=== PATIENT | male | born 1985 | race Caucasian/White ===

== ENCOUNTER 2017-06-09 21:35 | Inpatient (IN) | payer MEDICAID ==
[~2017-06-09] VITALS: Ht 193 cm; Wt 158.8 kg
[2017-06-09 21:35] VITALS: BP 136/87
[~2017-06-09 21:35] MED LIST: BACTRIM DS TAB1 EACH PO; CEPHALEXIN 500500 M3 PO; CIPRO500 MG PO; CLEOCIN HCL150 MG PO; FLAGYL500 MG PO; GLUCOTROL5 MG PO; HYDROCODONE-AP1 EAC6 PO; HYDROCODONE-APA1 TA1 PO; LASIX 20 MG TAB20 MG PO; METFORMIN HCL500 MG PO; PENICILLIN VK250 MG PO; PERCOCET 10-321 EACH PO; TRAMADOL 50 MG50 MG PO; ULTRAM 50MG TAB50 MG PO; ZYVOX600 MG PO
[2017-06-09] MEDS ORDERED: CLEOCIN HCL150 MG PO ×2 (21:42)
[2017-06-09 22:10] LABS: ABSOLUTE BASOPHILS 0.1 thou/uL (0.0-0.2); ABSOLUTE EOSINOPHILS 0.2 thou/uL (0.0-0.7); ABSOLUTE LYMPHOCYTES 1.4 thou/uL (0.8-5.3); ABSOLUTE MONOCYTES 0.7 thou/uL (0.0-1.2); ABSOLUTE NEUTROPHILS 7.6 thou/uL (1.6-8.1); EOSINOPHILS 2.3 %; HEMATOCRIT 46.3 % (42.0-52.0); HEMOGLOBIN 15.3 gm/dL (14.0-18.0); LYMPHOCYTES 14.3 %; MCH 26.8 pg (26.0-34.0); MCV 81.2 fL (80.0-100.0); MONOCYTES 7.1 %; MPV 8.3 fl. (7.2-11.1); NUCLEATED RBCS 0 /100WBC; PLATELET COUNT* 264 thou/uL (150-400); POLYS 75.3 %; WBC 10.1 thou/uL (4.0-11.0)
[2017-06-09 22:20] LABS: CALCIUM 9.2 mg/dL (8.5-10.1); CREATININE 1.2 mg/dL (0.6-1.3); POTASSIUM 4.3 mmol/L (3.5-5.1)
[2017-06-09 22:24] LABS: ALBUMIN 3.4 g/dL (3.4-5.0); TOTAL BILIRUBIN 0.5 mg/dL (<0.1-1.0); TOTAL PROTEIN 7.7 g/dL (6.4-8.2)
[2017-06-09 23:25] LABS: ESR (SEDRATE) 21 mm/hr (0-15)
[2017-06-09 23:40] VITALS: BP 144/78
--- NOTE | 2017-06-10 03:24 | NUR ---
PT MOVED TO HOSPITAL BED. NO C/O'S AT PRESENT.
[2017-06-10 06:21] VITALS: BP 134/67
[2017-06-10 07:23] VITALS: BP 123/70
--- NOTE | 2017-06-10 15:13 | NUR ---
WOUND CARE NOTE: ASSESSMENT OF FOOT WOUNDS WITH TITLE EXAMINER. PATIENT KNOWN TO ME FROM PREVIOUS HOSPITAL STAY. NOW ADMITS WITH AN ULCERATION TO THE LEFT FOOT IN ADDITION TO THE HEALING ULCERATIONS ON THE RIGHT. LEFT FOOT: DIABETIC FOOT ULCER MEASURING 2X1.6X1.1. WOUND BED WITH YELLOW, MOIST, ADHERENT SLOUGH TO APPROXIMATELY 90% OF WOUND BED 10% OF WOUND BED WITH RED, NON-GRANULAR TISSUE. INES-WOUND IS CALLOUSED. AFTER TITLE EXAMINER ASSESSMENT, HELD PRESSURE. THEN DRESSED WITH MAXORB FOR MRI. COVERED WITH ABD. SECURED WITH ROLL GAUZE. RIGHT FOOT, PLANTAR SURFACE: DIABETIC FOOT ULCER MEASURING 0.6X0.6X0.2. PINK, MOIST WOUND BED. INES-WOUND INTACT. CLEANSED WITH WOUND CLEANSER, PATTED DRY. APPLIED AQUACEL AG AND COVERED WITH ABD. SECURED WITH ROLL GAUZE. RIGHT FOOT, LATERAL: HEALING DIABETIC FOOT WOUND MEASURING 1.5X2X0.2. AREA IS WHERE THE INCISION LINE WAS FROM THE AMPUTATION. INES-WOUND IS CALLOUSED. WOUND BED IS RED, MOIST. CLEANSED WITH WOUND CLEANSER, PATTED DRY. APPLIED AQUACEL AG AND COVERED WITH ABD. SECURED WITH ROLL GAUZE. PATIENT WAS EDUCATED ON IMPORTANCE OF SMOKING CESSATION, WILL NEED CONTINUING EDUCATION. ALSO EDUCATED ON THE IMPORTANCE OF KEEPING OFF WOUNDS. RECOMMEND ENCOURAGE GOOD NUTRITION/HYDRATION TIGHT BLOOD GLUCOSE CONTROL SMOKING CESSATION KEEP OFF WOUNDS PATIENT NEEDS BED ADMINISTRATIVE OFFICE CLERK
[2017-06-10 16:00] VITALS: BP 102/74
--- NOTE | 2017-06-10 17:57 | NUR ---
PATIENT IS ALERT AND ORIENTED SINCE ARRIVING TO THE FLOOR FROM THE ER. SOME COMPLAINTS OF PAIN AFTER DR CLEANED FOOT WOUND WAS CONTROLLED WELL WITH ORAL PAIN MEDICATIONS. PATIENT IS LYING IN BED RESTING WITH HIS GIRLFRIEND. IV FLUIDS RUNNING IN LEFT FOREARM. WOUNDS DRESSED AND PICTURES TAKEN. CALL LIGHT IN REACH, WILL CONTINUE TO MONITOR.
[2017-06-10 20:00] VITALS: BP 113/66
[2017-06-11 03:50] LABS: HEMOGLOBIN 15.5 gm/dL (14.0-18.0); MCH 27.2 pg (26.0-34.0); MCHC 33.8 g/dL (28.0-37.0); MCV 80.6 fL (80.0-100.0); MPV 8.9 fl. (7.2-11.1); RBC 5.71 mil/uL (4.50-6.00); WBC 10.8 thou/uL (4.0-11.0)
[2017-06-11 04:11] LABS: CALCIUM 9.1 mg/dL (8.5-10.1); CREATININE 0.8 mg/dL (0.6-1.3); MAGNESIUM 1.7 mg/dL (1.8-2.4); POTASSIUM 4.2 mmol/L (3.5-5.1)
--- NOTE | 2017-06-11 04:42 | NUR ---
ASSUMED CARE OF PT AT 1900, PT SLEEPING BUT AROUSABLE AND ORIENTED X4.VS AND ASSESSMENT STABLE PT DENIED ANY COMPLAINTS AND SLEPT UNTIL 330 AM. PT NPO AFTER MN. WILL MONITOR
[2017-06-11 07:30] VITALS: BP 135/84
--- NOTE | 2017-06-11 07:50 | CON ---
[address] [address] CONSULTATION Name: ANGEL LEE JR Room: [address] IN [facility]#: [id number] Admission: 06/09/17 Attend Phys: Ngozi Browne Discharge: Date of : 87 Report #: [id number] THIS REPORT FOR: //name// CC: FRANCISCO physician/PCP Dave Fuller DATE OF SERVICE: 06/10/2017 ATTENDING PHYSICIAN: Dr. Fuller. REASON FOR EVALUATION: Deep infection, left foot setting of diabetes mellitus. HISTORY OF PRESENT ILLNESS: Chart reviewed, patient examined. This is a 31-year-old man that I have known was hospitalized 02/2017, was diagnosed with deep infection involving his right foot, underwent resection, right distal fifth metatarsal and amputation of the fifth toe and cultures confirmed to have MRSA. He generally healed that, however, developed plantar callus over the left foot midportion over the line of the third MTP joint. He has been followed as an outpatient by Dr. Ly, did undergo debridement and has a concern about osteomyelitis based on plain film. Sed rate was 21, empirically started on piperacillin-tazobactam as well as vancomycin. ALLERGIES: None known. MEDICATIONS: Include Zosyn, vancomycin, metformin, tramadol. PAST MEDICAL HISTORY: As described above, diabetes mellitus type 2, history of osteomyelitis post right fifth toe amputation with metatarsal osteoectomy. SOCIAL HISTORY: Smokes pack a day last 17 years. No ethanol. FAMILY HISTORY: Noncontributory. REVIEW OF SYSTEMS: Denies significant pulmonary or gastrointestinal related complaints. PHYSICAL EXAMINATION: GENERAL: He is pleasant, alert, cooperative, in mild distress. VITAL SIGNS: Temperature 97.7, pulse 99, respirations 16, blood pressure 123/70. SKIN: Warm, dry, no rashes. HEENT: Otherwise, unremarkable. NECK: Supple. LUNGS: Clear to auscultation. HEART: Regular, do not appreciate any murmur. ABDOMEN: [place] [address] CONSULTATION Name: JESUSANGEL KURTZUS ALCARAZ Room: [address] IN [facility]#: [id number] Admission: 06/09/17 Attend Phys: Ngozi Browne Discharge: Date of : 87 Report #: [id number] EXTREMITIES: Left foot plantar aspect has a somewhat ovoid shaped wound. There is moderate degree of inflammation noted. It is palpably tender around the margins. There is an evident odor. GENITOURINARY: Deferred. RECTAL: Deferred. LABORATORY DATA: Cultures pending. Gram stain showed gram-positive cocci. X-ray of the foot showed soft tissue wound with circumferential soft tissue swelling, periosteal reaction involving the proximal aspect of the third proximal phalanx. CBC: White count of 10.1, H and H 15.3 and 46.3, platelets of 264. Sed rate of 21. CRP of 54.1. Electrolytes: Sodium 147, potassium 4.3, chloride 99, bicarbonate is 32, anion gap of 6, BUN and creatinine 11 and 1.2. LFTs unremarkable. Albumin 3.4, total protein of 7.7, estimated GFR of 71. ASSESSMENT AND PLAN: Probable osteomyelitis involving the left foot third proximal digit, may involve the metatarsal as well. Continue empiric antimicrobial therapy. Await cultures. Adjust regimen as required. Wound care and possible operative intervention per Dr. Ly. Have to arrange outpatient therapy. It is notable he has no insurance at this point. <ELECTRONICALLY SIGNED> By: Casimiro Cuadra MD 06/11/17 0750 1148 1840Jomodesto Cuadra MD /nt
[2017-06-11 12:10] VITALS: BP 135/84
--- NOTE | 2017-06-11 17:51 | NUR ---
PATIENT IS ALERT AND ORIENTED TODAY, WENT TO SURGERY TODAY AND HAS BEEN DOING FINE SINCE THEN. NO COMPLAINTS OF ANY PAIN SINCE RETURNING FROM THE OR. IV RESTARTED IN RIGHT HAND AND IT IS WORKING WELL WITH ANTIBIOTICS RUNNING. PATIENT IS NON WEIGHT BEARING ON LEFT FOOT, USING URINAL. PATIENT HAS REFUSED INSULIN AND METFORMIN TODAY SINCE HAS EATEN. VITAL SIGNS STABLE RETURNED FROM THE OR ON 2 LITERS OF OXYGEN. WILL CONTINUE TO MONITOR.
[2017-06-11 20:00] VITALS: BP 117/71
[2017-06-12 03:56] VITALS: BP 131/76
[2017-06-12 04:39] LABS: HEMATOCRIT 43.6 % (42.0-52.0); HEMOGLOBIN 14.5 gm/dL (14.0-18.0); MCHC 33.4 g/dL (28.0-37.0); MPV 8.5 fl. (7.2-11.1); RBC 5.38 mil/uL (4.50-6.00); RDW-CV 13.9 % (10.5-14.5); WBC 11.2 thou/uL (4.0-11.0)
[2017-06-12 05:01] LABS: CALCIUM 8.8 mg/dL (8.5-10.1); CREATININE 0.7 mg/dL (0.6-1.3); MAGNESIUM 1.8 mg/dL (1.8-2.4); POTASSIUM 4.1 mmol/L (3.5-5.1)
--- NOTE | 2017-06-12 05:30 | NUR ---
ASSUMED CARE OF PT AT 1900 PT ALERT AND ORIENTED X4 VS AND ASSESSMENT STABLE BILATERAL FOOT DRSGS INTACT. PT DENIED ANY COMPLAINTS AND SLEPT THROUGH THE NIGHT. WILL MONITOR
[2017-06-12 10:57] VITALS: BP 136/74
[2017-06-12 16:25] VITALS: BP 135/72
--- NOTE | 2017-06-12 16:35 | NUR ---
RE: PHARMACY VANCOMYCIN DOSING (INFECTED FOOT WOUND, R/O OSTEOMYELITIS). PT RECEIVING VANCOMYCIN 1.5 GM IV Q8H. PT HAD VANCOMYCIN TROUGH RESULT OF 10 DRAWN AT APPROPRIATE TIME. (NOTE PRIOR TROUGH OF 11 ON 1.25 GM IV Q8H). WILL RE-CHECK TROUGH PRIOR TO 06/13/17 14:00 DOSE. WILL FOLLOW. THANK YOU.
--- NOTE | 2017-06-12 17:15 | NUR ---
JOSEY/H[facility]ANARC HERE MOST OF THE AFTERNOON HELPING PT.FILL OUT MEDICAID APPLICATION.
--- NOTE | 2017-06-12 17:22 | NUR ---
PATIENT IS ALERT AND ORIENTED TODAY. HAS BEEN RESTING WELL AND NOT COMPLAINING OF MUCH PAIN AT ALL. VITAL SIGNS STABLE TODAY ON ROOM AIR. DRESSING NOT CHANGED TODAY DUE TO PATIENT SLEEPING AND DR SAID IT COULD BE DONE TOMORROW. PATIENT HAS BEEN REFUSING INSULIN TODAY, SAYS BLOOD SUGARS ARE CONTROLLED AT 190, EDUCATION HAS BEEN DONE WITHOUT MUCH SUCCESS. CALL LIGHT IN REACH, WILL CONTINUE TO MONITOR.
[2017-06-12 20:00] VITALS: BP 133/75
[2017-06-12 23:43] VITALS: BP 107/54
--- NOTE | 2017-06-13 05:09 | NUR ---
ASSUMED CARE OF PATIENT AT APPROXIMATELY 1999. UPON FIRST ASSESSMENT, PATIENT WAS ASLEEP IN BED WITH HIS SIGNIFICANT OTHER. PATIENT HAS DENIED ANY PAIN AND HAS NOT ASKED FOR ANY ORDERED PAIN MEDICATIONS PRN. PATIENT'S DRESSING ON HIS RIGHT FOOT IS C/D/I. PATIENT A/O X 4 AND VSS. PATIENT'S DRESSING TO BE CHANGED TODAY. PATIENT WAS SLEEPING DURING DRESSING CHANGE YESTERDAY (06-12-17) AND DR. ALANIS AGREED THAT THE CHANGE COULD BE POSTPONED UNTIL TODAY (06/13/17) WHEN PATIENT WAS AWAKE AND MORE ALERT. NURSING TO FOLLOW UP NECESSARY. ALL FALL PRECAUTIONS IN PLACE, INCLUDING CALL LIGHT WITHIN REACH. WILL CONTINUE TO MONITOR CLOSELY.
[2017-06-13 07:30] VITALS: BP 128/75
[2017-06-13 13:43] VITALS: BP 128/75
[2017-06-13 14:28] VITALS: BP 128/75
--- NOTE | 2017-06-13 15:20 | NUR ---
CONSULTED TO PLACE PICC FOR MOTOR VEHICLES INSPECTOR ATB THERAPY FOR OSTEOMYELITIS. CONSENT AND ORDER NOTED. PROCEDURE WELL RISK AND BENIFITS DISCUSSED WITH PT. HE VOICED UNDERSTANDING. RIGHT UPPER ARM ASSESSED WTIH ULTRASOUND AND BASILIC VEIN IDENTIFIED AND WIDLEY PATENT. A 3FR. SINGLE LUMAN POWER PICC PLACED PER HOSPITAL POLICY. LINE TRIMMED TO 50CM AND ADVANCED LEAVING 3CM EXTERNAL. STAT CHEST X-RAY SHOWS LINE IN GOOD POSITION AT CAJ. LINE RELEASED FOR USE TO PRIMARY NURSING. PROCEDURE TOLERATED WELL.
--- NOTE | 2017-06-13 16:15 | NUR ---
MET WITH PT. TO DISCUSS DISCHARGE. HE HAD TOLD EARLIER HE WAS AGREEABLE TO COMING INTO HOSPITAL DAILY FOR IV INFUSION. HE CONFIRMED THIS TO ME. DISCUSSED TIME TO BE HERE TOMORROW AT 1:30 AND COME TO ADMITTING. ON WEEKENDS HE WILL NEED TO COME TO ER EARLY POSSIBLE FOR INFUSIONS. EXPLAINED F/U WITH IN INFUSION CLINIC AND WITH ON SATURDAY. HE WILL CALL OFFICE TO SEE WHAT TIME TO COME INON SAT. OFFICE IS CLOSED AT THIS TIME. HE SAID HE AND 'DON'T ALWAYS AGREE ON SCHEDULING. I USUALLY GIVE HIM WHAT HE WANTS, BUT NOT ALWAYS.' ENCOURAGED HIM TO BE COMPLIANT. HE SAID HE CAN DO HIS DAILY DRESSING CHANGES. HE DID THE DRESSINGS ON HIS OTHER FOOT. HE HAD NO FURTHER QUESTIONS. NRUSING TO GIVE HIM A WEEKS WORTH OF DRESSINGS. HE IS TO ASK FOR MORE ON SATURDAY. CM HAD FAXED ORDERS AND FACE SHEET EARLIER TO SCHEDULING [id number].
[2017-06-13] MEDS ORDERED: BACTRIM DS TAB1 EACH PO (16:22)
[2017-06-13] MEDS ORDERED: CUBICIN500 MG IVPB (16:23)
--- NOTE | 2017-06-13 17:06 | NUR ---
PATIENT LEFT UNIT AT 1700. ALERT AND ORIENTED X4. UP WITH STAND BY ASSIST WITH SURGICAL SHOE AND CANE. PICC LINE IN PLACE FOR OUTPATIENT INFUSION. DENIES NEED FOR PAIN MEDICATION. DENIES NAUSEA. IV INFILTRATED THIS AM AND DC'D. ALL PERSONAL ITEMS LEFT WITH PATIENT. DISCHARGE INSTRUCTIONS SENT WITH PATIENT. VSS ON ROOM AIR. HOURLY ROUNDS HAVE BEEN MAINTAINED THROUGHOUT SHIFT. LEFT WITH GIRLFRIEND VIA CAR.
[2017-06-13 17:08] VITALS: BP 128/75
--- NOTE | 2017-06-19 13:02 | CON ---
[address] [address] CONSULTATION Name: ANGEL LEE JR Room: [address] IN ..#: [id number] Admission: 06/09/17 Attend Phys: Ngozi Browne Discharge: 06/13/17 Date of : 87 Report #: [id number] THIS REPORT FOR: //name// CC: FRANCISCO physician/PCP Dave Fuller DATE OF SERVICE: 06/12/2017 CHIEF COMPLAINT: Postoperative day #1 for resection, left distal third metatarsal and third toe for osteomyelitis. The patient's preoperative wound culture grew MRSA and Acinetobacter. He is on parenteral vancomycin with good tolerance. He had been afebrile with no constitutional symptoms. Surgical tissue and bone cultures showing gram-positive cocci and gram-negative cocci. LABORATORY DATA: WBC 11.2, RBC 5.38, hemoglobin 14.5, hematocrit 43.6, platelets 256. BUN 8, creatinine 0.7 and glucose 222. PHYSICAL EXAMINATION: GENERAL: The patient is sleeping comfortably in bed, his dressing is dry, clean and intact without any bleed through. PLAN: Since the patient's sleeping I will change his bandage in the morning. Discussed outpatient treatment options to include wound vacuum versus open packing and offloading. <ELECTRONICALLY SIGNED> By: Ford Ly DPM 06/19/17 1302 1713 [id number] Ly DPM /ninoska
--- NOTE | 2017-06-19 13:02 | OP ---
[facility] [address] [place] [address] OPERATIVE REPORT Name: ANGEL LEE JR Room: [address]#: [id number] Admission: 06/09/17 Attend Phys: Ngozi Browne Discharge: 06/13/17 Date of : 87 Report #: [id number] THIS REPORT FOR: //name// CC: FRANCISCO physician/PCP Dave Fuller DATE OF SERVICE: 06/11/2017 PREOPERATIVE DIAGNOSIS: Osteomyelitis, left third metatarsophalangeal joint with a nonhealing ulceration. POSTOPERATIVE DIAGNOSIS: Osteomyelitis, left third metatarsophalangeal joint with a nonhealing ulceration. PROCEDURE: Resection, left distal third metatarsal and third toe. ANESTHESIA: General LMA. ESTIMATED BLOOD LOSS: Minimal. HEMOSTASIS: Left ankle pneumatic tourniquet at 275 mmHg. INJECTABLES: 30 mL of a 1:1 mixture of 0.5% Marcaine plain and 1% lidocaine plain. SPECIMENS: Left third metatarsal and left third toe. CULTURES: 1. Bone, left third metatarsal, aerobic and anaerobic. 2. Soft tissue, left foot, aerobic and anaerobic. SUTURES: 3-0 nylon. COMPLICATIONS: None. DESCRIPTION OF PROCEDURE: The patient was brought to the OR and placed on the table supine with induction of general LMA anesthesia. A well-padded left ankle pneumatic tourniquet was placed. A local anesthetic block was given to left foot, which was then prepped and draped aseptically. After exsanguination and inflation of the tourniquet, a dorsal linear incision was created over the left third metatarsal and circumferentially around the third toe at the MTP level. Layered anatomic dissection carried down to the MTP and the toe was disarticulated at this level. There was boggy infiltration of the subcutaneous tissue about the joint, indicative of a deep soft tissue infection and septic arthritis. There is discoloration of the phalangeal base and distal third metatarsal head. There is no visible lysis, but the bone was [place] [address] OPERATIVE REPORT Name: ANGEL LEE JR Room: [address] IN [facility].#: [id number] Admission: 06/09/17 Attend Phys: Ngozi Browne Discharge: 06/13/17 Date of : 87 Report #: [id number] and soft to the touch when debrided with bone cutters. A access services representative portion of bone from the plantar third metatarsal head was sent for aerobic and anaerobic bone cultures and the remaining distal third metatarsal and third toe were sent for surgical pathology. Paralegal Supervisor soft tissue from the plantar foot ulcer was excised and sent for aerobic and anaerobic tissue culture. Debridement of tendons and soft tissue was achieved and electrocautery was used for intraoperative hemostasis. The wound was flushed with sterile saline with bacitracin irrigant and dried. The dorsal incision was sutured with 3-0 nylon in simple interrupted fashion. The plantar wound was debrided of necrotic infected tissue and cauterized and flushed. It was packed with Aquacel Ag. The foot was then dressed with ABDs, Kerlix and Shahab wrap. The tourniquet was deflated with neurovascular return to the distal toes. The patient left the OR alert and oriented with no pain or complications noted. <ELECTRONICALLY SIGNED> By: Ford Ly DPM 06/19/17 1302 1512 [id number] Ly DPM /ninoska
--- NOTE | 2017-06-19 13:02 | CON ---
[address] [address] CONSULTATION Name: ANGEL LEE JR Room: [address] IN ..#: [id number] Admission: 06/09/17 Attend Phys: Ngozi Browne Discharge: 06/13/17 Date of : 87 Report #: [id number] THIS REPORT FOR: //name// CC: FRANCISCO physician/PCP Dave Fuller Postoperative day 2 for resection, left distal third metatarsal and toe for osteomyelitis. Surgical pathology is pending. Preoperative wound cultures grew MRSA, operative cultures still pending. The patient is on parenteral vancomycin with good tolerance. He has been afebrile, denies malaise, stable appetite. Relates mild left foot pain controlled with medication. There are no new labs for review today. PHYSICAL EXAMINATION: Temperature 98.0, pulse 103, respirations 18, blood pressure 128/75. The plantar foot wound has no active bleeding with a mixture of granulation and slough, no visible bone, as the distal third metatarsal has been resected, the minimal inflammation substantially decreased since prior surgery. The dorsal surgical incision is well coapted with no pallor, cyanosis, dehiscence or drainage. The foot is warm with palpable left dorsalis pedis and posterior tibial pulses. No popliteal adenopathy, no Homans' or Puente sign in either extremity. The right foot was not examined today. IMPRESSION: Status post resection, left distal third metatarsal and toe for osteomyelitis. PLAN: The wound was cleansed and repacked with Aquacel Ag covered with ABDs, Kerlix, and Shahab. I will have the nurse change his right foot bandage later today, as I did not want cross contamination from the left foot. Antibiotics per Infectious Disease. <ELECTRONICALLY SIGNED> By: Ford Ly DPM 06/19/17 1302 1113 1920Ford Ly DPM /nt
--- NOTE | 2017-06-20 10:46 | S ---
[address] [address] SURGICAL PATH RPT PROCEDURE Name: ANGEL LEE Room: [address] IN [facility]#: [id number] Admission: 06/09/17 Date of : 87 Discharge: 06/13/17 Report #: [id number] Path Case #: [id number] PATHOLOGY REPORT COLLECTION DATE: 06/11/2017 RECEIVED DATE: 06/12/2017 SUBMITTING PHYS: Dr. Lionel Dorado OTHER PHYS: Dr. Dave Cuadra SPECIMEN(S) RECEIVED: A.Left metatarsal and 3rd toe * * * * * * * * * * * * FINAL DIAGNOSIS: Left metatarsal and third toe: - Benign toe with acute inflammation of soft tissues and osteomyelitis of phalangeal base. - Separate osteocartilaginous segment compatible with distal metatarsal with focal osteomyelitis at articular end, with inked transection margin widely free of involvement. (MORA:mgr; 06/19/2017) PATHOLOGIST: Lefty Valerio M.D. REPORT ELECTRONICALLY SIGNED BY: Lefty Valerio M.D. DATE/TIME: 06/20/2017 10:46 * * * * * * * * * * * * GROSS PATHOLOGY: Received in formalin labeled "Angel Lee, left metatarsal and third toe" and consists of a toe measuring 7.8 cm in length by 2.2 cm in diameter and a segment of bone consistent with a metatarsal measuring 4.2 cm in length, with diameter ranging from 1.3 cm to 2.1 cm. The toe shows skin at the distal half which appears grossly unremarkable. A nail plate measures 0.8 cm in diameter. The soft tissue and cutaneous margin appears grossly unremarkable. The bone margin is concave and demonstrates smooth articular cartilage. The toe margin is inked blue. The metatarsal bone demonstrates a smooth flat margin while the opposite end is convex and surfaced by glistening wright cartilage. The metatarsal bone margin is inked black. Each is longitudinally sectioned. There are no soft tissue lesions and the cancellous bone is glistening, wright, and yellow. Real Property Evaluator sections are submitted A1-A5. A1-A3 longitudinal section of toe, trisected A4-A5 longitudinal section of bone segment, bisected (RYAN; 06/14/2017) [place] [address] SURGICAL PATH RPT PROCEDURE Name: JESUSANGEL KURTZUS ALCARAZ Room: [address] IN [facility].#: [id number] Admission: 06/09/17 Date of : 87 Discharge: 06/13/17 Report #: [id number] Path Case #: [id number] CLINICAL HISTORY: Cellulitis INITIAL CPT CODE(S): A; 88844, 60226 Professional services performed by [facility] at [address] [address] Technical services performed by [facility] at [address] [place] [address]., [address], [place] [address]. [facility] [address] [address] PHONE: [phone] DIRECTOR: Misael Coombs M.D. * * * END OF REPORT * * *
[2017-10-04] MEDS ORDERED: XANAX 0.5 MG0.5 MG PO (09:12)
[2017-10-11] MEDS ORDERED: FLAGYL500 MG PO (13:15)
[2017-10-11] MEDS ORDERED: HUMULIN R100 UNIT/M SUBQ (13:28)
[2017-10-11] MEDS ORDERED: LANTUS100 UNIT/M SUBQ (13:40)
[2017-10-11] MEDS ORDERED: VANCOMYCIN1.5 GM/253 IV (13:55)
[2017-10-11] MEDS ORDERED: ASPIRIN325 PO (16:12)
[2018-03-31] MEDS ORDERED: CLEOCIN HCL150 MG PO (10:41)
== END 2017-06-13 17:00 | disposition home or self-care (01) | DRG 629 ==
LOC: M.ERS 21:35 → M.ORTHSURG 23:31 → M.TBA-ER 23:31 → M.ORTHSURG 06-10 11:22
PROVIDERS: Emergency Medicine; Internal Medicine; ADMIT Internal Medicine
PROC: 0QBR0ZZ Excision of Left Toe Phalanx, Open Approach (ICD-10-PCS; principal; 2017-06-11)
PROC: 0QBP0ZZ Excision of Left Metatarsal, Open Approach (ICD-10-PCS; principal; 2017-06-11)
PROC: 02HV33Z Insertion of Infusion Device into Superior Vena Cava, Percutaneous Approach (ICD-10-PCS; 2017-06-13)
PROC: B548ZZA Ultrasonography of Superior Vena Cava, Guidance (ICD-10-PCS; 2017-06-13)
DX: E11.69 Type 2 diabetes mellitus with other specified complication (principal); M86.8X7 Other osteomyelitis, ankle and foot; M00.9 Pyogenic arthritis, unspecified; B95.62 Methicillin resistant Staphylococcus aureus infection as the cause of diseases classified elsewhere; E11.621 Type 2 diabetes mellitus with foot ulcer; E66.01 Morbid (severe) obesity due to excess calories; F17.210 Nicotine dependence, cigarettes, uncomplicated; E11.42 Type 2 diabetes mellitus with diabetic polyneuropathy; E11.65 Type 2 diabetes mellitus with hyperglycemia; Z68.41 Body mass index [BMI] 40.0-44.9, adult; Z89.421 Acquired absence of other right toe(s); Z79.899 Other long term (current) drug therapy

== ENCOUNTER → 2017-06-14 | Outpatient (CLI) | payer MEDICAID ==
[~2017-06-14] MED LIST changes: +ASPIRIN325 PO; +CUBICIN500 MG IVPB; +DAPTOMYCIN500 MG IV; +HUMULIN R100 UNIT/M SUBQ; +LANTUS SUBQ; +LANTUS100 UNIT/M SUBQ; +NORCO 10-325 T1 EACH PO; +PROZAC20 MG PO; +VANCOMYCIN1.5 GM/253 IV; +XANAX 0.5 MG0.5 MG PO
[2017-06-14 14:45] VITALS: BP 142/61
--- NOTE | 2017-06-14 14:45 | NUR ---
ASSUMED CARE OF PATIENT FROM HOME. HE IS DOING WELL, HE HAS NO CO OF PAIN OR NAUSEA AT THIS TIME. HE WAS EDUCATED ON PLAN OF CARE AND MEDICATIONS.
== END ==
LOC: M.INFUS 04:55
DX: E11.621 Type 2 diabetes mellitus with foot ulcer (principal); L97.529 Non-pressure chronic ulcer of other part of left foot with unspecified severity; L97.519 Non-pressure chronic ulcer of other part of right foot with unspecified severity

== ENCOUNTER → 2017-06-15 | Outpatient (CLI) | payer MEDICAID | LOC: M.INFUS 08:00 | DX: E11.621 Type 2 diabetes mellitus with foot ulcer (principal); L97.529 Non-pressure chronic ulcer of other part of left foot with unspecified severity; L97.519 Non-pressure chronic ulcer of other part of right foot with unspecified severity ==

== ENCOUNTER → 2017-06-16 | Outpatient (CLI) | payer MEDICAID | LOC: M.INFUS 08:00 | DX: E11.621 Type 2 diabetes mellitus with foot ulcer (principal); L97.529 Non-pressure chronic ulcer of other part of left foot with unspecified severity; L97.519 Non-pressure chronic ulcer of other part of right foot with unspecified severity ==

== ENCOUNTER → 2017-06-17 | Outpatient (CLI) | payer MEDICAID ==
[2017-06-17 09:50] VITALS: BP 122/76
--- NOTE | 2017-06-17 11:55 | NUR ---
ARRIVED AMBULATORY. MADE SELF COMFORTABLE IN RECLINER. PICC DRESSING TO RIGHT UPPER ARM WITH ALL EDGES LIFTING OFF. EXTRA TAPE APPLIED BY PT. PT STATED THAT THE DRESSING HAD BEEN CHANGED OVER THE WEEKEND WELL, SITING MOISTURE A PROBLEM. NEW DRESSING APPLIED- STATLOCK, BIOPATCH, AND STRATASORB COMPOSITE ISLAND WOUND DRESSING. TUBE NETTING ALSO APPLIED EXTRA SUPPORT. DENEIS ADVERSE REACTION TO PRIOR INFUSIONS OF SAME. INFUSION COMPLETED AND TOLERATED WELL. DENEIS QUESTIONS OR NEEDS AT DISCHARGE.
== END ==
LOC: M.INFUS 06:04
DX: E11.621 Type 2 diabetes mellitus with foot ulcer (principal); L97.529 Non-pressure chronic ulcer of other part of left foot with unspecified severity; L97.519 Non-pressure chronic ulcer of other part of right foot with unspecified severity

== ENCOUNTER → 2017-06-18 | Outpatient (CLI) | payer MEDICAID ==
[2017-06-18 09:00] VITALS: BP 132/78
--- NOTE | 2017-06-18 10:15 | NUR ---
ARRIVED AMBULATORY. MADE SELF COMFORTABLE IN RECLINER. PICC DRESSING SATURATED WITH LIGHT YELLOW TINGED DISCHARGE. DRESSING REMOVED. NO SIGN OF INFECTION NOTED TO PICC INSERTION SITE. PT STATES HE SWEATS ALOT AT NIGHT. INSERTIONS ITE CLEANED AND NEW DRESSING APPLIED. DENIES ADVERSE REACTION TO INFUSION. INFUSION COMPLETED AND TOLERATED WELL.
== END ==
LOC: M.INFUS 01:51
DX: E11.621 Type 2 diabetes mellitus with foot ulcer (principal); L97.519 Non-pressure chronic ulcer of other part of right foot with unspecified severity; L97.529 Non-pressure chronic ulcer of other part of left foot with unspecified severity

== ENCOUNTER → 2017-06-19 | Outpatient (CLI) | payer MEDICAID ==
[2017-06-19 10:20] VITALS: BP 125/79
--- NOTE | 2017-06-19 11:36 | NUR ---
ARRIVED AMBUALTORY WITH GIRLFRIEND. MADE SELF COMFORTABLE. PICC DRESSING SATURATED WITH YELLOW RING AROUND THE OUTSIDE OF GAUZE. NO SIGN OF INFECTION NOTED. PICC PATENT WITH EASY FLUSH AND GOOD BLOOD RETURN. DENIES ADVERSE REACTION TO MULTIPLE PRIOR INFUSIONS OF SAME. INFUSION COMPLETED AND TOLERATED WELL PICC FLUSHED PER PROTOCOL. DDENIES QUESTIONS OR NEDS AT DISCHARGE.
== END ==
LOC: M.INFUS 04:19
DX: E11.621 Type 2 diabetes mellitus with foot ulcer (principal); L97.529 Non-pressure chronic ulcer of other part of left foot with unspecified severity; L97.519 Non-pressure chronic ulcer of other part of right foot with unspecified severity

== ENCOUNTER → 2017-06-20 | Outpatient (CLI) | payer MEDICAID ==
[2017-06-20 10:00] VITALS: BP 132/76
[2017-06-20 10:00] LABS: ABSOLUTE BASOPHILS 0.1 thou/uL (0.0-0.2); ABSOLUTE EOSINOPHILS 0.3 thou/uL (0.0-0.7); ABSOLUTE LYMPHOCYTES 1.6 thou/uL (0.8-5.3); ABSOLUTE MONOCYTES 0.6 thou/uL (0.0-1.2); ABSOLUTE NEUTROPHILS 7.1 thou/uL (1.6-8.1); BASOPHILS 1.4 %; HEMATOCRIT 41.7 % (42.0-52.0); HEMOGLOBIN 13.8 gm/dL (14.0-18.0); LYMPHOCYTES 16.2 %; MCH 26.8 pg (26.0-34.0); MCHC 33.1 g/dL (28.0-37.0); MONOCYTES 6.4 %; MPV 8.2 fl. (7.2-11.1); NUCLEATED RBCS 0 /100WBC; PLATELET COUNT* 275 thou/uL (150-400); RBC 5.15 mil/uL (4.50-6.00); RDW-CV 13.9 % (10.5-14.5); WBC 9.8 thou/uL (4.0-11.0)
[2017-06-20 10:16] LABS: ALBUMIN 3.1 g/dL (3.4-5.0); CALCIUM 8.5 mg/dL (8.5-10.1); CREATININE 0.9 mg/dL (0.6-1.3); POTASSIUM 3.9 mmol/L (3.5-5.1); TOTAL BILIRUBIN 0.2 mg/dL (<0.1-1.0); TOTAL PROTEIN 6.5 g/dL (6.4-8.2)
--- NOTE | 2017-06-20 10:47 | NUR ---
ARRIVED MABULATORY. MADE SELF COMFORTABLE. DENIES ADVERSE REACTION TO MULTIPLE PRIOR INFUSIONS OF SAME. PICC PATENT WITH GOOD BRISK BLOOD RETURN AND EASY FLUSH. WEEKLY LABS DRAW. PIC DRESSING COMPLETELY SATUREATED AND BOTOM PEELED BACK WITH INSERTION SITE EXPOSED. BIOPATCH STILL IN PLACE. PICC DRESSING CHANGED. INFUSION COMPLETED AND TOLERATED WELL. DENEIS NEEDS AT DISCHARGE.
[2017-06-20 11:12] LABS: ESR (SEDRATE) 20 mm/hr (0-15)
== END ==
LOC: M.INFUS 05:54
PROVIDERS: Specialist
DX: E11.621 Type 2 diabetes mellitus with foot ulcer (principal); L97.519 Non-pressure chronic ulcer of other part of right foot with unspecified severity; L97.529 Non-pressure chronic ulcer of other part of left foot with unspecified severity

== ENCOUNTER → 2017-06-21 | Outpatient (CLI) | payer MEDICAID ==
[2017-06-21 09:25] VITALS: BP 134/96
--- NOTE | 2017-06-21 11:11 | NUR ---
ARRIVED AMBULATORY. MADE SELF COMFORTABLE IN RECLINER. PICC DRESSING COMPLETELY SATURATED. DR. AMIN HERE TO SEE PT AND LOOKED AT DRESSING. NO SIGN OF INFECTION NOTED. DRESSING, STATLOCK AND BIOPATCH CHANGED. PICC PATENT WTIH GOOD BRISK BLOOD RETURN AND EASY FLUSH. INFSUION COMPLETED AND TOLERATED WELL. DENIES NEEDS AT DISCHARGE.
--- NOTE | 2017-06-24 07:50 | CON ---
[address] [address] CONSULTATION Name: ANGEL LEE JR Room: [facility]#: [id number] Admission: 06/21/17 Attend Phys: Casimiro Cuadra MD Discharge: Date of : 87 Report #: [id number] THIS REPORT FOR: //name// CC: FAM physician/PCP Casimiro Cuadra DATE OF SERVICE: 06/21/2017 INFECTIOUS DISEASE CONSULTATION ATTENDING PHYSICIAN: Dr. Ford Ly He is seen in the outpatient infusion area for evaluation of chronic osteomyelitis involving his right foot. He generally has been doing fairly well. He has completed roughly 2 weeks of parenteral therapy for Staphylococcus aureus, which is MRSA. He has been utilizing daptomycin on once daily approach. Review of the labs otherwise fairly unremarkable. Sed rate is decreasing. He denies any localizing signs or symptoms. He has not been febrile. Appetite has been good. His blood sugars have been somewhat erratic. He is estimating his insulin. His insulin supply is pending insurance approval with Medicaid. He is also having difficulty with his PICC line. Apparently it has been saturated daily and needed to be changed daily due to his hyperhidrosis. On examination, the site appears to be fairly bland. There is no significant superficial inflammation noted. Still a little discomfort. Chronic osteomyelitis. We will continue the current approach and may just have to do dressing change to the PICC site on daily basis. Continue to follow up with Dr. Ly. We will see him in 2 weeks. Continue weekly labs. <ELECTRONICALLY SIGNED> By: Casimiro Cuadra MD 06/24/17 0750 1033 1905Josefred Cuadra MD /nt
== END ==
LOC: M.INFUS 04:46
DX: E11.621 Type 2 diabetes mellitus with foot ulcer (principal); L97.519 Non-pressure chronic ulcer of other part of right foot with unspecified severity; L97.529 Non-pressure chronic ulcer of other part of left foot with unspecified severity

== ENCOUNTER → 2017-06-22 | Outpatient (CLI) | payer MEDICAID | LOC: M.INFUS 08:00 | DX: E11.621 Type 2 diabetes mellitus with foot ulcer (principal); L97.519 Non-pressure chronic ulcer of other part of right foot with unspecified severity; L97.529 Non-pressure chronic ulcer of other part of left foot with unspecified severity ==

== ENCOUNTER → 2017-06-23 | Outpatient (CLI) | payer MEDICAID | LOC: M.INFUS 08:00 | DX: E11.621 Type 2 diabetes mellitus with foot ulcer (principal); L97.519 Non-pressure chronic ulcer of other part of right foot with unspecified severity; L97.529 Non-pressure chronic ulcer of other part of left foot with unspecified severity ==

== ENCOUNTER → 2017-06-24 | Outpatient (CLI) | payer MEDICAID ==
[2017-06-24 14:10] VITALS: BP 120/64
== END ==
LOC: M.INFUS 06:46
DX: E11.621 Type 2 diabetes mellitus with foot ulcer (principal); L97.519 Non-pressure chronic ulcer of other part of right foot with unspecified severity; L97.529 Non-pressure chronic ulcer of other part of left foot with unspecified severity

== ENCOUNTER → 2017-06-25 | Outpatient (CLI) | payer MEDICAID ==
[2017-06-25 09:10] VITALS: BP 122/74
--- NOTE | 2017-06-25 10:47 | NUR ---
ARRIVED AMBULATORY. MADE SELF COMFORTABLE IN RECLINER. PICC GAUZE AND DRESSING SATURATED WITH CLEAR FLUID. NO SIGN OF INFECTION NOTED.DRESSING CHANGED. PICC PATENT WITH EASY FLUSH AND GOOD BRISK BLOOD RETURN. INFUSION COMPLETED AND TOLERATED WELL. DENIES NEEDS AT DISCHARGE.
== END ==
LOC: M.INFUS 02:07
DX: E11.621 Type 2 diabetes mellitus with foot ulcer (principal); L97.519 Non-pressure chronic ulcer of other part of right foot with unspecified severity; L97.529 Non-pressure chronic ulcer of other part of left foot with unspecified severity

== ENCOUNTER → 2017-06-26 | Outpatient (CLI) | payer MEDICAID ==
[2017-06-26 09:35] VITALS: BP 151/90
--- NOTE | 2017-06-26 11:24 | NUR ---
Pt ambulated to infusion and seated self in recliner. Reviewed medical and medication history and no updates needed. Pt has PICC line and flushes easily and aroldo briskly back blood. Started infusion dapto at 0955, completed at 1028. Flushed with 20ML of NS and dressing change was done. Pt ambulated out for discharge.
== END ==
LOC: M.INFUS 04:21
DX: E11.621 Type 2 diabetes mellitus with foot ulcer (principal); L97.519 Non-pressure chronic ulcer of other part of right foot with unspecified severity; L97.529 Non-pressure chronic ulcer of other part of left foot with unspecified severity

== ENCOUNTER → 2017-06-27 | Outpatient (CLI) | payer MEDICAID ==
[2017-06-27 09:20] VITALS: BP 122/74
--- NOTE | 2017-06-27 10:41 | NUR ---
ARRIVED AMBULATORY. MADE SELF COMFORTABLE IN RECLINER. PICC LINE INTACT. DRESSING AND BIOPATCH FULLY STURATED WITH CLEAR FLUID. NO SIGN OF INFECTION NOTED. DRESSING CHANGED. DENEIS ADVERS REACTION TO MULTIPLE INFUSIONS OF SAME. INFSUION COMPLETED AND TOLERATED WELL. PICC FLLUSHED. DENIES NEEDS AT DISCHARGE.
== END ==
LOC: M.INFUS 02:50
DX: E11.621 Type 2 diabetes mellitus with foot ulcer (principal); L97.529 Non-pressure chronic ulcer of other part of left foot with unspecified severity; L97.519 Non-pressure chronic ulcer of other part of right foot with unspecified severity

== ENCOUNTER → 2017-06-28 | Outpatient (CLI) | payer MEDICAID ==
[2017-06-28 09:00] VITALS: BP 99/40
[2017-06-28 10:15] VITALS: BP 123/81
[2017-06-28 10:15] LABS: ABSOLUTE BASOPHILS 0.1 thou/uL (0.0-0.2); ABSOLUTE EOSINOPHILS 0.4 thou/uL (0.0-0.7); ABSOLUTE LYMPHOCYTES 1.8 thou/uL (0.8-5.3); ABSOLUTE MONOCYTES 0.8 thou/uL (0.0-1.2); ABSOLUTE NEUTROPHILS 6.9 thou/uL (1.6-8.1); BASOPHILS 0.6 %; EOSINOPHILS 4.5 %; HEMATOCRIT 45.5 % (42.0-52.0); MCH 27.1 pg (26.0-34.0); MCHC 33.1 g/dL (28.0-37.0); MONOCYTES 7.9 %; NUCLEATED RBCS 0 /100WBC; PLATELET COUNT* 236 thou/uL (150-400); RBC 5.55 mil/uL (4.50-6.00); RDW-CV 14.5 % (10.5-14.5)
--- NOTE | 2017-06-28 10:15 | NUR ---
ASSUMED CARE OF PATIENT FROM HOME. HE IS DOING WELL. HE IS ALERT WITH NO CO OF PAIN OR NAUSEA. HE WAS EDUCATED ON PLAN OF CARE AND DISEASE PROCESS AND DISCAHRGE PROCESS. WILL CONTINUE TO MONITOR.
[2017-06-28 10:36] LABS: ALBUMIN 3.3 g/dL (3.4-5.0); CALCIUM 8.8 mg/dL (8.5-10.1); CREATININE 0.9 mg/dL (0.6-1.3); TOTAL BILIRUBIN 0.4 mg/dL (<0.1-1.0); TOTAL PROTEIN 7.4 g/dL (6.4-8.2)
[2017-06-28 12:11] LABS: ESR (SEDRATE) 37 mm/hr (0-15)
== END ==
LOC: M.INFUS 01:53
PROVIDERS: Specialist
DX: E11.621 Type 2 diabetes mellitus with foot ulcer (principal); L97.519 Non-pressure chronic ulcer of other part of right foot with unspecified severity; L97.529 Non-pressure chronic ulcer of other part of left foot with unspecified severity

== ENCOUNTER → 2017-06-29 | Outpatient (CLI) | payer MEDICAID | LOC: M.INFUS 08:00 | DX: E11.621 Type 2 diabetes mellitus with foot ulcer (principal); L97.529 Non-pressure chronic ulcer of other part of left foot with unspecified severity; L97.519 Non-pressure chronic ulcer of other part of right foot with unspecified severity ==

== ENCOUNTER → 2017-06-30 | Outpatient (CLI) | payer MEDICAID | LOC: M.INFUS 09:00 | DX: E11.621 Type 2 diabetes mellitus with foot ulcer (principal); L97.529 Non-pressure chronic ulcer of other part of left foot with unspecified severity; L97.519 Non-pressure chronic ulcer of other part of right foot with unspecified severity ==

== ENCOUNTER → 2017-07-01 | Outpatient (CLI) | payer MEDICAID ==
[2017-07-01 09:22] VITALS: BP 121/75
--- NOTE | 2017-07-01 10:32 | NUR ---
ARRIVED AMBULATORY. MADE SELF COMFORTABLE IN RECLINER. DENIES ADVERSE REACTION TO PRIOR INFUSIONS OF SAME. PICC DRESSING INTACT. PICC DRESSING CHANGED RELATED TO LARGE AMOUNT OF CLEAR DRAINAGE AND GAUZE UNDER DRESSING. NO SIGN OF INFECTION NOTED. PICC PATENT WITH GOOD BRISK BLOOD RETURN AND EASY FLUSH. INFUSION COMPLETED AND TOLERATED WELL. DENIES NEEDS AT DISCHAGE.
== END ==
LOC: M.INFUS 00:59
DX: E11.621 Type 2 diabetes mellitus with foot ulcer (principal); L97.529 Non-pressure chronic ulcer of other part of left foot with unspecified severity; L97.519 Non-pressure chronic ulcer of other part of right foot with unspecified severity

== ENCOUNTER → 2017-07-02 | Outpatient (CLI) | payer MEDICAID ==
[2017-07-02 09:20] VITALS: BP 118/74
--- NOTE | 2017-07-02 10:29 | NUR ---
ARRIVED AAMBULATORY. MADE SELF COMFORTABLE IN RECLINER. PICC DRESSING INTACT BUT COMPLETELY SATURATED WITH CLEAR FLUID. DRESSING CHANGED. INFUSION COMPLETED AND TOLERATED WELL. DENIES NEEDS AT DISCHARGE.
== END ==
LOC: M.INFUS 04:46
DX: E11.621 Type 2 diabetes mellitus with foot ulcer (principal); L97.529 Non-pressure chronic ulcer of other part of left foot with unspecified severity; L97.519 Non-pressure chronic ulcer of other part of right foot with unspecified severity

== ENCOUNTER → 2017-07-03 | Outpatient (CLI) | payer MEDICAID ==
[2017-07-03 09:40] VITALS: BP 122/74
--- NOTE | 2017-07-03 10:50 | NUR ---
ARRIVED AMUBLATORY. MADE SELF COMFORTABLE IN RECLINER. RIGHT UPPER ARM PICC INTACT WITH DRESSING INTACT. DRESSING CHANGED RELATED TO GAUZE USED AND LARGE AMOUNT OF DRAINAGE. TOLERATED WELL. DENIES NEEDS AT DISCHARGE.
== END ==
LOC: M.INFUS 04:01
DX: E11.621 Type 2 diabetes mellitus with foot ulcer (principal); L97.529 Non-pressure chronic ulcer of other part of left foot with unspecified severity; L97.519 Non-pressure chronic ulcer of other part of right foot with unspecified severity

== ENCOUNTER → 2017-07-06 | Outpatient (CLI) | payer MEDICAID | LOC: M.INFUS 08:00 | DX: E11.621 Type 2 diabetes mellitus with foot ulcer (principal); L97.529 Non-pressure chronic ulcer of other part of left foot with unspecified severity; L97.519 Non-pressure chronic ulcer of other part of right foot with unspecified severity ==

== ENCOUNTER → 2017-07-07 | Outpatient (CLI) | payer MEDICAID | LOC: M.INFUS 08:00 | DX: E11.621 Type 2 diabetes mellitus with foot ulcer (principal); L97.529 Non-pressure chronic ulcer of other part of left foot with unspecified severity; L97.519 Non-pressure chronic ulcer of other part of right foot with unspecified severity ==

== ENCOUNTER → 2017-07-08 | Outpatient (CLI) | payer MEDICAID ==
[2017-07-08 10:20] VITALS: BP 124/78
--- NOTE | 2017-07-08 16:02 | NUR ---
ARRIVED AMBULATORY. MADE SELF COMFORTABLE IN RELCINER. PICC INTACT AND DRESSING DRY. DRESSING CHANGED RELATED TO GAUZE. NO GAUZE PLACED UNDER DRESSING THIS TIME RELATED TO DRESSING BEING DRY LAST 4 DRESSING CHANGES. PICC PATENT WITH GOOD BLOOD RETURN AND EASY FLUSH. INFUSION COMPLETED AND TOLERATED WELL. DENIES NEEDS AT DISCHARGE.
== END ==
LOC: M.INFUS 06:26
DX: E11.621 Type 2 diabetes mellitus with foot ulcer (principal); L97.529 Non-pressure chronic ulcer of other part of left foot with unspecified severity; L97.519 Non-pressure chronic ulcer of other part of right foot with unspecified severity

== ENCOUNTER → 2017-07-09 | Outpatient (CLI) | payer MEDICAID ==
[2017-07-09 09:08] VITALS: BP 124/76
--- NOTE | 2017-07-09 10:55 | NUR ---
ARRIVED AMBULATORY. MADE SELF COMFORTABLE IN RECLINER. PICC INTACT WITH DRESSING C/D/I AND PATENT WITH GOOD BRISK BLOOD RETURN AND EASY FLUSH. INFUSION COMPLETED AND TOLERATED WELL. DENIES NEEDS AT DISCHARGE.
== END ==
LOC: M.INFUS 01:17
DX: E11.621 Type 2 diabetes mellitus with foot ulcer (principal); L97.529 Non-pressure chronic ulcer of other part of left foot with unspecified severity; L97.519 Non-pressure chronic ulcer of other part of right foot with unspecified severity

== ENCOUNTER → 2017-07-11 | Outpatient (CLI) | payer MEDICAID ==
[2017-07-11 09:30] VITALS: BP 116/75
--- NOTE | 2017-07-11 10:00 | NUR ---
ASSUMED CARE OF SARAHI FROM HOME. HE IS DOING WELL WITH NO COOF PAIN OR NASUEA. HE WAS EDUCATED ON PLAN OF CARE AND DISEASE PROCESS. WILL CONTINUE TO MONITOR.
== END ==
LOC: M.INFUS 04:14
DX: E11.621 Type 2 diabetes mellitus with foot ulcer (principal); L97.529 Non-pressure chronic ulcer of other part of left foot with unspecified severity; L97.519 Non-pressure chronic ulcer of other part of right foot with unspecified severity

== ENCOUNTER → 2017-07-12 | Outpatient (CLI) | payer MEDICAID ==
[2017-07-12 10:49] LABS: HEMATOCRIT 44.1 % (42.0-52.0); HEMOGLOBIN 14.5 gm/dL (14.0-18.0); MCH 27.2 pg (26.0-34.0); MCV 82.4 fL (80.0-100.0); NUCLEATED RBCS 0 /100WBC; PLATELET COUNT* 190 thou/uL (150-400); RBC 5.35 mil/uL (4.50-6.00); RDW-CV 14.2 % (10.5-14.5)
--- NOTE | 2017-07-12 11:00 | NUR ---
ARRIVED AMBULATORY. MADE SELF COMFORTABLE IN RECLINER. REFUSED VITALS. LABS DRAWN FROM PICC WITHOUT DIFFICULTY. INFUSION COMPLETED AND TOELRATED WELL. DENIES NEEDS AT DISCHARGE.
[2017-07-12 11:10] LABS: ABSOLUTE BASOPHILS 0.1 thou/uL (0.0-0.2); ABSOLUTE EOSINOPHILS 1.2 thou/uL (0.0-0.7); ABSOLUTE LYMPHOCYTES 0.8 thou/uL (0.8-5.3); ABSOLUTE MONOCYTES 0.5 thou/uL (0.0-1.2); ABSOLUTE NEUTROPHILS 5.4 thou/uL (1.6-8.1); ATYPICAL LYMPHS 5 %
[2017-07-12 11:11] LABS: PLATELET ESTIMATE ADEQUATE
[2017-07-12 11:18] LABS: ALBUMIN 3.3 g/dL (3.4-5.0); CALCIUM 8.7 mg/dL (8.5-10.1); POTASSIUM 4.2 mmol/L (3.5-5.1); TOTAL BILIRUBIN 0.3 mg/dL (<0.1-1.0); TOTAL PROTEIN 6.8 g/dL (6.4-8.2)
[2017-07-12 12:05] LABS: ESR (SEDRATE) 25 mm/hr (0-15)
== END ==
LOC: M.INFUS 01:24
PROVIDERS: Specialist
DX: E11.621 Type 2 diabetes mellitus with foot ulcer (principal); L97.519 Non-pressure chronic ulcer of other part of right foot with unspecified severity; L97.529 Non-pressure chronic ulcer of other part of left foot with unspecified severity

== ENCOUNTER → 2017-07-15 | Outpatient (CLI) | payer MEDICAID ==
--- NOTE | 2017-07-15 14:59 | NUR ---
ARRIVED AMBULATORY. STATED DID NOT COME IN OVER THE WEEKEND RELATED TO FAMILY PROBLEM. STATED HAD TO BE IN [place] WITH HIS MOTHER. IMPORTANCE OF INFUSIONS RELATED. VOICED UNDERSTANDING. PICC INTACT WITH DRESSING C/D/I. PICC PATENT WITH GOOD FLUSH AND EASY RETURN. INFUSION COMPLETED AND TOLERATED WELL. DENIES NEEDS AT DISCHARGE.
== END ==
LOC: M.INFUS 00:16
DX: E11.621 Type 2 diabetes mellitus with foot ulcer (principal); L97.519 Non-pressure chronic ulcer of other part of right foot with unspecified severity; L97.529 Non-pressure chronic ulcer of other part of left foot with unspecified severity

== ENCOUNTER → 2017-07-16 | Outpatient (CLI) | payer MEDICAID ==
--- NOTE | 2017-07-16 10:49 | NUR ---
PATIENT REPORTS FOR DAPTOMYCIN INFUSION. REPORTED TO THIS NURSE THAT VS WERE TAKEN BY ANOTHER NURSE IN DEPARTMENT, BUT DISCOVERED THAT THEY WERE NOT.
== END ==
LOC: M.INFUS 01:33
DX: E11.621 Type 2 diabetes mellitus with foot ulcer (principal); L97.519 Non-pressure chronic ulcer of other part of right foot with unspecified severity; L97.529 Non-pressure chronic ulcer of other part of left foot with unspecified severity

== ENCOUNTER → 2017-07-18 | Outpatient (CLI) | payer MEDICAID ==
[2017-07-18 10:05] LABS: HEMOGLOBIN 14.6 gm/dL (14.0-18.0); MCH 27.2 pg (26.0-34.0); MCHC 33.2 g/dL (28.0-37.0); MPV 9.1 fl. (7.2-11.1); NUCLEATED RBCS 0 /100WBC; PLATELET COUNT* 201 thou/uL (150-400); RBC 5.36 mil/uL (4.50-6.00); RDW-CV 14.6 % (10.5-14.5); WBC 11.8 thou/uL (4.0-11.0)
[2017-07-18 10:15] LABS: ALBUMIN 3.3 g/dL (3.4-5.0); CALCIUM 8.5 mg/dL (8.5-10.1); CREATININE 0.9 mg/dL (0.6-1.3); TOTAL BILIRUBIN 0.5 mg/dL (<0.1-1.0); TOTAL PROTEIN 7.2 g/dL (6.4-8.2)
[2017-07-18 10:36] LABS: ABSOLUTE BASOPHILS 0.1 thou/uL (0.0-0.2); ABSOLUTE EOSINOPHILS 1.2 thou/uL (0.0-0.7); ABSOLUTE LYMPHOCYTES 0.9 thou/uL (0.8-5.3); ABSOLUTE MONOCYTES 0.8 thou/uL (0.0-1.2); ABSOLUTE NEUTROPHILS 8.7 thou/uL (1.6-8.1); PLATELET ESTIMATE ADEQUATE
--- NOTE | 2017-07-18 10:43 | NUR ---
ARRIVED AMBULATORY. MADE SELF COMFORTABLE IN RECLIENR. PICC DRESSING C/D/I AND PICC PATENT WTIH GOOD BLOOD RETURN AND EASY FLUSH. INFUSION COMPLETED AND TOLERATED WELL. PT REFUSED VS. DENEIS NEEDS AT DISCHARGE.
[2017-07-18 11:14] LABS: ESR (SEDRATE) 16 mm/hr (0-15)
== END ==
LOC: M.INFUS 01:23
PROVIDERS: Specialist
DX: E11.621 Type 2 diabetes mellitus with foot ulcer (principal); L97.519 Non-pressure chronic ulcer of other part of right foot with unspecified severity; L97.529 Non-pressure chronic ulcer of other part of left foot with unspecified severity

== ENCOUNTER → 2017-07-19 | Outpatient (CLI) | payer MEDICAID ==
[2017-07-19 09:40] VITALS: BP 119/75
--- NOTE | 2017-07-19 12:06 | NUR ---
ARRIVED AMBULATORY. MADE SELF COMFORTABLE IN RECLINER. DR. AMIN HERE ADN EVALUATED PT. NEW ORDER RECEIVED TO D/C INFUSION AFTER TODAY'S DOSE. TODAY'S INFUSION DONE AND TOLERATED WELL. PICC LINE REMOVED AND NOTED TO BE 50CM TOTAL. TOLERATED WELL. DISCHARGE INSTRUCTION REVIEWED. DENIES QUESTIONS OR NEEDS AT DISCHARGE.
--- NOTE | 2017-07-22 07:41 | CON ---
[address] [address] CONSULTATION Name: ANGEL LEE JR Room: [facility]#: [id number] Admission: 07/19/17 Attend Phys: Casimiro Cuadra MD Discharge: Date of : 87 Report #: [id number] THIS REPORT FOR: //name// CC: FAM physician/PCP Casimiro Cuadra DATE OF SERVICE: 07/19/2017 ATTENDING PHYSICIAN: Dr. Ford Ramirez The patient returns today in followup of chronic osteomyelitis involving his left foot. He has generally been doing well. He does have some degree of discomfort. He states he has been walking on it more and notes some swelling. He has not been systemically ill in terms of fever. Generally, his blood sugars have been somewhat erratic. Again, he is waiting on insurance to obtain necessary testing materials. He has completed roughly 6 weeks of parenteral therapy. Review of labs showed a sed rate to be in the normal range of 16. Chronic osteomyelitis. At this point, I think it is reasonable to discontinue the parenteral therapy ____ receiving. He will continue on the trimethoprim and sulfamethoxazole for additional 2 weeks. We will check labs. He is to continue following with Dr. Ly. He is hesitant to drive out to see me in the office. We will coordinate through Dr. yL's office. Continue wound care as prescribed by Dr. Ly. <ELECTRONICALLY SIGNED> By: Casimiro Cuadra MD 07/22/17 0741 1313 [id number] Cuadra MD /ninoska
== END ==
LOC: M.INFUS 05:42
DX: E11.621 Type 2 diabetes mellitus with foot ulcer (principal); L97.519 Non-pressure chronic ulcer of other part of right foot with unspecified severity; L97.529 Non-pressure chronic ulcer of other part of left foot with unspecified severity

== ENCOUNTER → 2017-10-23 | Outpatient (CLI) | payer MEDICAID ==
--- NOTE | 2017-10-23 14:41 | NUR ---
ARRIVED PER WHEELCHAIR FROM X-RAY. HERE FOR EVAL OF NON WORKING PICC. X-RAY REPORT REVIEWED AND TIP OF PICC REMAINES IN GOOD POSITION AND OK FOR USE. UNABLE TO FLUSH PICC AND NO BLOOD RETURN WITH ASPERATION. PICC DRESSING REMOVED. PICC LINE NOTED TO BE FOLDED IN HALF CAUSING OCCLUSION JUST ABOVE INSERTION SITE. LINE STRAIGHTENED AND NOTED TO BE APROX 8CM EXTERNAL. AREA CLEANED AND NEW DRESSING APPLIED INCLUSING STATLOCK AND BIOPATCH. PER HOSPITAL PROTOCOL PICC NOW FLUSHING WITH EASE AND HAS GOOD BRISK BLOOD RETURN WITH ASPERATION. DENIES FURTHER NEEDS. ESCORTED TO WOUND CARE BY VOLUNTEER.
== END ==
LOC: M.INFUS 05:40 → M.RAD 12:30
DX: L03.115 Cellulitis of right lower limb (principal)

== ENCOUNTER → 2017-10-23 | Outpatient (CLI) | payer MEDICAID ==
--- NOTE | 2017-10-24 11:46 | CON ---
[address] [address] CONSULTATION Name: ANGEL LEE JR Room: [facility].#: [id number] Admission: 10/23/17 Attend Phys: Ford Ly DPM Discharge: Date of : 87 Report #: [id number] THIS REPORT FOR: //name// CC: Ford SINGH physician/PCP DATE OF SERVICE: 10/23/2017 He is seen in [facility]. ATTENDING PHYSICIAN: Ford Ly DPM. HISTORY OF PRESENT ILLNESS: He is here for deep seated infection, post-surgical debridements including some hard tissue involving the medial aspect of his right foot. Chart reviewed. The patient returns today in followup, having completed roughly 2 weeks of parenteral therapy utilizing vancomycin. He has been doing satisfactorily. He did have an issue with his PICC line, and he missed a couple of doses. This has been resolved. Denies significant systemic illness. He has not had fevers. Appetite has been good. Blood sugars have been somewhat variable, although he attributes that to difficulty in getting his medicines. On examination, it seemed post-debridement, mostly granulated tissue at the base of the wound. Apparently, Dr. Ly removed the sesamoid bone and sent it for pathology. There is adequate bleeding. ASSESSMENT AND PLAN: Right foot deep infection in the setting of diabetes mellitus. At this point, I think we will extend the vancomycin. We do not have any evidence of a deep infection previously, but we will await the results. The pathology from the sesamoid continues to optimize his nutritional status, control his blood sugars. He is utilizing a wound care per Dr. Ly. <ELECTRONICALLY SIGNED> By: Casimiro Cuadra MD 10/24/17 1146 0746 [id number] Cuadra MD /nt
== END ==
LOC: M.WC 04:09
DX: E11.621 Type 2 diabetes mellitus with foot ulcer (principal); L97.511 Non-pressure chronic ulcer of other part of right foot limited to breakdown of skin; L89.893 Pressure ulcer of other site, stage 3; E11.40 Type 2 diabetes mellitus with diabetic neuropathy, unspecified; F17.200 Nicotine dependence, unspecified, uncomplicated; E66.01 Morbid (severe) obesity due to excess calories; Z68.42 Body mass index [BMI] 45.0-49.9, adult; Z89.421 Acquired absence of other right toe(s)

== ENCOUNTER → 2017-10-30 | Outpatient (CLI) | payer MEDICAID ==
--- NOTE | 2017-10-31 11:51 | CON ---
[address] [address] CONSULTATION Name: ANGEL LEE JR Room: [facility].#: [id number] Admission: 10/30/17 Attend Phys: Ford Ly DPM Discharge: Date of : 87 Report #: [id number] THIS REPORT FOR: //name// CC: Ford Ly [facility] physician/PCP ATTENDING PHYSICIAN: Ford Ly DPM HISTORY OF PRESENT ILLNESS: He is seen in the wound care center at [place] for followup right foot deep infection post-debridement with amputation of great toe. The patient returns today in followup having completed a little over 3 weeks of parenteral therapy due to oxacillin-resistant Staph aureus necrotizing infection. Generally, he has been doing fairly well. His blood sugars have been moderately under control and certainly better. Denies significant amount of pain or discomfort. On examination, the wound appears to be granulating. There is overall less undermining. There is small amount of exposed cartilage associated with the metatarsal head. We reviewed the labs. Sed rate is down to the 30s, last week was in the 60s. Otherwise, the lab looks unremarkable. Vancomycin level was 18. ASSESSMENT AND PLAN: Deep infection involving the right foot. We will continue current approach as prescribed with the vancomycin. I will see him next week, would have completed 4 weeks of treatment, to reevaluate. Discussed with lorelei Pineda. Continue to follow weekly labs. Discussion about ongoing efforts of blood sugar control. <ELECTRONICALLY SIGNED> By: Casimiro Cuadra MD 10/31/17 1151 0701 1056Josefred Cuadra MD /nt
== END ==
LOC: M.MRI 11:30 → M.WC 13:00
DX: E11.621 Type 2 diabetes mellitus with foot ulcer (principal); L89.893 Pressure ulcer of other site, stage 3; L97.411 Non-pressure chronic ulcer of right heel and midfoot limited to breakdown of skin; E11.41 Type 2 diabetes mellitus with diabetic mononeuropathy; E66.01 Morbid (severe) obesity due to excess calories; F17.200 Nicotine dependence, unspecified, uncomplicated; Z68.42 Body mass index [BMI] 45.0-49.9, adult; Z89.421 Acquired absence of other right toe(s)

== ENCOUNTER 2017-11-03 04:31 | Emergency (ER) | payer MEDICAID ==
[~2017-11-03] VITALS: Ht 193 cm; Wt 181.4 kg
[~2017-11-03 04:31] MED LIST changes: -DAPTOMYCIN500 MG IV; -LANTUS SUBQ; -NORCO 10-325 T1 EACH PO; -PROZAC20 MG PO
[2017-11-03] MEDS ORDERED: NORCO 10-325 T1 EACH PO (04:41)
[2017-11-03 05:00] VITALS: BP 153/89
[2018-03-31] MEDS ORDERED: CLEOCIN HCL150 MG PO (10:41)
== END 2017-11-03 05:00 | disposition home or self-care (01) ==
LOC: M.ERS 04:31
DX: H43.392 Other vitreous opacities, left eye (principal); E10.9 Type 1 diabetes mellitus without complications; E66.01 Morbid (severe) obesity due to excess calories; F17.210 Nicotine dependence, cigarettes, uncomplicated; Z86.14 Personal history of Methicillin resistant Staphylococcus aureus infection; Z68.42 Body mass index [BMI] 45.0-49.9, adult

== ENCOUNTER → 2017-11-06 | Outpatient (CLI) | payer MEDICAID ==
[~2017-11-06] MED LIST changes: +DAPTOMYCIN500 MG IV; +LANTUS SUBQ; +NORCO 10-325 T1 EACH PO; +PROZAC20 MG PO
--- NOTE | 2017-11-07 11:52 | CON ---
[address] [address] CONSULTATION Name: ANGEL LEE JR Room: [facility].#: [id number] Admission: 11/06/17 Attend Phys: Ford Ly DPM Discharge: Date of : 87 Report #: [id number] THIS REPORT FOR: //name// CC: Ford Ly [facility] physician/PCP NO PCP DATE OF SERVICE: 11/06/2017 INFECTIOUS DISEASE CONSULTATION ATTENDING PHYSICIAN: Ford Ly DPM HISTORY OF PRESENT ILLNESS: He is here for followup at the wound care center for right foot deep infection with great toe amputation. He has generally been doing fairly well. He noted increasing pain over the last few days. On evaluation, the wound appears to be improving, although there was some exposed hard tissue felt to be bone that Dr. Ly excised. He has completed roughly 5 weeks of parenteral therapy. I reviewed his labs, noted vancomycin level was less than 5. He stated there was a problem with the dosing about the time, the level he assures me he is taking it as prescribed. Otherwise, the labs looked fairly unremarkable. The sed rate is down to the low 30s. ASSESSMENT AND PLAN: Deep foot infection. We will continue the parenteral therapy as prescribed. Try to repeat the vancomycin level in the next 48 hours. Adjust dosing as required. Continue wound care as prescribed by Dr. Ly. We will see him back in 1 week. We will follow with weekly labs. <ELECTRONICALLY SIGNED> By: Casimiro Cuadra MD 11/07/17 1152 1654 [id number] Cuadra MD /nt
--- NOTE | 2017-11-14 11:33 | CON ---
[address] [address] CONSULTATION Name: ANGEL LEE JR Room: [facility].#: [id number] Admission: 11/06/17 Attend Phys: Ford Ly DPM Discharge: Date of : 87 Report #: [id number] THIS REPORT FOR: //name// CC: Ford Ly [facility] physician/PCP NO PCP DATE OF SERVICE: 11/13/2017 INFECTIOUS DISEASE CONSULTATION: ATTENDING PHYSICIAN: Ford Ly DPM. REASON FOR EVALUATION: Right foot deep infection and confirmed osteomyelitis involving the sesamoid status post fifth metatarsal resection toe amputation. Generally, he has been doing fairly well. He has completed roughly 6 weeks of parenteral therapy, does have still exposed cartilage related to the metatarsal head, I believe, on the 4th. Overall degree of inflammation is less. He denies significant pain, no recent fevers. Appetite has been generally good. Blood sugars have been variable. Review of labs showed sed rate to be down to 25 from 34 last week. He is on vancomycin currently b.i.d. dosing. Chronic osteomyelitis. We will continue parenteral antibiotics at least 2 additional weeks. We will follow the labs and be favorable to have the soft tissue covering any hard tissue prior to discontinuation. He is overall improving, although he remains tenuous in the sense his diabetes is not well controlled. Certainly, he is at risk for complications. <ELECTRONICALLY SIGNED> By: Casimiro Cuadra MD 11/14/17 1133 1431 [id number] Cuadra MD /ninoska
--- NOTE | 2018-01-29 15:08 | PATH ---
[address] [address] PATHOLOGY RPT PROCEDURE Name: ANGEL LEE JR Room: [facility].#: [id number] Admission: 11/06/17 Date of : 87 Discharge: Report #: [id number] Path Case #: [id number] [facility] Accession Number: [id number] . 01 Material submitted: . RIGHT FOOT BONE BIOPSY . 01 Clinical history: . Right foot wound . 02 Diagnosis: Bone, right foot, biopsy: - Marked acute and chronic inflammation associated with destruction of bone, findings consistent with acute osteomyelitis. (IUV:pit; 11/08/2017) QTP/11/08/2017 . 02 Electronically signed: . Katy Arreola MD, Pathologist NPI- [id number] . 01 Gross description: . Received in formalin labeled "Angel Lee Jr., bone biopsy, right foot," is a segment of partially granular, yellow-wright bone with scant attached wright-brown soft tissue measuring 1.5 x 1.2 x 0.9 cm in greatest dimensions. The specimen is inked, bisected and submitted entirely in cassette A1, following decalcification. (DAC; 11/07/2017) XDC/XDC . 02 Pathologist provided ICD-10: M86.171 . 02 CPT . 011354, [id number] Performed at: [address], [place] [id number] MD René Arcos MD Phone: [phone] Performed at: [address] [id number] MD Katy Arreola MD Phone: [phone]
== END ==
LOC: M.WC 03:37
DX: E11.621 Type 2 diabetes mellitus with foot ulcer (principal); L97.411 Non-pressure chronic ulcer of right heel and midfoot limited to breakdown of skin; L89.893 Pressure ulcer of other site, stage 3; E11.40 Type 2 diabetes mellitus with diabetic neuropathy, unspecified; E66.01 Morbid (severe) obesity due to excess calories; F17.200 Nicotine dependence, unspecified, uncomplicated; Z68.42 Body mass index [BMI] 45.0-49.9, adult; Z89.421 Acquired absence of other right toe(s)

== ENCOUNTER → 2017-11-13 | Outpatient (CLI) | payer MEDICAID | LOC: M.WC 00:43 | DX: E11.621 Type 2 diabetes mellitus with foot ulcer (principal); L97.411 Non-pressure chronic ulcer of right heel and midfoot limited to breakdown of skin; E11.40 Type 2 diabetes mellitus with diabetic neuropathy, unspecified; E66.01 Morbid (severe) obesity due to excess calories; F17.200 Nicotine dependence, unspecified, uncomplicated; Z89.421 Acquired absence of other right toe(s); Z68.42 Body mass index [BMI] 45.0-49.9, adult ==

== ENCOUNTER → 2017-11-19 | Outpatient (CLI) | payer MEDICAID | LOC: M.MRI 13:10 | DX: M86.9 Osteomyelitis, unspecified (principal); M00.871 Arthritis due to other bacteria, right ankle and foot; E11.621 Type 2 diabetes mellitus with foot ulcer ==

== ENCOUNTER → 2017-11-20 | Outpatient (CLI) | payer MEDICAID ==
--- NOTE | 2017-11-22 06:43 | CON ---
[address] [address] CONSULTATION Name: ANGEL LEE JR Room: [facility].#: [id number] Admission: 11/20/17 Attend Phys: Ford Ly DPM Discharge: Date of : 87 Report #: [id number] THIS REPORT FOR: //name// CC: Ford Ly [facility] physician/PCP NO PCP DATE OF SERVICE: 11/20/2017 ATTENDING PHYSICIAN: Ford Ly DPM. HISTORY OF PRESENT ILLNESS: The patient returns in followup for ongoing treatment for deep seated infection involving the right foot. The medial aspect of his foot had an abscess with a wide operative debridement and isolation of oxacillin-resistant Staph aureus. He has been on an extended period of antibiotics due to concerns about the wound. He had shown evidence of improvement and indeed there is some degree of increased granulation tissue. There is, however, exposed bone that is notable on last visit. They did remove the medial sesamoid, which had evidence of chronic osteomyelitis. Followup MRI suggested the proximal digit as well as a distal metatarsal with changes that could be consistent with chronic osteomyelitis as well. Review of the labs, he had a dramatic increase in his sed rate from the 20s to 95 over the course of the week. As noted above, he has been on roughly 7 weeks of parenteral therapy. It is notable that in spite of being on 4 grams a day, his levels have been somewhat low. ASSESSMENT AND PLAN: Chronic osteomyelitis. Discussed with the patient as well as Dr. Ly, we will add rifampin. Did have a culture including a biopsy of the bone to see if indeed this is the same organism and be able to make adjustments as necessary. In addition to rifampin, did write a prescription for trimethoprim sulfamethoxazole, which he is to hold until we get results. He has 2 more doses of vancomycin. We will likely make a switch, consider linezolid as well. We will see him in 1 week. <ELECTRONICALLY SIGNED> By: Casimiro Cuadra MD 11/22/17 0643 0850 1948Jomodesto Cuadra MD /nt
== END ==
LOC: M.WC 04:10
DX: E11.621 Type 2 diabetes mellitus with foot ulcer (principal); L97.511 Non-pressure chronic ulcer of other part of right foot limited to breakdown of skin; L89.893 Pressure ulcer of other site, stage 3; E11.40 Type 2 diabetes mellitus with diabetic neuropathy, unspecified; E66.01 Morbid (severe) obesity due to excess calories; F17.210 Nicotine dependence, cigarettes, uncomplicated; Z89.421 Acquired absence of other right toe(s)

== ENCOUNTER → 2017-11-27 | Outpatient (CLI) | payer MEDICAID ==
--- NOTE | 2017-11-28 11:07 | CON ---
[address] [address] CONSULTATION Name: ANGEL LEE JR Room: [facility].#: [id number] Admission: 11/27/17 Attend Phys: Ford Ly DPM Discharge: Date of : 87 Report #: [id number] THIS REPORT FOR: //name// CC: Ford Ly [facility] physician/PCP FAM unknown DATE OF SERVICE: 11/27/2017 ATTENDING PHYSICIAN: Ford Ly DPM. REASON FOR EVALUATION: Ongoing issues with right foot deep infection. does have a sesamoid osteoectomy. Generally, he is overall better. In the previous week, he had marked inflammatory changes noted. Last week, a deep culture was collected, growth of Escherichia coli, which is different from his previous culture, MRSA. Antibiotics were switched. He is now on parenteral ceftriaxone. Wound appears to be quite a bit less inflamed at this point. Denies any systemic illness. Deep infection confirmed to have some osteomyelitis. We will continue ceftriaxone for now. We will see him back on a weekly basis and the short term wound care as per Dr. Ly. <ELECTRONICALLY SIGNED> By: Casimiro Cuadra MD 11/28/17 1107 0758 0934Jomodesto Cuadra MD /nt
== END ==
LOC: M.WC 05:09
DX: E11.621 Type 2 diabetes mellitus with foot ulcer (principal); L97.411 Non-pressure chronic ulcer of right heel and midfoot limited to breakdown of skin; E66.01 Morbid (severe) obesity due to excess calories; F17.200 Nicotine dependence, unspecified, uncomplicated; Z89.421 Acquired absence of other right toe(s); Z68.42 Body mass index [BMI] 45.0-49.9, adult

== ENCOUNTER → 2017-12-11 | Outpatient (CLI) | payer MEDICAID ==
--- NOTE | 2017-12-12 12:30 | CON ---
[address] [address] CONSULTATION Name: ANGEL LEE JR Room: [facility].#: [id number] Admission: 12/11/17 Attend Phys: Ford Ly DPM Discharge: Date of : 87 Report #: [id number] THIS REPORT FOR: //name// CC: Ford Ly FAM physician/PCP FAM unknown DATE OF SERVICE: 12/11/2017 ATTENDING PHYSICIAN: Dr. Ford Ly. HISTORY OF PRESENT ILLNESS: Here for followup of deep infection involving his right foot, probable osteomyelitis involving the sesamoid and ongoing treatment with parenteral therapy for a number of weeks. His most recent course has been I believe 5 weeks. Generally, he has been doing fairly well. His blood sugars have been somewhat elevated, which he attributes in part to a tooth infection. Denies significant amount of discomfort associated with the foot, has not had fevers. Appetite has been quite good. Evaluation in the sed rate, it had been 95 spiked, is now down to the 30s. This is post-debridement from Dr. Ly, has good granulation tissue. There is no exposed bone that I can appreciate. Overall degree of inflammation is considerably improved. IMPRESSION: Deep foot infection, osteomyelitis. PLAN: We will continue current therapy as prescribed with the ceftriaxone. It is notable that previous culture had MRSA, had I believe Enterobacter. We will see him in one week. <ELECTRONICALLY SIGNED> By: Casimiro Cuadra MD 12/12/17 1230 0812 0914Jomodesto Cuadra MD /ninoska
== END ==
LOC: M.WC 04:40
DX: E11.621 Type 2 diabetes mellitus with foot ulcer (principal); L97.511 Non-pressure chronic ulcer of other part of right foot limited to breakdown of skin; L89.893 Pressure ulcer of other site, stage 3; L97.411 Non-pressure chronic ulcer of right heel and midfoot limited to breakdown of skin; E11.40 Type 2 diabetes mellitus with diabetic neuropathy, unspecified; E66.01 Morbid (severe) obesity due to excess calories; F17.210 Nicotine dependence, cigarettes, uncomplicated; Z89.421 Acquired absence of other right toe(s)

== ENCOUNTER → 2017-12-18 | Outpatient (CLI) | payer MEDICAID ==
--- NOTE | 2017-12-19 12:27 | CON ---
[address] [address] CONSULTATION Name: ANGEL LEE JR Room: [facility].#: [id number] Admission: 12/18/17 Attend Phys: Ford Ly DPM Discharge: Date of : 87 Report #: [id number] THIS REPORT FOR: //name// CC: Ford Ly [facility] physician/PCP NO PCP DATE OF SERVICE: 12/18/2017 INFECTIOUS DISEASE CONSULTATION FOLLOWUP ATTENDING PHYSICIAN: Ford Ly DPM HISTORY OF PRESENT ILLNESS: Here for followup of deep infection involving the right foot. He is post-ray amputation of the great toe. He has had documented osteomyelitis involving the medial sesamoid. He has completed roughly 9 weeks of therapy. This has been in combination, had a midcourse worsening and was found to have a different organism on culture. He has been on ceftriaxone for the last 3-4 weeks. Generally, he has been doing well. He denies any systemic illness. He does have ongoing issues with dental disease, probable infection. He does have blood sugars that have been still elevated in the 200-300 range. REVIEW OF LABORATORY: His sed rate is 33. We will continue the Rocephin, had an additional week delivered, instructed him not to extend that until he is seen in followup in one week. We will check weekly labs as well. He was encouraged to follow up with the dental evaluation and possible intervention. <ELECTRONICALLY SIGNED> By: Casimiro Cuadra MD 12/19/17 1227 0848 0912Joseph Carrie Cuadra MD /nt
== END ==
LOC: M.WC 05:12
DX: E11.621 Type 2 diabetes mellitus with foot ulcer (principal); L97.411 Non-pressure chronic ulcer of right heel and midfoot limited to breakdown of skin; L89.893 Pressure ulcer of other site, stage 3; E11.41 Type 2 diabetes mellitus with diabetic mononeuropathy; E66.01 Morbid (severe) obesity due to excess calories; F17.200 Nicotine dependence, unspecified, uncomplicated; Z89.421 Acquired absence of other right toe(s); Z68.42 Body mass index [BMI] 45.0-49.9, adult

== ENCOUNTER → 2017-12-25 | Outpatient (CLI) | payer MEDICAID ==
--- NOTE | 2017-12-26 13:07 | CON ---
[address] [address] CONSULTATION Name: ANGEL LEE JR Room: [facility].#: [id number] Admission: 12/25/17 Attend Phys: Ford Ly DPM Discharge: Date of : 87 Report #: [id number] THIS REPORT FOR: //name// CC: Ford Ly [facility] physician/PCP DATE OF SERVICE: 12/25/2017 ATTENDING PHYSICIAN: Ford Ly DPM HISTORY OF PRESENT ILLNESS: Here for followup deep right foot infection. He is post-ray amputation. He did have removal of medial sesamoid as well, which confirmed to have osteo, otherwise no confirmed bony involvement. He has had couple of different episodes. Initial culture grew out oxacillin-resistant Staph aureus. Follow up about 5 weeks ago had isolation in Escherichia coli, has been on therapy with ceftriaxone most recently. Generally, he has been doing fairly well. On examination, there is increased granulation tissue. There is still some exposed bone per Dr. Ly at the level of the first MTP joint. There is really a minimal degree of surface inflammation at this point. On questioning, he denies systemic illness. He is still having difficulty with his teeth. It is felt there is likely infection associated with that. Reviewed laboratories. Sed rate is still in the 30s, may be attributed to multifactorial etiology. Blood sugars have been elevated. We will continue the current prescription for the ceftriaxone, transition to oral antibiotics utilizing ciprofloxacin. We will maintain a line until he is seen next week by Dr. Ly. If he continues to do well, we can remove that. I will see him in 2 weeks. <ELECTRONICALLY SIGNED> By: Casimiro Cuadra MD 12/26/17 1307 0734 0933Jomodesto Cuadra MD /nt
== END ==
LOC: M.WC 04:48
DX: E11.621 Type 2 diabetes mellitus with foot ulcer (principal); L97.511 Non-pressure chronic ulcer of other part of right foot limited to breakdown of skin; L97.411 Non-pressure chronic ulcer of right heel and midfoot limited to breakdown of skin; L89.893 Pressure ulcer of other site, stage 3; E11.41 Type 2 diabetes mellitus with diabetic mononeuropathy; E66.01 Morbid (severe) obesity due to excess calories; L84 Corns and callosities; F17.200 Nicotine dependence, unspecified, uncomplicated; Z89.421 Acquired absence of other right toe(s); Z68.42 Body mass index [BMI] 45.0-49.9, adult

== ENCOUNTER → 2018-01-01 | Outpatient (CLI) | payer MEDICAID ==
--- NOTE | 2018-01-09 16:33 | CON ---
[address] [address] CONSULTATION Name: ANGEL LEE JR Room: [facility].#: [id number] Admission: 01/01/18 Attend Phys: Ford Ly DPM Discharge: Date of : 87 Report #: [id number] THIS REPORT FOR: //name// CC: Ford SINGH unknown DATE OF SERVICE: 01/08/2018 ATTENDING PHYSICIAN: Ford Ly DPM The patient returns today in followup for ongoing issues with chronic ulcer. He had confirmed confirm osteomyelitis. He is status post ray amputation of the right great toe. He has got an ongoing wound care. He has been on extended period of IV and then transition to oral antibiotics including ciprofloxacin over the course of the last 2 weeks. He is quite frustrated and states he is ready to about give up. Blood sugars have been only moderately controlled. He generally does not have significant amount of pain. It is not clear that he has had systemic illness. On evaluation, he has healthy appearing granulation tissue. There is some mild degree of surface inflammation noted. On probing, it does appear to extend down to what I perceived to be the joint. Chronic ulcer at the site of previous great toe ray amputation. We will obtain deep cultures at this point, continue ciprofloxacin for now and adjust as needed. He did have discussed with Dr. Ly, there is thought that he may benefit from transmetatarsal amputation, which he is quite discouraged about. Continue offloading and wound care as prescribed by Dr. Ly. <ELECTRONICALLY SIGNED> By: Casimiro Cuadra MD 01/09/18 1633 0832 1618Jomodesto Cuadra MD /nt
== END ==
LOC: M.WC 03:01
DX: T81.4XXD Infection following a procedure, subsequent encounter (principal); E11.621 Type 2 diabetes mellitus with foot ulcer; L89.893 Pressure ulcer of other site, stage 3; L97.511 Non-pressure chronic ulcer of other part of right foot limited to breakdown of skin; L97.411 Non-pressure chronic ulcer of right heel and midfoot limited to breakdown of skin; E11.41 Type 2 diabetes mellitus with diabetic mononeuropathy; E66.01 Morbid (severe) obesity due to excess calories; F17.200 Nicotine dependence, unspecified, uncomplicated; F41.9 Anxiety disorder, unspecified; Z68.42 Body mass index [BMI] 45.0-49.9, adult; Z89.421 Acquired absence of other right toe(s); Y83.8 Other surgical procedures as the cause of abnormal reaction of the patient, or of later complication, without mention of misadventure at the time of the procedure

== ENCOUNTER → 2018-01-08 | Outpatient (CLI) | payer MEDICAID | LOC: M.WC 04:10 | DX: E11.621 Type 2 diabetes mellitus with foot ulcer (principal); L97.511 Non-pressure chronic ulcer of other part of right foot limited to breakdown of skin; L97.411 Non-pressure chronic ulcer of right heel and midfoot limited to breakdown of skin; L89.893 Pressure ulcer of other site, stage 3; E11.41 Type 2 diabetes mellitus with diabetic mononeuropathy; E11.69 Type 2 diabetes mellitus with other specified complication; M86.8X7 Other osteomyelitis, ankle and foot; L84 Corns and callosities; M19.90 Unspecified osteoarthritis, unspecified site; E66.01 Morbid (severe) obesity due to excess calories; F41.9 Anxiety disorder, unspecified; F32.9 Major depressive disorder, single episode, unspecified; F17.200 Nicotine dependence, unspecified, uncomplicated; Z89.421 Acquired absence of other right toe(s); Z68.42 Body mass index [BMI] 45.0-49.9, adult ==

== ENCOUNTER → 2018-01-22 | Outpatient (CLI) | payer MEDICAID ==
--- NOTE | 2018-01-23 13:21 | CON ---
[address] [address] CONSULTATION Name: ANGEL LEE JR Room: [facility].#: [id number] Admission: 01/22/18 Attend Phys: Ford Ly DPM Discharge: Date of : 87 Report #: [id number] THIS REPORT FOR: //name// CC: Ford SINGH unknown DATE OF SERVICE: 01/22/2018 ATTENDING PHYSICIAN: Dr. Ford Ramirez. HISTORY OF PRESENT ILLNESS: Here for chronic ulceration involving the right foot in the setting of a deep infection including osteomyelitis involving the sesamoid. He had a fairly protracted course. He generally feels somewhat better than when seen 2 weeks ago. The overall appearance of the foot has improved with decreased inflammation noted along the entirety of the dorsal foot. On inspection, the wound does have some depth, it apparently extends down to the remains of the metatarsal joint. His blood sugars have been somewhat variable, although they have been elevated more of late. I reviewed the culture results, has recurrent MRSA. It is notable he has been on gram-negative coverage for previous culture. ASSESSMENT: Deep infection, right foot. We will restart therapy with Bactrim, add rifampin as combination. At this point, it is uncertain whether there is hard tissue involvement with the infection. We will see him back on a weekly basis. Did inform him about likelihood of urine, etc. would turn orange. We will follow weekly labs including sed rate. <ELECTRONICALLY SIGNED> By: Casimiro Cuadra MD 01/23/18 1321 0917 1319Josefred Cuadra MD /nt
== END ==
LOC: M.WC 01-15 03:24
DX: E11.621 Type 2 diabetes mellitus with foot ulcer (principal); L97.416 Non-pressure chronic ulcer of right heel and midfoot with bone involvement without evidence of necrosis; L89.893 Pressure ulcer of other site, stage 3; E11.69 Type 2 diabetes mellitus with other specified complication; M86.8X7 Other osteomyelitis, ankle and foot; E11.41 Type 2 diabetes mellitus with diabetic mononeuropathy; E66.01 Morbid (severe) obesity due to excess calories; F17.200 Nicotine dependence, unspecified, uncomplicated; F31.9 Bipolar disorder, unspecified; F41.9 Anxiety disorder, unspecified; Z89.421 Acquired absence of other right toe(s); Z68.42 Body mass index [BMI] 45.0-49.9, adult

== ENCOUNTER → 2018-01-29 | Outpatient (CLI) | payer MEDICAID ==
--- NOTE | 2018-01-30 15:01 | CON ---
[address] [address] CONSULTATION Name: ANGEL LEE JR Room: [facility].#: [id number] Admission: 01/29/18 Attend Phys: Ford Ly DPM Discharge: Date of : 87 Report #: [id number] THIS REPORT FOR: //name// CC: Ford Ly FAM physician/PCP DATE OF SERVICE: 01/29/2018 ATTENDING PHYSICIAN: Dr. Ford Ramirez. HISTORY OF PRESENT ILLNESS: He is seen in [facility] for follow up right foot deep infection with associated sesamoid chronic osteomyelitis. He has got a longstanding wound involving the medial aspect. He actually has done a little bit better over the course of the last 2 weeks. He does describe some nausea on several occasions, which he is attributing to the rifampin. Overall, the wound does appear better, it has decreased reasonable granulation tissue. There is a clear extension down to the metatarsophalangeal joint, although the overall exposed surface of the cartilage has decreased per Dr. Ly. The degree of inflammation is at this point mild. Denies any systemic illness. He has had some blood sugar elevations, although he attributes that to a period of time where he was unable to get insulin and he was off it for 5 days. ASSESSMENT AND PLAN: Deep foot infection. At this point, we would extend the current approach, did have a discussion about discontinuing rifampin, supposed to get at least 2 weeks, which he will try to extend. If not, we will continue his monotherapy with trimethoprim and sulfamethoxazole. He is going to have weekly labs while on treatment. We will see him back in 1 week. <ELECTRONICALLY SIGNED> By: Casimiro Cuadra MD 01/30/18 1501 0903 [id number] Cuadra MD /nt
== END ==
LOC: M.WC 04:36
DX: E11.621 Type 2 diabetes mellitus with foot ulcer (principal); L97.511 Non-pressure chronic ulcer of other part of right foot limited to breakdown of skin; L97.411 Non-pressure chronic ulcer of right heel and midfoot limited to breakdown of skin; L89.893 Pressure ulcer of other site, stage 3; E11.41 Type 2 diabetes mellitus with diabetic mononeuropathy; L84 Corns and callosities; E66.9 Obesity, unspecified; F17.200 Nicotine dependence, unspecified, uncomplicated; F41.9 Anxiety disorder, unspecified; Z68.42 Body mass index [BMI] 45.0-49.9, adult

== ENCOUNTER → 2018-02-05 | Outpatient (CLI) | payer MEDICAID ==
--- NOTE | 2018-02-07 07:56 | CON ---
[address] [address] CONSULTATION Name: ANGEL LEE JR Room: [facility].#: [id number] Admission: 02/05/18 Attend Phys: Ford Ly DPM Discharge: Date of : 86 Report #: [id number] THIS REPORT FOR: //name// CC: Ford Ly FAM physician/PCP FAM unknown DATE OF SERVICE: 02/05/2018 ATTENDING PHYSICIAN: Ford Ly MD HISTORY OF PRESENT ILLNESS: The patient returns today in followup for chronic ulceration involving the lateral aspect of his right foot, confirmed osteomyelitis involving the sesamoid deep infection requiring wide operative debridement several weeks ago. This has been complicated by persistent tract down to the joint in spite of overall improvement in the wound. On examination, the appearance is one of decreased inflammation overall. The dimensions, length and width are somewhat smaller. He does still probe through a rent in the wound, although Dr. Ly at this point does not visually see the joint where he had previously. He continues to take trimethoprim sulfamethoxazole, previously had added rifampin, which he did not tolerate due to GI related adverse drug effects. ASSESSMENT AND PLAN: Chronic ulcer involving the right foot. We will continue Bactrim at least additional couple of weeks. He is encouraged to get a refill. We will see him back on a weekly basis. Wound care including immobilization of the site to try to promote the healing, try to optimize nutritional status. He was encouraged again to have blood sugar controlled. <ELECTRONICALLY SIGNED> By: Casimiro Cuadra MD 02/07/18 0756 1017 2015Jomodesto Cuadra MD /nt
== END ==
LOC: M.WC 04:52
DX: E11.621 Type 2 diabetes mellitus with foot ulcer (principal); L97.416 Non-pressure chronic ulcer of right heel and midfoot with bone involvement without evidence of necrosis; E11.42 Type 2 diabetes mellitus with diabetic polyneuropathy; E11.69 Type 2 diabetes mellitus with other specified complication; M86.8X7 Other osteomyelitis, ankle and foot; L84 Corns and callosities; E66.01 Morbid (severe) obesity due to excess calories; F17.200 Nicotine dependence, unspecified, uncomplicated; F32.9 Major depressive disorder, single episode, unspecified; F41.9 Anxiety disorder, unspecified; Z68.42 Body mass index [BMI] 45.0-49.9, adult; Z89.421 Acquired absence of other right toe(s)

== ENCOUNTER → 2018-02-12 | Outpatient (CLI) | payer MEDICAID ==
--- NOTE | 2018-02-13 11:07 | CON ---
[address] [address] CONSULTATION Name: ANGEL LEE JR Room: [facility].#: [id number] Admission: 02/12/18 Attend Phys: Ford Ly DPM Discharge: Date of : 86 Report #: [id number] THIS REPORT FOR: //name// CC: Ford Ly [facility] physician/PCP DATE OF SERVICE: 02/12/2018 Infectious Disease Consultation ATTENDING PHYSICIAN: Ford Ly DPM REASON FOR CONSULTATION: Right medial chronic foot ulcer in the setting of deep seated infection and osteomyelitis involving the sesamoid. HISTORY OF PRESENT ILLNESS: He is currently undergoing wound care with debridement on a weekly basis. He has been on extended period of antibiotics based on previous cultures. This has been altered and most recently he is on trimethoprim and sulfamethoxazole. Review of labs appeared to be fairly unremarkable. He is not anemic. Surprisingly, does have an elevated sed rate in the 40s; however, he has got other issues including likely tooth infection, also has had more recent diarrhea, perhaps attributable to the antibiotic. Denies any blood or mucus. PHYSICAL EXAMINATION: Inspection of the site shows increasing granulation tissue. Overall, the appearance is improved. He does have rent in the base of the wound. It reportedly extends down to the joint, although it is no longer visualized. There is no odor, no purulent material and this appeared to be overly friable. ASSESSMENT AND PLAN: Deep infection. At this point, we would extend the antibiotics. We will see him on a weekly basis to decide ultimately when to discontinue, again check some weekly labs. He was encouraged to try to seek treatment for his tooth infection. In addition to the diarrhea, if it would worsen, we would consider studies of the stool including Clostridium difficile toxin assay. At this point, he was instructed to take little antidiarrheal such as Imodium. We will see him in 1 week. <ELECTRONICALLY SIGNED> By: Casimiro Cuadra MD 02/13/18 1107 0640 [id number] Cuadra MD /nt
== END ==
LOC: M.WC 03:06
DX: E11.621 Type 2 diabetes mellitus with foot ulcer (principal); L97.516 Non-pressure chronic ulcer of other part of right foot with bone involvement without evidence of necrosis; L97.411 Non-pressure chronic ulcer of right heel and midfoot limited to breakdown of skin; L89.893 Pressure ulcer of other site, stage 3; L03.115 Cellulitis of right lower limb; L84 Corns and callosities; E11.42 Type 2 diabetes mellitus with diabetic polyneuropathy; E66.01 Morbid (severe) obesity due to excess calories; F31.9 Bipolar disorder, unspecified; F17.200 Nicotine dependence, unspecified, uncomplicated; F41.9 Anxiety disorder, unspecified; Z68.42 Body mass index [BMI] 45.0-49.9, adult; Z89.421 Acquired absence of other right toe(s)

== ENCOUNTER → 2018-02-26 | Outpatient (CLI) | payer MEDICAID ==
--- NOTE | 2018-02-27 12:51 | CON ---
[address] [address] CONSULTATION Name: ANGEL LEE JR Room: [facility].#: [id number] Admission: 02/26/18 Attend Phys: Ford Ly DPM Discharge: Date of : 86 Report #: [id number] THIS REPORT FOR: //name// CC: Ford Ly FAM physician/PCP FAM unknown DATE OF SERVICE: 02/26/2018 ATTENDING PHYSICIAN: Ford Ly DPM HISTORY OF PRESENT ILLNESS: Here for right foot chronic wound at the site of previous first ray amputation metatarsectomy; has had chronic issues with wound that tracks down to the MTP joint. Generally he has been feeling okay. He has no particular issues with his foot other than what has been ongoing. He has not been systemically ill, although he does admit to some loose stools, which he attributes to the antibiotics. He is currently on trimethoprim/sulfamethoxazole DS b.i.d. dosing schedule. A review of labs was unremarkable for elevated sed rate of 33. The other issue is in terms of chronic dental infection, which he has been unable to correct thus far. He continues to work on that. IMPRESSION: Chronic wound associated with his right foot. PLAN: We will continue the trimethoprim/sulfamethoxazole, get weekly labs. Again, at this point there have been discussions about possible transmetatarsal amputation, which he has been resisting. Dr. Ly is willing to continue current approach and see how he does clinically. He does need to correct the issue with his foot where I think that is part not allowing the wound to heal. We will see him generally on a weekly basis again to follow antibiotic treatment protocol. I did discuss with him if not improved of course in the next week, we will probably try to reculture. <ELECTRONICALLY SIGNED> By: Casimiro Cuadra MD 02/27/18 1251 0901 [id number] Cuadra MD /nt
== END ==
LOC: M.WC 13:30
DX: E11.621 Type 2 diabetes mellitus with foot ulcer (principal); L97.516 Non-pressure chronic ulcer of other part of right foot with bone involvement without evidence of necrosis; L97.412 Non-pressure chronic ulcer of right heel and midfoot with fat layer exposed; L84 Corns and callosities; E11.69 Type 2 diabetes mellitus with other specified complication; M86.68 Other chronic osteomyelitis, other site; E11.41 Type 2 diabetes mellitus with diabetic mononeuropathy; E66.01 Morbid (severe) obesity due to excess calories; M00.80 Arthritis due to other bacteria, unspecified joint; F41.9 Anxiety disorder, unspecified; F32.9 Major depressive disorder, single episode, unspecified; F17.200 Nicotine dependence, unspecified, uncomplicated; Z68.42 Body mass index [BMI] 45.0-49.9, adult

== ENCOUNTER → 2018-03-12 | Outpatient (CLI) | payer MEDICAID ==
--- NOTE | 2018-03-13 15:27 | CON ---
[address] [address] CONSULTATION Name: ANGEL LEE JR Room: [facility].#: [id number] Admission: 03/12/18 Attend Phys: Ford Ly DPM Discharge: Date of : 86 Report #: [id number] THIS REPORT FOR: //name// CC: Ford Ly FAM physician/PCP FAM unknown DATE OF SERVICE: 03/12/2018 INFECTIOUS DISEASE CONSULTATION ATTENDING PHYSICIAN: Ford Ly DPM. REASON FOR EVALUATION: Right foot chronic wound, complicated by probable osteomyelitis of the fourth metatarsal, site of previous ray amputation. HISTORY OF PRESENT ILLNESS: Chart reviewed, the patient examined. The patient returns for followup having ongoing wound care for several months. Persistent degree of inflammation noted from the site. He has had several surgeries. At this point, he is exhibiting at least moderate degree of inflammation. On questioning, he describes moderate amount of pain. His blood sugars have been variable. It is not clear if he has had any fevers. I suspect a degree of noncompliance with walking. PHYSICAL EXAMINATION: On examination, there is a persistent sinus tract that extends from the base of the wound down to the joint. ASSESSMENT AND PLAN: Chronic osteomyelitis. At this point, he is relatively stable. From clinical standpoint, he has reached decision that he is willing to proceed with transmetatarsal amputation, which I think is a reasonable approach. We will continue in the interim to treat him with systemic antibiotics. He has been on Bactrim. Recent lab was otherwise unrevealing. Interestingly, he is not anemic and sed rate is maintained in the low 30s. We will follow up with him next week. <ELECTRONICALLY SIGNED> By: Casimiro Cuadra MD 03/13/18 1527 0808 [id number] Cuadra MD /nt
== END ==
LOC: M.WC 03-05 03:59
DX: E11.621 Type 2 diabetes mellitus with foot ulcer (principal); L97.516 Non-pressure chronic ulcer of other part of right foot with bone involvement without evidence of necrosis; L97.411 Non-pressure chronic ulcer of right heel and midfoot limited to breakdown of skin; E11.41 Type 2 diabetes mellitus with diabetic mononeuropathy; E11.69 Type 2 diabetes mellitus with other specified complication; M86.671 Other chronic osteomyelitis, right ankle and foot; E66.01 Morbid (severe) obesity due to excess calories; L84 Corns and callosities; F17.200 Nicotine dependence, unspecified, uncomplicated; F41.9 Anxiety disorder, unspecified; F32.9 Major depressive disorder, single episode, unspecified; Z68.42 Body mass index [BMI] 45.0-49.9, adult; Z89.421 Acquired absence of other right toe(s)

== ENCOUNTER → 2018-03-19 | Outpatient (CLI) | payer MEDICAID ==
--- NOTE | 2018-03-21 08:23 | CON ---
[address] [address] CONSULTATION Name: ANGEL LEE JR Room: [facility].#: [id number] Admission: 03/19/18 Attend Phys: Ford Ly DPM Discharge: Date of : 86 Report #: [id number] THIS REPORT FOR: //name// CC: Ford Ly [facility] physician/PCP DATE OF SERVICE: 03/20/2018 INFECTIOUS DISEASES CONSULTATION REASON FOR EVALUATION: Ongoing treatment for suspected osteomyelitis involving his right foot of the medial aspect with chronic wound that tracks down to the metatarsophalangeal joint. HISTORY OF PRESENT ILLNESS: Chart reviewed, patient examined. Overall, he appears clinically about the same. He is quite distressed. He has had issues with his eyes. He is undergoing several procedures to I believe diabetic retinopathy. In addition to that, his foot overall feels about the same. He does have pain. He notes on exam there is some mild to moderate inflammation and has not been systemically ill in terms of fevers. ASSESSMENT AND PLAN: Chronic ulceration with suspected osteomyelitis. At this point, he has made the decision we will go ahead and proceed with transmetatarsal amputation, although it would be several days. We will continue the therapy with trimethoprim and sulfamethoxazole. Did have Dr. Ly do a culture should give us more recent data to adjust perioperative antibiotics. In addition to that, we will continue wound care, offloading, optimize his nutritional status, blood sugar control. <ELECTRONICALLY SIGNED> By: Casimiro Cuadra MD 03/21/18 0823 0908 [id number] Cuadra MD /nt
== END ==
LOC: M.WC 05:43
DX: E11.621 Type 2 diabetes mellitus with foot ulcer (principal); L97.516 Non-pressure chronic ulcer of other part of right foot with bone involvement without evidence of necrosis; L97.411 Non-pressure chronic ulcer of right heel and midfoot limited to breakdown of skin; L84 Corns and callosities; E11.41 Type 2 diabetes mellitus with diabetic mononeuropathy; E11.69 Type 2 diabetes mellitus with other specified complication; M86.671 Other chronic osteomyelitis, right ankle and foot; E66.01 Morbid (severe) obesity due to excess calories; F41.9 Anxiety disorder, unspecified; F17.200 Nicotine dependence, unspecified, uncomplicated; F32.9 Major depressive disorder, single episode, unspecified; Z68.42 Body mass index [BMI] 45.0-49.9, adult

== ENCOUNTER → 2018-03-26 | Outpatient (CLI) | payer MEDICAID ==
--- NOTE | 2018-03-28 07:22 | CON ---
[address] [address] CONSULTATION Name: ANGEL LEE JR Room: [facility].#: [id number] Admission: 03/26/18 Attend Phys: Ford Ly DPM Discharge: Date of : 86 Report #: [id number] THIS REPORT FOR: //name// CC: Ford Ly [facility] physician/PCP DATE OF SERVICE: 03/26/2018 ATTENDING PHYSICIAN: Dr. Ford Ly. SUBJECTIVE AND OBJECTIVE: The patient returns in followup of chronic ulceration involving the medial aspect of his right foot. He is post-ray amputation. He does have ongoing issues with probable deep seated infection. He has been on chronic suppressive therapy for a number of weeks to months now. Previous culture did have oxacillin-resistant Staph aureus, which was now resistant to trimethoprim sulfamethoxazole having called on clindamycin based on susceptibilities, however, he had not filled that yet. Discussion today included likelihood of a transmetatarsal amputation. I think the patient as well as Dr. Ly are all in agreement, that should be scheduled in the next few days. ASSESSMENT AND PLAN: Chronic osteomyelitis. At this point, we will plan on continuing the clindamycin, which he assured me he would fill in the interim prior to his surgery, which again may be within next week. We will decide postop about need for parenteral therapy, the extent that he will need wound care, try to optimize his nutritional status, blood sugar control, etc. <ELECTRONICALLY SIGNED> By: Casimiro Cuadra MD 03/28/18 0722 0906 [id number] Cuadra MD /nt
== END ==
LOC: M.WC 04:27
DX: E11.621 Type 2 diabetes mellitus with foot ulcer (principal); L97.516 Non-pressure chronic ulcer of other part of right foot with bone involvement without evidence of necrosis; L97.411 Non-pressure chronic ulcer of right heel and midfoot limited to breakdown of skin; L84 Corns and callosities; E11.41 Type 2 diabetes mellitus with diabetic mononeuropathy; E11.69 Type 2 diabetes mellitus with other specified complication; M86.8X8 Other osteomyelitis, other site; E66.01 Morbid (severe) obesity due to excess calories; F41.9 Anxiety disorder, unspecified; F17.200 Nicotine dependence, unspecified, uncomplicated; Z68.42 Body mass index [BMI] 45.0-49.9, adult

== ENCOUNTER 2018-03-31 09:23 | Inpatient (IN) | payer MEDICAID ==
[~2018-03-31] VITALS: Ht 182.9 cm; Wt 187.8 kg
[~2018-03-31 09:23] MED LIST changes: -DAPTOMYCIN500 MG IV; -LANTUS SUBQ; -PROZAC20 MG PO
[2018-03-31 09:58] VITALS: BP 163/84
[2018-03-31] MEDS ORDERED: LANTUS SUBQ (10:40)
[2018-03-31] MEDS ORDERED: PROZAC20 MG PO (10:40)
[2018-03-31] MEDS ORDERED: CLEOCIN HCL150 MG PO ×2 (10:41)
[2018-03-31 11:15] VITALS: BP 163/84
--- NOTE | 2018-03-31 11:21 | NUR ---
PATIENT ADMITTED TO ROOM 314 A DIRECT ADMIT AT 0940. PATIENT'S ASSESSMENT, HISTORY, AND VITALS CHARTED. PATIENT STATES TAKING A PAIN PILL THIS MORNING PRIOR TO COMING TO HOSPITAL. MEDS REVIEWED WITH PATIENT. CONSULT PLACED TO DR AMIN AND DR BARLOW NOTIFIED OF PATIENT ARRIVING TO FLOOR. PATIENT NOTED TO HAVE PRESSURE ULCER TO RIGHT HEEL, DRESSING REMOVED, PICTURE AND MEASUREMENTS OBTAINED. NEW DRESSING APPLIED PER PATIENT REQUEST. PATIENT'S RIGHT FOOT NOTED TO BE DIABETIC ULCER, STATES HAS BEEN BEEN AN ONGOING PROBLEM. DRESSING REMOVED, ASSESSED WITH DR AMIN AND DR BARLOW IN ROOM. MEASUREMENTS AND PICTURE OBTAINED. PATIENT TO HAVE PICC LINE PLACED FOR ANTIBIOTICS. FALL AGREEMENT SIGNED. PATIENT NPO AND UNDERSTANDS. TO OR THIS AFTERNOON. ORIENTED TO ROOM AND ENVIRONMENT. CALL LIGHT WITHIN REACH. PLACED IN CONTACT ISOLATION FOR HX OF MRSA. WILL CONTINUE WITH PLAN OF CARE.
--- NOTE | 2018-03-31 11:57 | NUR ---
RIGHT CEPHALIC VESSEL ACCESSED FOR PICC. LINE PRE-TRIMMED TO 47 CM AND ADVANCED TO THE ZERO JAQUELIN WITH NO REISISTANCE MET. UPPER ARM CIRCUMFERENCE ABOVE INSERTION SITE= 17". SHERLOCKL MAGNET AND 3CG CONFIRMATION OF TIP TERMINATION AT THE CAVOATRIAL JUNCTION. STYLET REMOVED AND INSERTINO SITE DRESSED. REPORT GIVE TO YOMAIRA CHAMBERLAIN.
[2018-03-31 12:35] LABS: ABSOLUTE BASOPHILS 0.2 thou/uL (0.0-0.2); ABSOLUTE EOSINOPHILS 0.3 thou/uL (0.0-0.7); ABSOLUTE LYMPHOCYTES 1.9 thou/uL (0.8-5.3); ABSOLUTE MONOCYTES 0.8 thou/uL (0.0-1.2); ABSOLUTE NEUTROPHILS 8.5 thou/uL (1.6-8.1); BASOPHILS 1.4 %; EOSINOPHILS 2.6 %; HEMATOCRIT 42.4 % (42.0-52.0); HEMOGLOBIN 13.9 gm/dL (14.0-18.0); LYMPHOCYTES 16.6 %; MCH 25.6 pg (26.0-34.0); MCHC 32.7 g/dL (28.0-37.0); MCV 78.1 fL (80.0-100.0); MPV 8.4 fl. (7.2-11.1); NUCLEATED RBCS 0 /100WBC; PLATELET COUNT* 284 thou/uL (150-400); POLYS 72.4 %; RBC 5.43 mil/uL (4.50-6.00); RDW-CV 15.8 % (10.5-14.5); WBC 11.8 thou/uL (4.0-11.0)
[2018-03-31 12:46] LABS: ALBUMIN 3.2 g/dL (3.4-5.0); CALCIUM 8.9 mg/dL (8.5-10.1); CREATININE 0.9 mg/dL (0.6-1.3); POTASSIUM 3.8 mmol/L (3.5-5.1); TOTAL BILIRUBIN 0.3 mg/dL (<0.1-1.0); TOTAL PROTEIN 7.6 g/dL (6.4-8.2)
--- NOTE | 2018-03-31 15:40 | NUR ---
PATIENT TAKEN TO PACU VIA BED FOR SURGERY. PATIENT'S CHART SENT WITH PATIENT. CONSENT SIGNED AND SENT WITH PACU PERSONNEL.
[2018-03-31 15:49] LABS: URINE BILIRUBIN NEGATIVE (Negative); URINE BLOOD NEGATIVE (Negative); URINE CLARITY CLEAR; URINE COLOR YELLOW; URINE GLUCOSE-RANDOM 3+ (Negative); URINE KETONES NEGATIVE (Negative); URINE LEUKOCYTES NEGATIVE (Negative); URINE NITRITE NEGATIVE (Negative); URINE PROTEIN NEGATIVE (Negative); URINE SPECIFIC GRAVITY >= 1.030 (1.005-1.030); URINE UROBILINOGEN 0.2 E.U./dl (0.2-1.0)
--- NOTE | 2018-03-31 17:55 | EKG ---
[place] [address] ELECTROCARDIOGRAM REPORT Name: ANGEL LEE Room: [address] ADM IN M.R.#: [id number] Admission: 03/31/18 Attend Phys: Amaris Crocker Discharge: Date of : 86 Report #: [id number] THIS REPORT FOR: //name// [facility] Test Date: 2018-03-31 Test Time: 12:51:11 Pat Name: ANGEL LEE Department: Room: [address] Gender: M Local Delivery Driver: : 1985 Requested By: Yves Ruiz Order Number: [id number] Angelica MD: Chinedu Cochran Measurements Intervals [place] Rate: 93 P: 52 MT: 149 QRS: 53 QRSD: 90 T: 25 QT: 349 QTc: 435 Interpretive Statements Sinus rhythm Low voltage, precordial leads No previous ECG available for comparison Electronically Signed On 03-31-2018 17:55:04 CDT by Chinedu Cochran [email or web address] <ELECTRONICALLY SIGNED> By: Chinedu Cochran MD, [facility] 03/31/18 1755 1251 50 Chinedu Cochran MD, FACC /EPI
--- NOTE | 2018-03-31 18:29 | NUR ---
PATIENT REMAINS A/O X 4 THIS SHIFT. CURRENTLY STILL IN SURGERY. RIGHT SINGLE LUMEN PICC LINE PATENT, POSITIONAL FOR BLOOD DRAWS. PICTURES OBTAINED PRIOR TO SURGERY OF RIGHT FOOT. XRAY COMPLETED. IV ANTIBIOTICS INFUSED. HOME MEDS RESUMED. REMAINS IN CONTACT ISOLATION FOR HX OF MRSA. HOURLY ROUNDING COMPLETED. CALL LIGHT WITHIN REACH. WILL CONTINUE WITH PLAN OF CARE.
[2018-03-31 19:35] VITALS: BP 147/93
[2018-04-01] VITALS: BP 98/46
[2018-04-01 04:08] VITALS: BP 121/72
--- NOTE | 2018-04-01 05:12 | NUR ---
PT ARRIVED FROM PACU. PT ORIENTED TO ROOM, VITAL SIGNS OBTAINED. PT EXPRESSED NO CONCERNS AT THIS TIME. ASSESSMENT DOCUMENTED. MEDS GIVEN PER E-MAR. PICC PATENT. 2L NC WHILE SLEEPING. PAIN MEDS GIVEN PER E-MAR. PT REFUSED INSULIN THIS SHIFT SINCE HE DID NOT WANT TO EAT DINNER. PT ATE BOXED LUNCH THIS AM WITH NO NAUSEA. DRESSING ON RIGHT FOOT C/D/I, LESLIE DRAIN IN PLACE. WILL CONTINUE WITH PLAN OF CARE.
--- NOTE | 2018-04-01 07:57 | CON ---
[address] [address] CONSULTATION Name: ANGEL LEE JR Room: [address] IN .R.#: [id number] Admission: 03/31/18 Attend Phys: Amaris Crocker Discharge: Date of : 86 Report #: [id number] THIS REPORT FOR: //name// CC: Ford ALONSO PCP DATE OF SERVICE: 03/31/2018 ATTENDING PHYSICIAN: Dr. Ruiz. REASON FOR EVALUATION: Osteomyelitis involving the medial aspect of the right foot. HISTORY OF PRESENT ILLNESS: Chart reviewed, the patient examined. This is a 32-year-old gentleman, well known to myself, has diabetes mellitus type 2, insulin requiring. He has generally not been well controlled. He has had multiple complications resulted including retinopathy, has had previous toe amputations due to chronic osteomyelitis, who presents with longstanding ulcer at the ray amputation site involving the medial aspect of his right foot in spite of aggressive wound care and extended periods of antimicrobials this has failed to heal. He is here for a transmetatarsal amputation. He has not been significantly systemically ill. ALLERGIES: None known. MEDICATIONS: Include insulin, nicotine patch, ondansetron, fluoxetine, alprazolam, hydrocodone. PAST MEDICAL HISTORY: Diabetes mellitus with multiple sequelae, peripheral neuropathy. SOCIAL HISTORY: No ethanol. Smokes tobacco. FAMILY HISTORY: Noncontributory. REVIEW OF SYSTEMS: As above. Denies any significant pulmonary or gastrointestinal related complaints. PHYSICAL EXAMINATION: GENERAL: He is alert, cooperative, appropriate, appears to be generally well nourished. VITAL SIGNS: Temperature 98.9, pulse of 108, respirations 18, temperature 163/84. SKIN: Warm, dry, no rashes. [address] [address] CONSULTATION Name: ANGEL LEE Room: [address]#: [id number] Admission: 03/31/18 Attend Phys: Amaris Crocker Discharge: Date of : 86 Report #: [id number] HEENT: Otherwise, unremarkable. NECK: Supple. LUNGS: Clear to auscultation. HEART: Regular. I do not appreciate any murmur. ABDOMEN: Obese, soft, nontender. EXTREMITIES: Right foot, the wound is fairly stable. There is moderate degree of inflammation noted. It does extend the sinus tract down to the metatarsophalangeal joint. ASSESSMENT AND PLAN: Chronic osteomyelitis. We will continue antimicrobial therapy. Initiate order for a PICC line and parenteral therapy. He is scheduled to have the transmetatarsal later today. We will follow postoperative. <ELECTRONICALLY SIGNED> By: Casimiro Cuadra MD 04/01/18 0757 1146 Xochitl Cuadra MD /nt
[2018-04-01 08:18] VITALS: BP 136/52
--- NOTE | 2018-04-01 15:04 | NUR ---
WOUND CARE NOTE: CONSULT RECEIVED FOR TMA OF RIGHT FOOT. PATIENT IS POD #1 FROM A TMA. EMBOSSOGRAPH OPERATOR AND INTERNAL MEDICINE PHYSICIANS IN TO ASSESS WOUND TOO. INCISION LINE IS WELL APPROXIMATED WITH SUTURES IN PLACE. NO DRAINAGE NOTED. CLEANSED WOUND WITH WOUND CLEANSER, PATTED DRY. INES-WOUND WITH SLIGHT INFLAMMATION AND EDEMA. APPLIED AQUACEL AG TO INCISION LINE AND COVERED WITH ABD. SECURED WITH KERLIX AND DEWEY. RIGHT LATERAL HEEL: FULL THICKNESS ULCERATION, BELIEVE TO BE A DIABETIC FOOT ULCER. WOUND MEASURES 1X0.8X0.6. WOUND BED IS PINK, MOIST WITH SLIGHT SEROUS DRAINAGE. INES-WOUND IS CALLUSED. WOUND WAS CLEANSED WITH WOUND CLEANSER, PATTED DRY. APPLIED AQUACEL AG INTO WOUND BED AND COVERED WITH 4X4, SECURED WITH KERLIX AND DEWEY. PATIENT TOLERATED DRESSING CHANGE WELL. EDUCATED PATIENT ON IMPORTANCE OF KEEEPING OFF WOUND TO RIGHT HEEL, COMMUNICATED UNDERSTANDING. RECOMMEND TIGHT BLOOD GLUCOSE CONTROL ENCOURAGE GOOD NUTRTION/HYDRATION FOR WOUND HEALING KEEP OFF RIGHT FOOT FOLLOW UP IN WOUND CENTER UPON DISCHARGE
--- NOTE | 2018-04-01 15:42 | NUR ---
SPOKE WITH PT. HE WAS ALERT AND ORIENTED. HE SAID HE STILL LIVES WITH Tre.O.,SANTOS. SHE HELPS HIM NEEDED. HE SAID HE HAD NO PROBLEMS WITH IV ANTIBIOTIC INFUSION LAST OCTOBER. HE WOULD LIKE TO USE THE SAME [facility] FOR THE MEDICATION AND [facility] FOR ASSIST WITH IVAB AND DRESSING CHANGES. HE HAS A CANE HE USES FOR INDOORS AND KNEE SCOOTER FOR LONG DISTANCES. HE SAID THE KNEE SCOOTER IS TOO BIG FOR HIS HOUSE. HE UNDERSTANDS HIS POC. CM MADE INITIAL REFERRAL TO [facility] AND [facility].
--- NOTE | 2018-04-01 19:06 | NUR ---
PATIENT HAS BEEN A/O X 4 THIS SHIFT. MEDICATED FOR RIGHT FOOT PAIN ALTERNATING BETWEEN IV AND ORAL PAIN MEDS. DRESSING TO RIGHT FOOT CHANGED BY TOOL MARKER AND DR MONTALVO. LESLIE DRAIN IN PLACE DRAINING SANG DRAINAGE. ELEVATED ON PILLOWS. PATIENT NON WEIGHT BEARING TO RIGHT FOOT. VOIDING PER URINAL. BLOOD SUGARS MONITORED AND HOME DOSE OF METFORMIN RESUMED. PATIENT LABILE AT TIMES WITH MOOD. IV ANTIBIOTICS INFUSED, ADJUSTED BY PHARMACY DUE TO LOW VANC TROUGH. REMAINS IN CONTACT ISOLATION FOR HX OF MRSA. HOURLY ROUNDING COMPLETED. CALL LIGHT WITHIN REACH. WILL CONTINUE WITH PLAN OF CARE.
[2018-04-02] VITALS: BP 122/83
--- NOTE | 2018-04-02 05:49 | NUR ---
PATIENT SLEPT WELL DURING THIS SHIFT. PT VOIDS PER URINAL AT BEDSIDE. DSG ON RT FOOT C/D/I. PT WITH PICC LINE IN UPPER RT ARM; ABLE TO FLUSH BUT NOT ABLE TO DRAW AT THIS TIME. PT IS ON ROOM AIR. PT IS IN ISOLATION FOR MRSA. PT DENIES NEEDS AT THIS TIME. FREQUENTLY USED ITEMS AND CALL LIGHT WITHIN REACH. SIDERAILS UPX2. WILL CONTNUE TO MONITOR.
[2018-04-02 08:15] VITALS: BP 110/71
--- NOTE | 2018-04-02 16:10 | NUR ---
FAXED FACE SHEET AND MED LIST TO [facility] TO CHECK BENEFITS FOR IV ANTIBIOTICS. [phone].
--- NOTE | 2018-04-02 18:51 | NUR ---
PATIENT HAS BEEN A/O X 4 THIS SHIFT. MEDICATED FOR RIGHT FOOT PAIN X 2 TODAY WITH PARTIAL RELIEF. CONTINUES ON IV ANTIBIOTICS. PICC LINE PATENT TO RIGHT UPPER ARM, FLUSHES WITH EASE. PATIENT NWB TO RIGHT FOOT. RIGHT FOOT DRESSING CHANGED AFTER SHOWER THIS SHIFT. PATIENT'S BLOOD SUGAR IMPROVED THIS SHIFT. INSULIN GIVEN ORDRED. CULTURES PENDING. HOURLY ROUNDING COMPLETED. CALL LIGHT WITHIN REACH. WILL CONTINUE WITH PLAN OF CARE.
[2018-04-03] VITALS: BP 110/66
[2018-04-03 08:00] VITALS: BP 122/68
--- NOTE | 2018-04-03 09:40 | NUR ---
VOICE MAIL FROM [facility] COVERED AT 100% FOR HOME IV ANTIBIOTICS. CALL WHEN FINAL ANTIBIOTIC KNOWN [phone].
[2018-04-03 14:47] LABS: AMP/METHAMP Negative (Negative); BARBITURATES Negative (Negative); BENZODIAZEPINES POSITIVE (Negative); COCAINE Negative (Negative); METHADONE Negative (Negative); OPIATES POSITIVE (Negative); PCP Negative (Negative); THC Negative (Negative)
[2018-04-03 16:39] VITALS: BP 144/88
[2018-04-03 19:50] VITALS: BP 154/90
[2018-04-04 04:44] LABS: ABSOLUTE BASOPHILS 0.1 thou/uL (0.0-0.2); ABSOLUTE EOSINOPHILS 0.4 thou/uL (0.0-0.7); ABSOLUTE LYMPHOCYTES 1.5 thou/uL (0.8-5.3); ABSOLUTE MONOCYTES 0.6 thou/uL (0.0-1.2); ABSOLUTE NEUTROPHILS 5.9 thou/uL (1.6-8.1); BASOPHILS 1.1 %; HEMATOCRIT 36.6 % (42.0-52.0); HEMOGLOBIN 11.9 gm/dL (14.0-18.0); LYMPHOCYTES 17.5 %; MCH 25.7 pg (26.0-34.0); MCHC 32.4 g/dL (28.0-37.0); MCV 79.3 fL (80.0-100.0); MONOCYTES 7.5 %; MPV 8.2 fl. (7.2-11.1); NUCLEATED RBCS 0 /100WBC; PLATELET COUNT* 231 thou/uL (150-400); POLYS 68.9 %; RBC 4.61 mil/uL (4.50-6.00); RDW-CV 15.7 % (10.5-14.5); WBC 8.6 thou/uL (4.0-11.0)
[2018-04-04 05:06] LABS: ALBUMIN 2.4 g/dL (3.4-5.0); CALCIUM 8.3 mg/dL (8.5-10.1); CREATININE 0.7 mg/dL (0.6-1.3); POTASSIUM 3.7 mmol/L (3.5-5.1); TOTAL BILIRUBIN 0.2 mg/dL (<0.1-1.0); TOTAL PROTEIN 6.2 g/dL (6.4-8.2)
--- NOTE | 2018-04-04 05:16 | NUR ---
PT SLEPT MOST OF SHIFT. ASSESSMENT DOCUMENTED. MEDS GIVEN PER E-MAR PICC PATNET. IV ABX INFUSED. DRESSING ON RIGHT FOOT CHANGED THIS SHIFT. LESLIE DRAIN IN PLACE. PAIN MEDS GIVEN PER E-MAR, PT STATING HE WILL NOT TAKE ORAL PAIN MEDICATION UNTIL THE DOCTORS TAKE HIS MORPHINE AWAY. PT STATES HE HAD 15 LOOSE WATER STOOLS THROUGH THE DAY, PT REFUSED TO GIVE STOOL SAMPLE TO SEND FOR C-DIFF STATING HE THINKS THE STOOLS ARE "BECAUSE I ATE TACO MANUEL". PT EDUCATED. WILL CONTINUE WITH PLAN OF CARE.
[2018-04-04 07:50] VITALS: BP 138/83
--- NOTE | 2018-04-04 11:59 | NUR ---
THADDEUS discussed pt IV abx situation with Dr Cuadra who stated that he plans to change the therapy and await results, no final order for IV abx as of yet. THADDEUS called [facility] and provided update to Jayy and he said that if order is ready over the weekend, collection clerk number is [phone]. [facility] already has initial referral for HH services, orders to be sent upon dc.
[2018-04-04 16:00] VITALS: BP 141/89
--- NOTE | 2018-04-04 18:43 | NUR ---
PATIENT A&OX4, RA, RIGHT UPPER SINGLE LUMEN PICC SALINE LOCK. UP AD JESUS, NON WEIGHT BEARING TO RIGHT FOOT. DRESSING CHANGED TODAY BY PHYSICIAN. C/O JIMMIE, PARTIAL RELIEF WITH MEDICATION. NO OTHER CONCERNS AT THIS TIME. APPROPRIATE AND COOPORATIVE WITH CARE.
[2018-04-04 21:00] VITALS: BP 135/76
--- NOTE | 2018-04-05 05:30 | NUR ---
PT SLEPT MOST OF SHIFT. ASSESSMENT DOCUMENTED. MEDS GIVEN PER E-MAR. PICC PATENT. PAIN MEDS GIVEN PER E-MAR PER PATIENT REQUEST. WILL CONTINUE WITH PLAN OF CARE.
[2018-04-05 07:40] VITALS: BP 126/79; BP 135/85
--- NOTE | 2018-04-05 11:20 | NUR ---
ID in to see Pt today, anticipate dc on Saturday.
--- NOTE | 2018-04-05 16:45 | NUR ---
PATIENT A&OX4, RA, IV RIGHT UPPER ARM PICC SINGLE LUMEN, SALINE LOCK. UP AD JESUS, STEADY GAIT. NON WEIGHT BEARING TO RIGHT FOOT. C/O PIAN, PARTIAL RELEIF WITH MEDICATION. DRESSING CHANGED BY PHYSICIAN, C/D/I. LESLIE DRAIN IN PLACE, MONITORED. NO OTHER CONCERNS AT THIS TIME. APPROPRIATE AND COOPORATIVE WITH CARE.
[2018-04-05 16:54] VITALS: BP 143/89
[2018-04-06 00:31] VITALS: BP 99/52
[2018-04-06 04:00] VITALS: BP 125/65
[2018-04-06 05:48] LABS: ABSOLUTE BASOPHILS 0.1 thou/uL (0.0-0.2); ABSOLUTE EOSINOPHILS 0.4 thou/uL (0.0-0.7); ABSOLUTE LYMPHOCYTES 1.4 thou/uL (0.8-5.3); ABSOLUTE MONOCYTES 0.5 thou/uL (0.0-1.2); ABSOLUTE NEUTROPHILS 6.2 thou/uL (1.6-8.1); BASOPHILS 0.9 %; EOSINOPHILS 4.4 %; HEMATOCRIT 38.4 % (42.0-52.0); HEMOGLOBIN 12.5 gm/dL (14.0-18.0); LYMPHOCYTES 16.5 %; MCH 25.5 pg (26.0-34.0); MCHC 32.5 g/dL (28.0-37.0); MCV 78.6 fL (80.0-100.0); MONOCYTES 6.4 %; NUCLEATED RBCS 0 /100WBC; PLATELET COUNT* 250 thou/uL (150-400); POLYS 71.8 %; RBC 4.88 mil/uL (4.50-6.00); RDW-CV 15.5 % (10.5-14.5); WBC 8.6 thou/uL (4.0-11.0)
--- NOTE | 2018-04-06 05:56 | NUR ---
PATIENT SLEPT MOST OF THE NIGHT. BLOOD SUGAR WAS 154 PATIENT REFUSED LONG ACTING INSULIN. PATIENT WAS GIVEN PAIN MEDICINE TWICE WITH GOOD RELIEF. DRESSING TO LEFT FOOT REMAINS INTACT WITH LESLIE DRAIN IN PLACE. WILL CONTINUE TO MONITOR.
[2018-04-06 06:04] LABS: CALCIUM 8.5 mg/dL (8.5-10.1); CREATININE 0.6 mg/dL (0.6-1.3); POTASSIUM 3.8 mmol/L (3.5-5.1)
[2018-04-06 07:55] VITALS: BP 130/86
[2018-04-06 16:20] VITALS: BP 140/88
--- NOTE | 2018-04-06 17:06 | NUR ---
PATIENT A&OX4, RA, IV RIGHT UPPER ARM PICC, SALINE LOCK. UP AD JESUS, STEADY, NON WEIGHT BEARING TO RIGHT FOOT, WALKER AT BEDSIDE. C/O PAIN TO RIGHT FOOT, TRYING TO STICK WITH JUST PO PAIN MEDICATION, PARTIAL RELIEF WITH MEDICATION. DRESSING TO RIGHT FOOT AND ANKLE CHANGED TODAY BY DR. ALANIS. ORDERS TO KEEP DRESSING INTACT UNTIL FOLLOW UP FISIT AT WOUND CLINIC. NO OTHER CONCERNS AT THIS TIME. APPROPRIATE AND COOPORATIVE WITH CARE.
[2018-04-07] VITALS: BP 141/79
--- NOTE | 2018-04-07 05:57 | NUR ---
PATIENT SLEPT MOST OF THE NIGHT. PATIENT WAS GIVEN PAIN MEDICINE TWICE THIS SHIFT. DRESSING TO RIGHT FOOT REMAINS INTACT WITH LESLIE DRAIN IN PLACE. PATIENT IS POSSIBLY GOING HOME TODAY. WILL CONTINUE TO MONITOR.
[2018-04-07 08:30] VITALS: BP 155/103
[2018-04-07 11:19] VITALS: BP 155/103
--- NOTE | 2018-04-07 11:21 | NUR ---
Pt to dc home today. THADDEUS discussed with pt; SW faxed final orders to [facility] Rx for IV abx and to [facility] for nurse follow up. Pt plans to return to OP wound clinic on Wednesdays. Pt has transportation home. No other needs expressed.
[2018-04-07] MEDS ORDERED: DAPTOMYCIN500 MG IV (11:39)
--- NOTE | 2018-04-07 12:18 | NUR ---
PATIENT GIVEN DISCHARGE INSTRUCTIONS AND PRESCRIPTIONS AT THIS TIME. PATIENT VERBALIZED UNDERSTANDING IN REGARDS TO FOLLOW UP APPOINTMENTS, WOUND CARE, AND LESLIE DRAIN MAINTENANCE. PATIENT'S DRESSING CHANGED TO RIGHT FOOT AND PICTURES OBTAINED. PATIENT GIVEN PAIN MEDS PRIOR TO DISCHARGE. ESCORTED OFF NURSING UNIT VIA WHEELCHAIR WITH PATIENT'S SIGNIFICANT OTHER. PATIENT DISCHARGED TO HOME WITH ALL BELONGINGS.
--- NOTE | 2018-04-08 12:05 | PATH ---
[address] [address] PATHOLOGY RPT PROCEDURE Name: ANGEL LEE Room: [address] IN .R.#: [id number] Admission: 03/31/18 Date of : 87 Discharge: 04/07/18 Report #: [id number] Path Case #: [id number] [facility] Accession Number: [id number] . 01 Material submitted: . RIGHT 1ST, 2ND, 3RD, 4TH METATARSALS . 01 Clinician provided ICD-10: M86.8X7 . 01 Clinical history: . Osteomyelitis right great toe joint . 02 Diagnosis: Tissue submitted as "right first, second, third, fourth metatarsals": - Right forefoot with nonspecific ulceration of plantar surface and osteomyelitis of great toe phalangeal/metatarsal bones, with resection margins of first, second, third, fourth metatarsals as well as separate segment of bone (A11-A12), free of osteomyelitis. (MORA:demetris; 04/07/2018) QMS/04/07/2018 . 02 Electronically signed: . Lefty Valerio MD, Pathologist NPI- [id number] . 01 Gross description: . The specimen is received in formalin, labeled "Angel Lee JR, right first, second, third, fourth metatarsal", are three portions of right foot consisting of four metatarsal bones measuring 6.0 cm in length and 8.0 x 3.0 cm with attached rowley-white to yellow soft tissue. The resection margin for the great toe is hemorrhagic with possible necrosis. The remainin margins for the second, third and fourth toe shows a wright-brown viable bone with the distal composed of a concave rowley-white articular cartilage. The second portion is a forefoot measuring 6.5 cm in length and 9.5 x 5.0 cm. The proximal ascept of the great toe shows irregular, rowley-white to brown surface with the remaining digits showing a rowley-white concave articular cartilage. The third portion is a wright-pink trabeculated bone measuring 1.5 cm in length and 3.7 x 2.5 cm in girth with one end showing wright-brown partially smooth bone with the opposite concave showing a rowley-white articular cartilage. The plantar surface of great toe shows a portion of ulcer measuring 3.0 x 1.0 cm. The great toe nail is wright-yellow with a 0.8 x 0.4 cm hemorrhagic focus on the medial aspect. The remaining nails are trivedi-yellow and crusted. Sectioning through the forefoot great toe joint shows a rowley-brown necrotic cut surface. The bone underlying the hemorrhagic focus of great toe is wright-brown and unremarkable. The great toe metatarsal joint is black-rowley and necrotic. The cut surface for the additional fragment is wright-[place] [address] PATHOLOGY RPT PROCEDURE Name: ANGEL LEE JR Room: [address] DIS IN M.R.#: [id number] Admission: 03/31/18 Date of : 87 Discharge: 04/07/18 Report #: [id number] Path Case #: [id number] All the sections are submitted after decalcification. . Molding Line Assistant tissues are submitted as follows: A1-A2. Great toe, metatarsal portion, proximal resection margin A3. Second digit, metatarsal portion, proximal resection margin A4. Third digit, metatarsal portion, proximal resection margin A5. Fourth digit, metatarsal portion, proximal resection margin A6-A7. Great toe, forefoot plantar ulcer to joint A8-A9. Great toe, metatarsal portion to joint A10. Great toe, forefoot hemorrhagic focus A11-A12. Separately received bone ([facility]; 04/02/2018) SHS/SHS . 02 Pathologist provided ICD-10: L97.519, M86.8X7 . 02 CPT . 111151, 365325 Specimen Comment: A courtesy copy of this report has been sent to Specimen Comment: [phone], , . Specimen Comment: Report sent to ,DR BARLOW / DR AMIN Specimen Comment: A duplicate report has been generated due to demographic updates. Performed at: 01 [facility] [address], [place], [place] [id number] MD René Arcos MD Phone: [phone] Performed at: 02 [facility] [address] , [place], [place] [id number] MD Lefty Valerio MD Phone: [phone]
--- NOTE | 2018-04-30 14:14 | CON ---
[address] [address] CONSULTATION Name: ANGEL LEE JR Room: [address] IN M.R.#: [id number] Admission: 03/31/18 Attend Phys: Amaris Crocker Discharge: 04/07/18 Date of : 87 Report #: [id number] THIS REPORT FOR: //name// CC: Ford ALONSO [facility] DATE OF SERVICE: 04/06/2018 CHIEF COMPLAINT: Status post right transmetatarsal amputation with primary closure over LESLIE drain. HISTORY OF PRESENT ILLNESS: He is doing well, has moderate pain to the foot controlled with morphine and hydrocodone. He is on parenteral daptomycin with good tolerance. Surgical cultures growing MRSA to soft tissue, bone had no growth. LABORATORY DATA: WBC 8.6, RBC 4.88, hemoglobin 12.5, hematocrit 38.4, platelets 250. BUN 13, creatinine 0.6, glucose is 184. PHYSICAL EXAMINATION: Right foot incision is well approximated with slight inflammation to the far medial aspect. No dehiscence, drainage or bleeding. Immediate oswaldo-incisional capillary refill with no pallor or cyanosis. No underlying fluctuance or crepitation. The LESLIE drain is functioning with no clotting. There is roughly 20 mL of sanguinous drainage present. He can flex and extend the ankle and foot can assume a 90 degree rectus alignment at the ankle joint. No popliteal adenopathy, negative Homans or Puente sign to either leg. Mild tenderness with palpation to the site. IMPRESSION: Status post right transmetatarsal amputation with primary closure over LESLIE drain, type 1 diabetes mellitus with neuropathy. PLAN: Incision was cleansed and dried and redressed with Aquacel Ag, 4 x 4s, ABD, Kerlix and Shahab. The patient to be strictly nonweightbearing and I reinforced this to him. He was instructed to use his knee walker and elevate the leg. I will see him next Saturday at [facility] and pull the LESLIE drain at that point. My understanding is that the patient will come to the Infusion Department daily for his daptomycin. <ELECTRONICALLY SIGNED> By: Ford Ly DPM 04/30/18 1414 0900 [id number] Ly DPM /nt
--- NOTE | 2018-04-30 14:14 | CON ---
[address] [address] CONSULTATION Name: ANGEL LEE JR Room: [address] IN .R.#: [id number] Admission: 03/31/18 Attend Phys: Amaris Crocker Discharge: 04/07/18 Date of : 87 Report #: [id number] THIS REPORT FOR: //name// CC: Ford Ruiz NO PCP CHIEF COMPLAINT: Status post right transmetatarsal amputation for osteomyelitis. Surgical cultures showing Staph aureus. Pathology is still pending. He relates mild pain to the area, decreased. He has been afebrile with no constitutional symptoms. He is on parenteral vancomycin with good tolerance . LABORATORY DATA: WBC 8.6, RBC 4.61, hemoglobin 11.9, hematocrit 36.6, platelets 231, BUN 13, creatinine 0.7, glucose 170. PHYSICAL EXAMINATION: The incision is well coapted, there is some maceration to the lateral aspect with no jigna dehiscence. Low grade inflammation improved. No pallor, cyanosis or signs of acute vascular embarrassment. LESLIE drain functioning with sanguinous drainage. Foot is warm, no popliteal adenopathy. Negative Homans' and Puente sign bilaterally. IMPRESSION: Osteomyelitis, type 2 diabetes mellitus with poor glycemic control, status post right transmetatarsal amputation. PLAN: The patient to remain nonweightbearing with LESLIE drain intact. Awaiting final culture results. PT for nonweightbearing training with knee walker. <ELECTRONICALLY SIGNED> By: Ford Ly DPM 04/30/18 1414 0722 [id number] Ly DPM /nt
--- NOTE | 2018-04-30 14:14 | OP ---
[address] [address] OPERATIVE REPORT Name: ANGEL LEE JR Room: [address] IN M.R.#: [id number] Admission: 03/31/18 Attend Phys: Amaris Crocker Discharge: 04/07/18 Date of : 87 Report #: [id number] THIS REPORT FOR: //name// CC: Ford Ruiz NO PCP DATE OF SERVICE: 03/31/2018 SURGEON: Ford Ly DPM. PREOPERATIVE DIAGNOSIS: Osteomyelitis, right first metatarsophalangeal joint with nonhealing foot wound. POSTOPERATIVE DIAGNOSIS: Osteomyelitis, right first metatarsophalangeal joint with nonhealing foot wound. PROCEDURE: Transmetatarsal amputation, right foot with skin flap and primary closure over LESLIE drain. ANESTHESIA: General LMA. INJECTABLES: 30 mL of a 1:1 mixture of 0.5% Marcaine and 1% lidocaine. ESTIMATED BLOOD LOSS: Roughly 50 mL. HEMOSTASIS: Right ankle pneumatic tourniquet at 250 mmHg. SPECIMENS: Right distal forefoot to include the first, second, third and fourth metatarsals and associated toes. CULTURES: 1. Bone, right distal first metatarsal, aerobic and anaerobic. 2. Soft tissue, right foot, aerobic and anaerobic. SUTURES: 2-0 nylon, 3-0 nylon. COMPLICATIONS: None. DESCRIPTION OF PROCEDURE: The patient was brought to the OR and placed on the table supine with induction of general LMA anesthesia. A well-padded right ankle pneumatic tourniquet was placed and a local anesthetic block was given. The extremity was prepped and draped aseptically. The foot was exsanguinated with inflation of the tourniquet. A #10 blade was used to create a fishmouth incision to the right distal foot with full thickness soft tissue flaps, [place] [address] OPERATIVE REPORT Name: ANGEL LEE Room: [address] IN [facility]#: [id number] Admission: 03/31/18 Attend Phys: Amaris Crocker Discharge: 04/07/18 Date of : 86 Report #: [id number] were retracted dorsal and plantarly. Electrocautery was used for hemostasis. Dissection was carried down to the level of the distal metatarsals and the second through fourth toes were disarticulated at the MTP joints and sent for pathology. The soft tissue flaps were then mobilized more proximally and I used a sagittal saw to transect the first through fourth metatarsals at the proximal aspects. When I saw through the first metatarsal, the bone was somewhat soft, so I disarticulated the remaining proximal portion, thereby removing the entire first metatarsal. Soft tissue was debrided from the surgical wound to include excessive tendons and subcutaneous tissue. The wound was then pulse lavaged with 3 liters of sterile saline with 150,000 units of bacitracin irrigant. The skin flaps were then remodeled to allow for appropriate closure. A 2-0 and 3-0 nylon were used in simple interrupted fashion to reapproximate the dorsal and plantar skin. A #10-Korean needle was used for the LESLIE drain. The entire surgical incision was primarily closed with no residual open wounds. The tourniquet was deflated with vascular return to the foot and full function of the LESLIE drain. The foot was cleansed and dried and the incision was dressed with Betadine-soaked Adaptic and covered with fluffs, ABDs and Kerlix gauze followed by 6-inch Shahab wraps for compression. The patient left the OR with no complications noted. <ELECTRONICALLY SIGNED> By: Ford Ly DPM 04/30/18 1414 32 Dakalyani Ly DPM /nt
--- NOTE | 2018-04-30 14:14 | CON ---
[address] [address] CONSULTATION Name: ANGEL LEE JR Room: [address] IN M.R.#: [id number] Admission: 03/31/18 Attend Phys: Amaris Crocker Discharge: 04/07/18 Date of : 87 Report #: [id number] THIS REPORT FOR: //name// CC: Ford ALONSO PCP DATE OF SERVICE: 04/05/2018 CHIEF COMPLAINT AND HISTORY OF PRESENT ILLNESS: Status post right transmetatarsal amputation with primary closure. Surgical soft tissue cultures growing MRSA resistant to clindamycin, tetracycline and Bactrim. He is on parenteral daptomycin. He has been afebrile, no malaise. Relates moderate pain to the surgical site. Surgical pathology is pending. No new labs for review. PHYSICAL EXAMINATION: The incision is well approximated with moderate edema and low-grade resolving erythema. There is no dehiscence, fluctuance, crepitation or signs of vascular embarrassment. Scant drainage on the bandage from the far lateral aspect of the incision closest to where the infection site was. Negative Homans' or Puente sign bilaterally. IMPRESSION: Status post right transmetatarsal amputation with normal postoperative course. PLAN: Incision was cleansed and dried. Aquacel Ag was placed over the incision followed by 4 x 4s, ABDs, Kerlix, and Shahab bandage. The patient to remain strictly nonweightbearing to the extremity. We will follow tomorrow. <ELECTRONICALLY SIGNED> By: Ford Ly DPM 04/30/18 1414 0755 1024Ford Ly DPM /nt
== END 2018-04-07 12:22 | disposition home health service (06) | DRG 617 ==
LOC: M.3W 09:23
PROVIDERS: Internal Medicine; ADMIT Internal Medicine
PROC: 0Y6M0Z7 Detachment at Right Foot, Complete 4th Ray, Open Approach (ICD-10-PCS; principal; 2018-03-31)
PROC: 0Y6M0Z5 Detachment at Right Foot, Complete 2nd Ray, Open Approach (ICD-10-PCS; principal; 2018-03-31)
PROC: 0Y6M0Z6 Detachment at Right Foot, Complete 3rd Ray, Open Approach (ICD-10-PCS; principal; 2018-03-31)
PROC: 0LDV0ZZ Extraction of Right Foot Tendon, Open Approach (ICD-10-PCS; 2018-03-31)
PROC: 0Y6M0Z9 Detachment at Right Foot, Partial 1st Ray, Open Approach (ICD-10-PCS; 2018-03-31)
PROC: 02HV33Z Insertion of Infusion Device into Superior Vena Cava, Percutaneous Approach (ICD-10-PCS; 2018-03-31)
DX: E11.69 Type 2 diabetes mellitus with other specified complication (principal); Z68.43 Body mass index [BMI] 50.0-59.9, adult; M86.671 Other chronic osteomyelitis, right ankle and foot; F32.9 Major depressive disorder, single episode, unspecified; G89.29 Other chronic pain; F17.210 Nicotine dependence, cigarettes, uncomplicated; E11.65 Type 2 diabetes mellitus with hyperglycemia; E66.01 Morbid (severe) obesity due to excess calories; E11.42 Type 2 diabetes mellitus with diabetic polyneuropathy; E11.319 Type 2 diabetes mellitus with unspecified diabetic retinopathy without macular edema; Z89.422 Acquired absence of other left toe(s); Z79.4 Long term (current) use of insulin; Z86.14 Personal history of Methicillin resistant Staphylococcus aureus infection; Z89.421 Acquired absence of other right toe(s)

== ENCOUNTER → 2018-04-09 | Outpatient (CLI) | payer MEDICAID ==
[~2018-04-09] MED LIST changes: +DAPTOMYCIN500 MG IV; +LANTUS SUBQ; +PROZAC20 MG PO
== END ==
LOC: M.WC 03:11
DX: T81.89XD Other complications of procedures, not elsewhere classified, subsequent encounter (principal); E11.621 Type 2 diabetes mellitus with foot ulcer; L97.411 Non-pressure chronic ulcer of right heel and midfoot limited to breakdown of skin; L97.511 Non-pressure chronic ulcer of other part of right foot limited to breakdown of skin; E11.41 Type 2 diabetes mellitus with diabetic mononeuropathy; E66.01 Morbid (severe) obesity due to excess calories; F17.200 Nicotine dependence, unspecified, uncomplicated; F41.9 Anxiety disorder, unspecified; F31.9 Bipolar disorder, unspecified; Z68.42 Body mass index [BMI] 45.0-49.9, adult; Z89.421 Acquired absence of other right toe(s); Y83.8 Other surgical procedures as the cause of abnormal reaction of the patient, or of later complication, without mention of misadventure at the time of the procedure

== ENCOUNTER → 2018-04-23 | Outpatient (CLI) | payer MEDICAID | LOC: M.WC 04-16 14:00 | DX: T81.89XA Other complications of procedures, not elsewhere classified, initial encounter (principal); E11.621 Type 2 diabetes mellitus with foot ulcer; L97.412 Non-pressure chronic ulcer of right heel and midfoot with fat layer exposed; L84 Corns and callosities; E11.42 Type 2 diabetes mellitus with diabetic polyneuropathy; E11.69 Type 2 diabetes mellitus with other specified complication; M86.8X8 Other osteomyelitis, other site; E66.01 Morbid (severe) obesity due to excess calories; F17.200 Nicotine dependence, unspecified, uncomplicated; F41.9 Anxiety disorder, unspecified; F32.9 Major depressive disorder, single episode, unspecified; Z68.42 Body mass index [BMI] 45.0-49.9, adult; Z89.431 Acquired absence of right foot; Y92.89 Other specified places as the place of occurrence of the external cause; Y83.8 Other surgical procedures as the cause of abnormal reaction of the patient, or of later complication, without mention of misadventure at the time of the procedure ==

== ENCOUNTER → 2018-05-07 | Outpatient (CLI) | payer MEDICAID ==
--- NOTE | 2018-05-08 12:15 | CON ---
[address] [address] CONSULTATION Name: ANGEL LEE JR Room: [facility].#: [id number] Admission: 05/07/18 Attend Phys: Ford Ly DPM Discharge: Date of : 87 Report #: [id number] THIS REPORT FOR: //name// CC: Ford Ly [facility] physician/PCP DATE OF SERVICE: 05/07/2018 INFECTIOUS DISEASE FOLLOWUP ATTENDING PHYSICIAN: Ford Ly DPM. HISTORY OF PRESENT ILLNESS: The patient returns in followup ongoing treatment for chronic osteomyelitis involving his foot. He is status post transmetatarsal amputation, completed the 5 weeks of therapy most recently in combination with daptomycin as well as sulfamethoxazole. He did have a culture collected in the clinic roughly 2 weeks ago, with growth of Escherichia coli in addition to a previously known MRSA. PHYSICAL EXAMINATION: On examination, there is still an extended tunnel that moves mediolateral at the metatarsal site. Per Dr. Ly, he cannot appreciate probing to any bone. ASSESSMENT AND PLAN: Chronic osteomyelitis. At this point, given the extensive antimicrobial treatment, there is question of increasing adverse drug effect. We will discontinue the antibiotics; however, maintain the PICC line. Continue to get weekly labs, at least additional next week. Wound care as per primary doctor, Dr. Ly. We will add a topical gentamicin to the wound. Dressing changes with the packing. He was instructed to call if any concerns or problems. We will see him in one week. <ELECTRONICALLY SIGNED> By: Casimiro Cuadra MD 05/08/18 1215 2119 [id number] Cuadra MD /nt
== END ==
LOC: M.WC 04-30 03:22
DX: T87.81 Dehiscence of amputation stump (principal); E11.621 Type 2 diabetes mellitus with foot ulcer; L97.412 Non-pressure chronic ulcer of right heel and midfoot with fat layer exposed; E11.42 Type 2 diabetes mellitus with diabetic polyneuropathy; E66.01 Morbid (severe) obesity due to excess calories; F32.9 Major depressive disorder, single episode, unspecified; F41.9 Anxiety disorder, unspecified; F17.200 Nicotine dependence, unspecified, uncomplicated; Z68.42 Body mass index [BMI] 45.0-49.9, adult; Y83.5 Amputation of limb(s) as the cause of abnormal reaction of the patient, or of later complication, without mention of misadventure at the time of the procedure

== ENCOUNTER → 2018-05-14 | Outpatient (CLI) | payer MEDICAID | LOC: M.WC 02:51 | DX: T87.89 Other complications of amputation stump (principal); E11.621 Type 2 diabetes mellitus with foot ulcer; L97.411 Non-pressure chronic ulcer of right heel and midfoot limited to breakdown of skin; L84 Corns and callosities; E11.42 Type 2 diabetes mellitus with diabetic polyneuropathy; E66.01 Morbid (severe) obesity due to excess calories; F41.9 Anxiety disorder, unspecified; F17.200 Nicotine dependence, unspecified, uncomplicated; F31.9 Bipolar disorder, unspecified; Z68.42 Body mass index [BMI] 45.0-49.9, adult; Y83.5 Amputation of limb(s) as the cause of abnormal reaction of the patient, or of later complication, without mention of misadventure at the time of the procedure ==

== ENCOUNTER 2018-05-26 06:44 | Inpatient (IN) | payer MEDICAID ==
[~2018-05-26] VITALS: Ht 190.5 cm; Wt 189.4 kg
--- NOTE | ~2018-05-26 | CON ---
[address] [address] CONSULTATION Name: ANGEL LEE JR Room: [address] IN .R.#: [id number] Admission: 05/26/18 Attend Phys: Venancio Shetty MD Discharge: Date of : 87 Report #: [id number] THIS REPORT FOR: //name// CC: FRANCISCO physician/PCP Vneancio Shetty DATE OF SERVICE: 05/27/2018 CONSULTATION: INFECTIOUS DISEASES HISTORY OF PRESENT ILLNESS: The patient is a 32-year-old diabetic male who was admitted to the hospital for a semi-elective transmetatarsal amputation, right foot. The patient had a transmetatarsal amputation previously on the left foot. He had difficulty in healing this with tunneling and requiring prolonged IV antibiotic therapy. Wound to me was impeded by continued tobacco use, poor glycemic control and suspect lessen optimal offloading. The patient developed gangrene on the right foot and with infection. He went for an urgent transmetatarsal amputation performed yesterday by Dr. Ly. Infectious Disease consultation was requested to assist with evaluation and management. The patient had been on daptomycin for the last 5-6 weeks for the left side transmetatarsal amputation as well as on oral Bactrim. Infectious Disease consultation was requested to assist with further antibiotic suggestions. PAST MEDICAL HISTORY: Dominated for diabetes under poor control. The patient has secondary complications including peripheral artery disease, neuropathy and retinopathy. The patient is otherwise in good health. FAMILY HISTORY: Noncontributory. SOCIAL HISTORY: The patient lives with his girlfriend. He does smoke cigarettes, but plans to quit on 06/03/2018. His girlfriend also smokes. No history of alcohol. The patient is disabled by his medical problems. REVIEW OF SYSTEMS: Essentially unremarkable. The patient has very little pain. Denies fevers, chills, sweats. No head, neck, chest, GI or problems. No muscle aching. PHYSICAL EXAMINATION: GENERAL: The patient appears his stated age, alert, oriented, comfortable, not in any distress. VITAL SIGNS: Normal. The patient is afebrile. SKIN: Shows no rash or lesions. The foot is under surgical dressing and was not removed. ENT: Negative. HEART: Sounds normal. [place]: [place] [address] CONSULTATION Name: ANGEL LEE Room: [address]#: [id number] Admission: 05/26/18 Attend Phys: Venancio Shetty MD Discharge: Date of : 86 Report #: [id number] ABDOMEN: Massively obese, soft, not tender. EXTREMITIES: Diminished pulses. LABORATORY DATA: White count is 8.5, hemoglobin 9.6, platelets 350,000. Electrolytes normal, BUN 11, creatinine 0.8, glucose 252. Liver function tests were normal. Prealbumin was low at 11.7. Previous cultures from the left foot showed MRSA, Enterococcus and E. coli, sensitive to all antibiotics. IMPRESSION: Diabetic foot wound, now status post transmetatarsal amputation. The patient has bilateral transmetatarsal amputations. We will need to very carefully protect his feet with proper foot wear and offloading. I discussed with the patient tobacco use and diabetic foot wounds. I stressed him this would be a good time to start his tobacco abstinence rather than waiting until the first year as he has just had surgery and the hypoxia from carbon monoxide poisoning of tobacco would inhibit early wound healing, which could be critical. I also discussed possible hyperbaric oxygen treatments, which would be contraindicated if the patient continues to smoke. For now, we will continue the patient on daptomycin as we have been doing. We will use Rocephin for gram-negative coverage. Continue wound care per Dr. Ly. I would like to check TSH, prealbumin and zinc. We will have the dietitian see if she can assist with protein supplements including increased protein and Luisito to try to facilitate wound healing. Dr. Cuadra will return tomorrow. By: 1511 1703Tarun Kim MD /ninoska
[2018-05-26] MEDS ORDERED: CELEXA40 MG PO (07:12)
[2018-05-26] MEDS ORDERED: SEROQUEL 50 MG50 MG PO (07:12)
[2018-05-26 07:20] LABS: HEMATOCRIT 34.5 % (42.0-52.0); MCH 24.1 pg (26.0-34.0); MCHC 31.8 g/dL (28.0-37.0); MCV 75.8 fL (80.0-100.0); MPV 7.6 fl. (7.2-11.1); RBC 4.55 mil/uL (4.50-6.00); RDW-CV 15.2 % (10.5-14.5); WBC 11.4 thou/uL (4.0-11.0)
[2018-05-26 07:32] LABS: CALCIUM 8.6 mg/dL (8.5-10.1); CREATININE 0.9 mg/dL (0.6-1.3); POTASSIUM 3.8 mmol/L (3.5-5.1)
[2018-05-26 07:36] LABS: ALBUMIN 2.2 g/dL (3.4-5.0); TOTAL BILIRUBIN 0.3 mg/dL (<0.1-1.0); TOTAL PROTEIN 7.4 g/dL (6.4-8.2)
[2018-05-26 14:05] VITALS: BP 129/78
--- NOTE | 2018-05-26 18:51 | NUR ---
PATIENT RESTING IN BED. PATIENT HAS COMPLAINTS OF PAIN TO RIGHT FOOT WITH ADEQUATE RELIEF WITH MORPHINE AND HYDROCODONE. PATIENT HAS RIGHT FOOT ELEVATED. DRESSING IS CLEAN/DRY/INTACT. PATIENT HAS WALKER IN ROOM TO MAINTAIN NON-WEIGHT BEARING STATUS. PATIENT HAS GOOD APPETITE. PATIENT DENIES ANY NEEDS AT THIS TIME. CALL LIGHT WITHIN REACH. WILL CONTINUE TO MONITOR.
[2018-05-26 21:30] VITALS: BP 141/78
[2018-05-27 00:20] VITALS: BP 129/64
--- NOTE | 2018-05-27 05:07 | NUR ---
PT SLEPT WELL OVERNIGHT. RECEIVING IV PAIN MED FOR CO RFOOT PAIN WITH GOOD RESULT. BULKY DEWEY WRAP SURGICAL DRSG CDI TO R FOOT. HS ACCUCHECK 239, INSULIN GIVEN. VSS. AM LABS. ABX GIVEN HAILEE PICC ORDERED. USING URINAL TO VOID. ABLE TO USE CALL LITE AND MAKE NEEDS KNOWN.
[2018-05-27 06:40] VITALS: BP 129/75
[2018-05-27 08:45] VITALS: BP 136/83
[2018-05-27 12:46] VITALS: BP 136/83
--- NOTE | 2018-05-27 16:25 | NUR ---
DRESSING CHANGED THIS AM BY DR. MONTALVO. DR. TUCKER FROM ID HERE THIS AFTERNOON AND PATIENT TO BE PLACED IN ISOLATION. CEFTRIAXONE ADDED TO REGIME BY ID ALSO. INSULIN GIVEN WITH MEALS, UNITS PER PATIENT REQUEST AND ORDER CLEARED BY DR. GROVES. PICC LINE DRESSING CHANGED THIS SHIFT. PRN VICODIN GIVEN X 2 FOR RIGHT FOOT PAIN WITH GOOD RELIEF NOTED. PRN MORPHINE GIVEN X 1 WITH AM DRESSING CHANGE.
[2018-05-27 16:32] VITALS: BP 142/90
[2018-05-28] VITALS: BP 130/79
--- NOTE | 2018-05-28 07:50 | NUR ---
PATIENT SLEPT MOST OF THE NIGHT. DRESSING TO RIGHT FOOT REMAINS DRY AND INTACT. PATIENT WAS GIVEN PAIN MEDICINE ONCE. WILL CONTINUE TO MONITOR.
[2018-05-28 08:15] VITALS: BP 131/69
--- NOTE | 2018-05-28 10:37 | NUR ---
Nutrition: Consult for Luisito needed. Pt sees wound care. Admitted with osteomyelitis. H/o DM on insulin. Wt: 417#. Good appetite. CHO controlled diet. Albumin 1.8, prealb 11.9, BG 200s. RD ordered Luisito b.i.d. Mild to moderate risk at this time. Will follow up 06/02/18.
--- NOTE | 2018-05-28 13:25 | CON ---
[address] [address] CONSULTATION Name: ANGEL LEE JR Room: [address] ADM IN .R.#: [id number] Admission: 05/26/18 Attend Phys: Venancio Shetty MD Discharge: Date of : 86 Report #: [id number] THIS REPORT FOR: //name// CC: [facility] physician/PCP Venancio Shetty DATE OF SERVICE: 05/27/2018 CHIEF COMPLAINT: Status post tarsal bone resection from right foot with primary closure over with a drain x 1 day. HISTORY OF PRESENT ILLNESS: He is on parenteral daptomycin and oral Bactrim with tolerance. He has been afebrile, appetite stable. Surgical bone and tissue culture is pending. Yesterday, I found abscess throughout the dorsal to dorsal lateral foot, and I resected the remaining bases of the second, third, fourth and fifth metatarsals in addition to the medial, intermediate and lateral cuneiforms and cuboid. 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 He relates mild to moderate pain controlled with medication. LABORATORY DATA: WBC 8.5, RBC 4.01, hemoglobin 9.6, hematocrit 30.6, platelets 350. BUN 11, creatinine 0.8, glucose 282, albumin 1.9. PHYSICAL EXAMINATION: Right foot surgical incision well approximated with no dehiscence, no pallor, cyanosis, fluctuance or crepitation. Some sanguinous drainage in his bandage with no active bleeding. Immediate oswaldo-incisional capillary refill noted. Remaining foot is in equinus contracture. No Homans' or Puente sign to either extremity. No jigna cellulitis noted. IMPRESSION: Status post tarsal bone resection with osteomyelitis and abscess complicated by diabetes mellitus. PLAN: The Nu Gauze with packing was removed and replaced with an Aquacel Ag packing strip. The incision was cleansed and dressed with ABDs, Kerlix, and Shahab bandage. The patient to remain nonweightbearing. I had a jigna discussion with the patient, explained that he would likely be better off with a below-knee amputation and prosthesis. In order for the Syme's amputation to work to be viable, he would require patellar tendon bracing and Achilles tendon lengthening for best offloading. The patient says he is not mentally ready for a below-knee amputation, and wants to proceed as an outpatient and see if the remaining foot incision heals. I think this is reasonable, as long as [place] [address] CONSULTATION Name: ANGEL ELE Room: [address] IN M.R.#: [id number] Admission: 05/26/18 Attend Phys: Venancio Shetty MD Discharge: Date of : 87 Report #: [id number] of skin and tissue breakdown when he does start weightbearing. I will follow up with the patient tomorrow. <ELECTRONICALLY SIGNED> By: Ford Ly DPM 05/28/18 1325 1054 [id number] Ly DPM /nt
--- NOTE | 2018-05-28 13:25 | CON ---
[address] [address] CONSULTATION Name: ANGEL LEE JR Room: [address] IN .R.#: [id number] Admission: 05/26/18 Attend Phys: Venancio Shetty MD Discharge: Date of : 87 Report #: [id number] THIS REPORT FOR: //name// CC: [facility] physician/PCP Venancio Shetty DATE OF SERVICE: 05/28/2018 CHIEF COMPLAINT: Postoperative day #2 for a tarsal bone resection with incision and drainage to right foot. HISTORY OF PRESENT ILLNESS: He is on parenteral daptomycin and oral Bactrim. Surgical bone and tissue cultures are pending. Prior outpatient cultures grew MRSA, E. coli and Enterococcus faecalis. He has been afebrile, good appetite, pain better controlled. I previously recommended a below-knee amputation to him, and he is considering this. I suggest he speak with Vascular Surgery to discuss the process, even if he does not pursue surgery at present. LABORATORY DATA: WBC 8.5, RBC 4.04, hemoglobin 9.8, hematocrit 31.1, platelets 376. BUN 12, creatinine 0.8, glucose 220. PHYSICAL EXAMINATION: Incisions are well coapted with some maceration along the medial aspect. Inflammation along the incision, no active bleeding. Sanguinous drainage in his bandage. No pallor, cyanosis or signs of acute vascular embarrassment. Negative Homans' and Puente sign to both legs. No right popliteal adenopathy. IMPRESSION: Osteomyelitis, status post right foot amputation and type 2 diabetes mellitus with peripheral neuropathy. PLAN: The incision was cleansed and the wound was repacked with Aquacel Ag, covered with Aquacel Ag, ABDs, Kerlix, and Shahab. I consulted Vascular Surgery to discuss possible BK amputation with the patient. We will follow up during his hospitalization. <ELECTRONICALLY SIGNED> By: Ford Ly DPM 05/28/18 1325 0914 [id number] Ly DPM /ninoska
--- NOTE | 2018-05-28 13:25 | OP ---
[address] [address] OPERATIVE REPORT Name: ANGEL LEE JR Room: [address] IN .R.#: [id number] Admission: 05/26/18 Attend Phys: Venancio Shetty MD Discharge: Date of : 87 Report #: [id number] THIS REPORT FOR: //name// CC: Ford SINGH physician/PCP DATE OF SERVICE: 05/26/2018 SURGEON: Ford Ly DPM PREOPERATIVE DIAGNOSES: Deep tissue infection with likely osteomyelitis, right foot. POSTOPERATIVE DIAGNOSES: Deep tissue infection with likely osteomyelitis, right foot. PROCEDURE: 1. Incision and drainage, right foot. 2. Resection of right tarsal bones to include medial cuneiform and bases of the second, third, fourth and fifth metatarsals with their associated cuneiforms and the cuboid. ANESTHESIA: General LMA. INJECTABLES: Roughly 12 mL of a 1:1 mixture of 0.5% Marcaine plain and 1% lidocaine plain preoperatively. HEMOSTASIS: Right ankle pneumatic tourniquet at 275 mmHg. SPECIMENS: Bone, right medial, middle and lateral cuneiforms, cuboid and bases of the second, third, fourth and fifth metatarsals. CULTURES: 1. Bone, aerobic and anaerobic. 2. Soft tissue, aerobic and anaerobic. SUTURES: 2-0 nylon. ESTIMATED BLOOD LOSS: Roughly 3 mL. COMPLICATIONS: None. DESCRIPTION OF PROCEDURE: The patient was brought to the OR and placed on the table supine with induction of general LMA anesthesia. A well-padded right ankle pneumatic tourniquet was placed. A local anesthetic block was given over the dorsal mid foot proximal to the surgical incision. The extremity was [facility] [address] [id number] OPERATIVE REPORT Name: ANGEL LEE JR Room: [address] IN ..#: [id number] Admission: 05/26/18 Attend Phys: Venancio Shetty MD Discharge: Date of : 87 Report #: [id number] prepped and draped aseptically and exsanguinated with inflation of the tourniquet. #10 blade was used to create a fish mouth type incision over the distal amputation stump, and the dorsal and plantar tissue flaps were mobilized. A sharp and blunt dissection carried down to the bases of the underlying tarsal bones and metatarsal bases. Electrocautery was utilized for hemostasis during the procedure. There was a pocket of purulence drained from the lateral fourth and fifth metatarsal cuboid joint region. Several mL of purulence were expressed and evacuated. There is also some milky purulence over the dorsal aspect of the medial and middle cuneiform. There was some bone destruction noted at the distal aspect of the medial cuneiform. Fluoroscopy was utilized and the remaining metatarsal bases as well as the three cuneiforms and cuboid bone were disarticulated. The tendons and soft tissue were debrided intraoperatively and the wound was pulse lavaged with 3 liters of sterile saline with 150,000 units of bacitracin. The skin margins were remodeled to facilitate closure. The skin flaps were closed with 2-0 nylon in simple interrupted fashion. The wound was packed with half inch plain Nu Gauze. The foot was cleansed and dried, and the tourniquet was deflated with neurovascular return. Sterile compressive bandage with Betadine-soaked Adaptic, fluffs, ABDs, Kerlix and Shahab bandage were applied. The patient left the OR with no complications and will be admitted to the hospital. <ELECTRONICALLY SIGNED> By: Ford Ly DPM 05/28/18 1325 1201 [id number] Ly DPM /nt
--- NOTE | 2018-05-28 14:31 | NUR ---
SPOKE TO THE PATIENT TO DISCUSS HIS HOME SITUATION, DISCHARGE PLANNING, AND TO INFORM OF THE ROLE OF CM. PATIENT ALERT AND ORIENTED. PATIENT RESIDES AT HOME WITH SIGNIFICANT OTHER. PATIENT USES A WALKER OR CANE FOR MOBILIY. PATIENT IS CURRENTLY ON-SERVICE WITH [facility] FOR HH, AND [facility] FOR IV ABT INFUSIONS. PATIENT IS ALSO CURRENTLY A PATIENT IN [facility]S WOUND [facility]. PATIENT INFORMS THAT HE HOPES TO RESUME HH WITH [facility] AT D/C, AND [facility] IF IV ABT'S ARE NEEDED. D/C PROPERTY CONTROLLER SPOKE TO CATHY WITH [facility] TO INFORM OF THE PATIENT'S ADMISSION AND SHE INFORMS THAT [facility] WILL AWAIT ORDERS TO RESUME HH AT D/C. CM WILL REMAIN AVIALBLE TO ASSIST AND FOLLOW NEEDED.
[2018-05-28 16:36] VITALS: BP 113/58
--- NOTE | 2018-05-28 16:40 | NUR ---
PT REMAINED ALERT AND ORIENTED THIS SHIFT. PT HAD RT FOOT DRESSING CHANGED TODAY BY DR. MONTALVO. BLOOD SUGARS HAVE BEEN IN 200'S, INSULIN GIVEN, PT REQUESTED CERTAIN DOSAGES BASED OFF OF HOME SCALE. PT PICC DRESSING CHANGED TODAY AFTER CAME LOOSE WITH SHOWERS. PT C/O PAIN, HYDROCODONE AND MORPHINE GIVEN ORDERED. FALL RISK PRECAUTIONS IN PLACE. HOURLY ROUNDING COMPLETED. WILL CONTINUE TO MONITOR.
[2018-05-28 20:50] VITALS: BP 143/92
[2018-05-29 06:40] LABS: HEMATOCRIT 29.9 % (42.0-52.0); HEMOGLOBIN 9.6 gm/dL (14.0-18.0); MCH 24.4 pg (26.0-34.0); MCHC 32.1 g/dL (28.0-37.0); MCV 76.2 fL (80.0-100.0); MPV 7.4 fl. (7.2-11.1); RBC 3.92 mil/uL (4.50-6.00); RDW-CV 15.3 % (10.5-14.5); WBC 7.6 thou/uL (4.0-11.0)
[2018-05-29 07:11] LABS: CALCIUM 8.3 mg/dL (8.5-10.1); CREATININE 0.8 mg/dL (0.6-1.3); MAGNESIUM 1.8 mg/dL (1.8-2.4); POTASSIUM 3.8 mmol/L (3.5-5.1); TOTAL BILIRUBIN 0.3 mg/dL (<0.1-1.0); TOTAL PROTEIN 6.6 g/dL (6.4-8.2)
[2018-05-29 07:55] VITALS: BP 145/72
[2018-05-29] MEDS ORDERED: PROZAC20 MG PO (14:53)
[2018-05-29] MEDS ORDERED: NICOTINE TRANSD21 M1 (14:54)
[2018-05-29 14:59] VITALS: BP 136/83
[2018-05-29 15:06] VITALS: BP 136/83
--- NOTE | 2018-05-29 15:24 | NUR ---
MANAGER SEARCH INFORMED THAT THE PATIENT WOULD D/C HOME TODAY WITH HH AND CONTINUE IV ABT'S AT HOME. D/C LEATHER STITCHER SPOKE TO CATHY WITH [facility] TO INFORM OF THE NEED TO RESUME HH, AND FAXED THE PATIENT'S FACESHEET, H&P, D/C SUMMARY, D/C ORDERS, ABT AND WOUND CARE ORDERS TO [facility]. [facility] TO CONTACT THE PATIENT TO ARRANGE A TIME TO VISIT. D/C LEATHER STITCHER ALSO SPOKE TO CHRISTIANE DOMINGUEZ TO INFORM OF THE NEED TO RESUME IV ABT'S AT HOME FOR THE PATIENT, AND FAXED THE PATIENT'S FACESHEET AND ABT ORDER TO ANGELICA. CM WILL REMAIN AVIALABLE TO ASSIST AND FOLLOW NEEDED.
--- NOTE | 2018-05-29 16:56 | NUR ---
PATIENT A&OX4, ROOM AIR, RIGHT UPPER PICC SINGLE LUMEN, SALINE LOCK WITH IV ABX. NON WEIGHT BEARING TO RIGHT FOOT, NON COMPLIANT. C/O PAIN, RELIEF WITH MEDICATION. DRESSING TO RIGHT FOOT CHANGED BY PHYSICIAN. AT DISCHARGE RENZO C/D/I. REVIEWED DISCHARGE PAPERWORK, SPOUSE AT BEDSIDE. VERBALIZES UNDERSTANDING, ALL QUESTIONS AND CONCERNS ANSWERED. NO FURTHER QUESTIONS AT THIS TIME. APPROPRIATE AND COOPORATIVE WITH CARE. PATIENT LEFT UNIT AT 1640 VIA W/C WITH SPOUSE, ALL BELONGINGS TAKEN WITH, NOTHING LEFT BEHIND.
--- NOTE | 2018-05-30 13:06 | PATH ---
[address] [address] PATHOLOGY RPT PROCEDURE Name: ANGEL LEE Room: [address] IN .R.#: [id number] Admission: 05/26/18 Date of : 87 Discharge: 05/29/18 Report #: [id number] Path Case #: [id number] [facility] Accession Number: [id number] . 01 Material submitted: . PART A: METATARSAL BASE 2,3 CUNEIFORMS RIGHT FOOT PART B: CUBOID 4TH AND 5TH METATARSAL BASE RIGHT FOOT . 01 Clinical history: . Right foot abscess . 02 Diagnosis: A. Bone, "metatarsal base 2,3 cuneiforms right foot", removal: - Portions of bone with focal acute osteomyelitis. . B. "Cuboid fourth and fifth metatarsal base right foot", removal: - Portions of bone with focal acute osteomyelitis. (JUMA/jarrett; 05/29/2018) LBQ/05/29/2018 . 02 Electronically signed: . Maury Workman MD, Pathologist NPI- [id number] . 01 Gross description: . A. The specimen is received in formalin, labeled "Angel Lee Jr., metatarsal base 2, 3 cuneiforms right foot". Received are four segments of bone ranging in size from 3.5 x 2.5 x 2.0 to 5.6 x 3.1 x 2.7 cm in greatest dimensions. Each segment displays a distinct smooth, slightly concave articular surface. Each of these surfaces are differentially inked black, blue, yellow, and red. A player services representative full-thickness cross-section from each segment is submitted in cassettes A1 through A4, following decalcification. . B. The specimen is received in formalin, labeled "Angel Lee Jr., cuboid fourth and fifth metatarsal base right foot". Received are two segments of bone measuring 1.1 x 3.2 x 3.0 and 5.5 x 4.7 x 4.0 cm in greatest dimensions. Each segment displays two smooth, slightly concave articular surfaces. Each surface is differentially inked black, blue, yellow, and red. Academic Services Professional full-thickness cross sections from each segment are submitted in cassettes B1 through B7, with segments in all cassettes, except B3, additionally bisected, following decalcification. (CAA; 05/28/2018) QAC/QAC . 02 Pathologist provided ICD-10: M86.171 . 02 [place] [address] PATHOLOGY RPT PROCEDURE Name: ANGEL LEE JR Room: [address] DIS IN M.R.#: [id number] Admission: 05/26/18 Date of : 87 Discharge: 05/29/18 Report #: [id number] Path Case #: [id number] CPT . 691229, [id number], [id number], [id number] Specimen Comment: A courtesy copy of this report has been sent to Specimen Comment: [phone]. Specimen Comment: Report sent to Performed at: [address] [facility] [address], [place], [place] [id number] MD René Arcos MD Phone: [phone] Performed at: [address] [facility] [address], [place], [place] [id number] MD Lefty Valerio MD Phone: [phone]
== END 2018-05-29 16:40 | disposition home health service (06) | DRG 616 ==
LOC: M.SUR 06:44 → M.3W 13:13
PROVIDERS: Family Medicine; Podiatrist Foot & Ankle Surgery
PROC: 0Y6M0ZC Detachment at Right Foot, Partial 3rd Ray, Open Approach (ICD-10-PCS; principal; 2018-05-26)
PROC: 0QBL0ZZ Excision of Right Tarsal, Open Approach (ICD-10-PCS; principal; 2018-05-26)
PROC: 0Y6M0ZB Detachment at Right Foot, Partial 2nd Ray, Open Approach (ICD-10-PCS; principal; 2018-05-26)
PROC: 0Y6M0ZF Detachment at Right Foot, Partial 5th Ray, Open Approach (ICD-10-PCS; principal; 2018-05-26)
PROC: 0Y6M0ZD Detachment at Right Foot, Partial 4th Ray, Open Approach (ICD-10-PCS; principal; 2018-05-26)
PROC: 05HY33Z Insertion of Infusion Device into Upper Vein, Percutaneous Approach (ICD-10-PCS; 2018-05-28)
DX: E11.69 Type 2 diabetes mellitus with other specified complication (principal); E43 Unspecified severe protein-calorie malnutrition; M86.8X7 Other osteomyelitis, ankle and foot; Z68.43 Body mass index [BMI] 50.0-59.9, adult; E11.51 Type 2 diabetes mellitus with diabetic peripheral angiopathy without gangrene; E11.40 Type 2 diabetes mellitus with diabetic neuropathy, unspecified; E11.319 Type 2 diabetes mellitus with unspecified diabetic retinopathy without macular edema; E66.01 Morbid (severe) obesity due to excess calories; F32.9 Major depressive disorder, single episode, unspecified; G89.29 Other chronic pain; D50.9 Iron deficiency anemia, unspecified; Z79.82 Long term (current) use of aspirin; Z79.899 Other long term (current) drug therapy; Z89.421 Acquired absence of other right toe(s)

== ENCOUNTER → 2018-06-04 | Outpatient (CLI) | payer MEDICAID ==
[~2018-06-04] MED LIST changes: +CELEXA40 MG PO; +NICOTINE TRANSD21 M1; +SEROQUEL 50 MG50 MG PO
--- NOTE | 2018-06-05 12:46 | CON ---
[address] [address] CONSULTATION Name: ANGEL LEE JR Room: [facility].#: [id number] Admission: 06/04/18 Attend Phys: Ford Ly DPM Discharge: Date of : 87 Report #: [id number] THIS REPORT FOR: //name// CC: Pato Cuadra DATE OF SERVICE: 06/04/2018 INFECTIOUS DISEASE CONSULTATION ATTENDING PHYSICIAN: Ford Ly DPM. HISTORY OF PRESENT ILLNESS: He is here for right foot wound. He is status post transmetatarsal amputation with followup more extensive osteoectomy, including the cuboid. He had been recently hospitalized and was discharged and had complete dehiscence of the wound at this point. He denies significant systemic illness. On review of cultures, he did have MRSA, which he has had previously in the tissue operative culture, although the bone was sterile. He has currently been on daptomycin and Bactrim based on previous cultures, including the MRSA as well as Escherichia coli and Enterococcus. After discussion with Dr. Ly, the patient is ready to proceed with [id number] amputation. He is scheduled to see Vascular Surgery in followup. He would prefer oral antibiotics, although on review of the most recent culture, limited options including linezolid, although he is on medicines that may cause significant drug-drug interactions. We will continue on the daptomycin for now in the interval prior to the [id number] amputation and check weekly labs. <ELECTRONICALLY SIGNED> By: Casimiro Cuadra MD 06/05/18 1246 0839 [id number] Cuadra MD /nt
== END ==
LOC: M.WC 13:40
DX: T81.89XD Other complications of procedures, not elsewhere classified, subsequent encounter (principal); E11.621 Type 2 diabetes mellitus with foot ulcer; L97.411 Non-pressure chronic ulcer of right heel and midfoot limited to breakdown of skin; L84 Corns and callosities; E11.42 Type 2 diabetes mellitus with diabetic polyneuropathy; E66.01 Morbid (severe) obesity due to excess calories; F31.9 Bipolar disorder, unspecified; F41.9 Anxiety disorder, unspecified; F17.200 Nicotine dependence, unspecified, uncomplicated; Z68.42 Body mass index [BMI] 45.0-49.9, adult

== ENCOUNTER 2018-06-11 06:29 | Inpatient (IN) | payer MEDICAID ==
[~2018-06-11] VITALS: Ht 188 cm; Wt 187.8 kg
[2018-06-11 11:00] VITALS: BP 128/77
[2018-06-11 11:10] LABS: ABSOLUTE EOSINOPHILS 0.4 thou/uL (0.0-0.7); ABSOLUTE LYMPHOCYTES 1.3 thou/uL (0.8-5.3); ABSOLUTE MONOCYTES 0.8 thou/uL (0.0-1.2); ABSOLUTE NEUTROPHILS 7.5 thou/uL (1.6-8.1); BASOPHILS 0.2 %; HEMATOCRIT 34.8 % (42.0-52.0); LYMPHOCYTES 12.9 %; MCH 24.1 pg (26.0-34.0); MCHC 31.6 g/dL (28.0-37.0); MCV 76.3 fL (80.0-100.0); MONOCYTES 8.1 %; MPV 7.6 fl. (7.2-11.1); NUCLEATED RBCS 0 /100WBC; PLATELET COUNT* 369 thou/uL (150-400); POLYS 74.8 %; RBC 4.57 mil/uL (4.50-6.00); RDW-CV 16.3 % (10.5-14.5)
[2018-06-11 11:16] LABS: CREATININE 0.9 mg/dL (0.6-1.3); POTASSIUM 3.9 mmol/L (3.5-5.1)
--- NOTE | 2018-06-11 18:42 | NUR ---
PATIENT ARRIVED ON UNIT AT 1650 POST SURGERY, REPORT FROM EYAL AT BEDSIDE. A&OX4, DROWSEY, 2L O2 VIA NC, CONTINOUS ENTITTLE. RIGHT UPPER ARM PICC SINGLE LUMEN FLUIDS INFUSSING, LEVER MILLER PUMP. C/O PAIN, NOT MANAGED THROUGH LEVER MILLER PUMP, EDUCATED ON WHY AND HOW LONG HE MIGHT HAVE PAIN. NO OTHER CONCERNS AT THIS TIME. APPROPRIATE AND COOPORATIVE WITH CARE.
[2018-06-11 20:00] VITALS: BP 146/81
[2018-06-12] VITALS: BP 148/73
[2018-06-12 03:48] VITALS: BP 134/83
[2018-06-12 04:57] LABS: HEMATOCRIT 27.1 % (42.0-52.0); MCH 23.9 pg (26.0-34.0); MCHC 31.4 g/dL (28.0-37.0); MCV 76.2 fL (80.0-100.0); MPV 8.1 fl. (7.2-11.1); NUCLEATED RBCS 0 /100WBC; PLATELET COUNT* 398 thou/uL (150-400); RBC 3.55 mil/uL (4.50-6.00); RDW-CV 16.4 % (10.5-14.5)
[2018-06-12 05:03] LABS: HEMOGLOBIN 8.5 gm/dL (14.0-18.0)
[2018-06-12 05:09] LABS: CALCIUM 8.1 mg/dL (8.5-10.1); CREATININE 0.9 mg/dL (0.6-1.3); POTASSIUM 4.4 mmol/L (3.5-5.1)
[2018-06-12 05:31] LABS: ABSOLUTE BASOPHILS 0.2 thou/uL (0.0-0.2); ABSOLUTE MONOCYTES 0.9 thou/uL (0.0-1.2)
[2018-06-12 05:32] LABS: ANISOCYTOSIS 1+; PLATELET ESTIMATE ADEQUATE; POIKILOCYTOSIS 1+
--- NOTE | 2018-06-12 06:16 | NUR ---
PT SLEPT ON AND OFF THIS SHIFT. ASSESSMENT DOCUMENTED. MEDS GIVEN PER E-MAR. PICC PATENT, FLUIDS INFUSING. YARD STOCKER PUMP IN PLACE WITH SOME RELIEF OF PAIN. TELE MONTIOR IN PLACE READING ST, HEART RATES FROM 110'S TO 140'S THIS SHIFT. IMMOBILZER IN PLACE. PT KEPT HITTING BUTTONS OF CAPNO, PT EDUCATED TO NOT DO THAT, PT STATED UNDERSTANDING, BUT THAT HE COULDN'T DEAL WITH THE NOISE SO HE WAS GOING TO MAKE IT STOP. WILL CONTINUE WITH PLAN OF CARE.
[2018-06-12 08:00] VITALS: BP 114/71
[2018-06-12 12:00] VITALS: BP 140/65
--- NOTE | 2018-06-12 12:07 | NUR ---
PHYSICAL THERAPY EVALUATION COMPLETED, PT. REFUSING TO STAND WITH THERAPY UNTIL "PAIN MEDICATIONS ARE ADJUSTED". PER MIAH WITH VASCULAR, PT. MAY REMOVE R KNEE IMMOBILIZER WITH PHYSICAL THERAPY ONLY. REQUEST MADE BY THERAPIST TO PHYSICIAN/MIAH REQUESTING UPDATED ACTIVITY ORDER BE ENTERED SPECIFYING REMOVAL OF R KNEE IMMOBILIZER WITH PHYSICAL THERAPY ONLY. PT. RESIDES IN HOUSE WITH SIG OTHER, 6 STEPS WITH SINGLE (UNSTEADY) HANDRAIL ASCENDING RIGHT SIDE TO ACCESS HOME. PT. CURRENTLY OWNS KNEE SCOOTER BUT MAY NOT BE ALLOWED TO USE UNLESS APPROVED BY SURGEON ONCE D/C'D TO HOME. PT. HAD A SPC BUT NO WALKER OR CRUTCHES. THERAPIST SPOKE TO PT. IN DEPTH REGARDING SAFETY OF WALKER VERSUS CRUTCHES. PT. MAY NEED A BARIATRIC FRONT WHEELED WALKER AT D/C FOR SAFE MOBILITY UNTIL CLEARED TO USE KNEE SCOOTER. PT. MAY ALSO BENEFIT FROM CONTINUED THERAPIES AT HOME FOR MAXIMAL SAFETY W/ MOBILITY IN THE HOME, ACCESS TO THE HOME W/ STEP MGMT AND MGMT OF RIGHT RESIDUAL LIMB IN PREP FOR PROSTHESIS. P.T. WILL CONTINUE TO WORK WITH PT. WHILE HOSPITALIZED TO PROMOTE SAFETY WITH MOBLITY AND MAKE PROPER DME RECOMMENDATIONS FOR SAFE D/C TO HOME. THANK YOU FOR THIS REFERRAL. MARZENA MCKEON DPT.
[2018-06-12 16:00] VITALS: BP 141/76
--- NOTE | 2018-06-12 17:49 | NUR ---
PATIENT HAS BEEN ALERT AND ORIENTED TODAY, VITAL SIGNS STABLE ON 3 LITERS OF OXYGEN WITH CAPNO IN PLACE DUE TO FIRE POT OPERATOR PUMP. PATIENT IS HAVING PAIN CONTROL ISSUES EVEN WITH PUMP. IMMOBILIZER IN PLACE ON RIGHT LEG. PICC LINE DRESSING CHANGED TODAY AND REINFORCED TODAY. CALL LIGHT IS IN REACH WILL CONTINUE TO MONITOR.
[2018-06-13] VITALS (7 sets, daily range): BP systolic 117–149; BP diastolic 44–72
[2018-06-13 05:31] LABS: HEMATOCRIT 20.8 % (42.0-52.0); MCH 24.2 pg (26.0-34.0); MCHC 31.7 g/dL (28.0-37.0); MCV 76.2 fL (80.0-100.0); MPV 7.4 fl. (7.2-11.1); RBC 2.72 mil/uL (4.50-6.00); RDW-CV 16.7 % (10.5-14.5); WBC 12.2 thou/uL (4.0-11.0)
--- NOTE | 2018-06-13 05:32 | NUR ---
PATIENT SLEPT WELL DURING THIS SHIFT. PT WITH IMMOBILIZER ON LT LEG; LEG ELEVATED. PT WITH MORPHINE VP SITE PUMP INFUSING. MORPHINE 38ML INFUSED DURING THIS SHIFT. PT IS TACHYCARDIAC ON MONITOR. PT REFUSED TO TURN DURING THIS SHIFT BUT IS ABLE TO REPOSITION HIMSELF IN BED. PT VOIDS DARK YELLOW URINE. PT WITH O2 @ 3 LITERS WITH CAPNO. CAPNO ALARMED EARLY IN SHIFT. FREQUENTLY USED ITEMS AND CALL LIGHT WITHIN REACH. SIDERAILS UPX3. PT REMAINS IN CONTACT ISOLATION. WILL CONTINUE TO MONITOR.
[2018-06-13 05:38] LABS: HEMOGLOBIN 6.6 gm/dL (14.0-18.0)
[2018-06-13 05:43] LABS: CALCIUM 8.3 mg/dL (8.5-10.1); CREATININE 0.7 mg/dL (0.6-1.3); MAGNESIUM 1.6 mg/dL (1.8-2.4); POTASSIUM 4.3 mmol/L (3.5-5.1)
--- NOTE | 2018-06-13 12:04 | OP ---
[address] [address] OPERATIVE REPORT Name: ANGEL LEE JR Room: [address] IN .#: [id number] Admission: 06/11/18 Attend Phys: Ngozi Browne Discharge: Date of : 87 Report #: [id number] THIS REPORT FOR: //name// CC: Pato Fuller DATE OF SERVICE: 06/11/2018 PREOPERATIVE DIAGNOSIS: Diabetic foot wound with nonhealing transmetatarsal amputation. POSTOPERATIVE DIAGNOSIS: Diabetic foot wound with nonhealing transmetatarsal amputation. OPERATION: Right below knee amputation. SURGEON: Jiaron Gaytan DO PATIENT CARE ASSISTANT: Wes Ramirez, PGY-2. ANESTHESIA: General. ESTIMATED BLOOD LOSS: 600 mL FLUIDS: 1200 mL crystalloid. URINE OUTPUT: None. SPECIMENS: Right lower leg. FINDINGS: He had excellent bleeding at the amputation level. This came together with some slight tension, but overall good reapproximation. CLINICAL HISTORY: The patient is a 32-year-old man with uncontrolled diabetes who has had multiple foot surgeries for nonhealing diabetic foot wounds. He presents today with a nonhealing transmetatarsal amputation with persistent osteomyelitis. He was recommended by Podiatry for below knee amputation, he is here for that today. DETAILS OF PROCEDURE: After informed consent was obtained, the patient taken to the operating room and placed on the OR bed in supine position. He was administered general anesthesia by Anesthesia team. Right lower extremity was circumferentially prepped and draped in the usual [place] [address] OPERATIVE REPORT Name: ANGEL LEE JR Room: [address] IN [facility].#: [id number] Admission: 06/11/18 Attend Phys: Ngozi Browne Discharge: Date of : 87 Report #: [id number] time-out was performed identifying correct patient and procedure. Next, a skin incision was made about 3-4 fingerbreadths below the tibial tuberosity. Dissection was carried down through skin and subcutaneous tissue with both sharp and electrocautery. The fascia was divided and the muscular compartments were then divided with electrocautery as well. The anterior tibial neurovascular bundle was ligated with 2-0 silk ties. The tibia and the fibula were circumferentially dissected free and then transected these with an oscillating bone saw, then transected the fibula about a centimeter more proximal to the tibia. Beveled the anterior edge of the tibia. I then used the amputation knife to complete the posterior flap and transect the leg. I debulked the gastrocnemius muscle once hemostasis was ensured in the wound after ligating multiple bleeders with a 3-0 silk suture ligatures and electrocautery. The wound was irrigated with antibiotic solution. The wound was then closed in multiple layers with 0 Vicryl and 2-0 Vicryl and justyn in the skin. A sterile dressing was applied. All sponge, sharp and instrument counts reported as correct x 2. He tolerated the procedure well and was transferred to recovery area in a stable condition. <ELECTRONICALLY SIGNED> By: Jairon Gaytan DO 06/13/18 1204 1423 [id number] Gaytan DO /nt
--- NOTE | 2018-06-13 16:10 | NUR ---
Pt known to SW due to pt previous admissions. Pt lives at home with significant other. Pt active with [facility] HH services and goes to [facility] wound care clinic as needed. Pt has hx with [facility] for IV abx. Pt has a RW and a cane if needed. SW to continue to follow to assist with safe dc planning.
[2018-06-13 17:00] LABS: HEMATOCRIT 21.4 % (42.0-52.0)
[2018-06-13 17:13] LABS: HEMOGLOBIN 6.9 gm/dL (14.0-18.0)
--- NOTE | 2018-06-13 18:15 | NUR ---
PATIENT HAS BEEN SLEPPING MOST OF THE DAY. PAIN LEVELS ARE STILL HIGH BUT HAVE BEEN MORE TOLERABLE PER PATIENT. UNIT OF BLOOD GIVEN TODAY AND HEMOGLOBIN IS STILL CRITICAL LOW, PROVIDER SAID WAIT AND REDRAW LABS IN THE MORNING. PATIENT WORKED WITH THERAPY TODAY AND DID WELL PER THERAPIST. VITAL SIGNS STABLE OTHER THAN BE TACHY. CALL LIGHT IS IN REACH, WILL CONTINUE TO MONITOR,
[2018-06-14 04:07] VITALS: BP 119/67
[2018-06-14 04:56] LABS: HEMATOCRIT 20.4 % (42.0-52.0); MCH 25.2 pg (26.0-34.0); MCHC 32.6 g/dL (28.0-37.0); MCV 77.4 fL (80.0-100.0); MPV 7.6 fl. (7.2-11.1); RBC 2.63 mil/uL (4.50-6.00); RDW-CV 16.6 % (10.5-14.5); WBC 9.8 thou/uL (4.0-11.0)
[2018-06-14 05:10] LABS: CALCIUM 8.2 mg/dL (8.5-10.1); CREATININE 0.6 mg/dL (0.6-1.3); MAGNESIUM 1.7 mg/dL (1.8-2.4); POTASSIUM 3.7 mmol/L (3.5-5.1)
[2018-06-14 05:11] LABS: HEMOGLOBIN 6.6 gm/dL (14.0-18.0)
--- NOTE | 2018-06-14 07:34 | NUR ---
PATIENT SLEPT MOST OF THE NIGHT. PATIENT REMAINS ON MORPHINE TRASH COLLECTOR TRUCK DRIVER PUMP. DRESSING TO RIGHT STUMP REMAINS C/D/I WITH IMMOBILIZER IN PLACE. PATIENT HAD A CRTICAL HEMOGLOBIN OF 6.6 THIS MORNING. PATIENT IS TO GET 1 UNIT OF BLOOD THIS MORNING. PATIENT REMAINS SINUS TACH ON THE MONITOR WITH THE HR BETWEEN 110 AND 115. PATIENT REMAINS ON 2L WITH CAPNO IN PLACE. WILL CONTINUE TO MONITOR.
[2018-06-14 07:50] VITALS: BP 110/67
[2018-06-14 12:01] VITALS: BP 117/66
[2018-06-14 13:58] VITALS: BP 118/63; BP 124/61; BP 126/70; BP 126/71
[2018-06-14 18:12] LABS: HEMATOCRIT 23.9 % (42.0-52.0); HEMOGLOBIN 7.9 gm/dL (14.0-18.0)
--- NOTE | 2018-06-14 18:27 | NUR ---
PATIENT A&OX4, ROOM AIR SATS AT 87-91, 2L O2 96. RIGHT UPPER ARM PICC SINGLE LUMEN. 1 UNIT OF BLOOD ADMINISTERED TODAY, TOLERATED WELL, NO REACTIONS. UP WITH ASSISTX2 WITH GAITBELT AND WALKER, HELP FROM PT. C/O PIAN, PARTIAL RELIEF WITH MEDICATION. EQUITY MANAGER PUMP DISCONTINUED, PT STATES WANTS TO TRY ORAL PAIN MEDICATION WITH IV PUSH. APPETITE BEGINING TO RETURN. NO OTHER CONCERNS AT THIS TIME. APPROPRIATE AND COOPORATIVE WITH CARE. WILL CONTINUE TO MONITOR.
[2018-06-15] VITALS: BP 102/60
[2018-06-15 04:00] VITALS: BP 117/57
[2018-06-15 04:53] LABS: HEMATOCRIT 22.1 % (42.0-52.0); HEMOGLOBIN 7.3 gm/dL (14.0-18.0); MCH 25.6 pg (26.0-34.0); MCHC 32.8 g/dL (28.0-37.0); MCV 78.1 fL (80.0-100.0); MPV 7.2 fl. (7.2-11.1); RBC 2.83 mil/uL (4.50-6.00); RDW-CV 16.9 % (10.5-14.5); WBC 7.7 thou/uL (4.0-11.0)
--- NOTE | 2018-06-15 06:31 | NUR ---
PATIENT SLEPT MOST OF THE NIGHT. PATIENT WAS GIVEN PAIN MEDICINE ABOUT EVERY FOUR HOURS. DRESSING TO RIGHT STUMP REMAINS C/D/I WITH IMMOBILIZER IN PLACE. PATIENT REMAINS LOW 100'S ON THE MONITOR. WILL CONTINUE TO MONITOR.
[2018-06-15 07:50] VITALS: BP 103/59
[2018-06-15 15:00] VITALS: BP 131/67
--- NOTE | 2018-06-15 17:19 | NUR ---
PATIENT A&OX4, 2L O2 NC. DESATS ON ROOM AIR MID TO HIGH 80S. RIGHT UPPER ARM PICC SINGLE LUMEN, SALINE LOCK. UP WITH ASSISTX2 WITH GAITBELT AND WALKER TO CHAIR AND BEDSIDE CAMMODE. C/O PAIN RIGHT BKA, MINIMAL TO NO RELIEF WITH MEDICATION. NEW ORAL PAIN MEDICATION ADDED. NO BOWEL MOVEMENT FOR 5 DAYS, SOFTENER GIVEN. ICE PACKS PROVIDED, AND IMMOBALIZER IN PLACE. LARGE WAFFLE CUSSION ORDER FOR PRESSURE RELIEF OF BOTTOM. PATIENT TURNS WELL IN BED. TOOLS FOR BED BATH PROVIDED, PATIENT STATES SIGNIFICANT OTHER WILL HELP ONCE ARRIVES. NO OTHER CONCERNS AT THIS TIME. APPROPRIATE AND COOPRATIVE WITH CARE. WILL CONTINUE TO MONITOR.
[2018-06-16 00:36] VITALS: BP 112/71
[2018-06-16 04:30] VITALS: BP 121/73
[2018-06-16 05:37] LABS: HEMATOCRIT 23.2 % (42.0-52.0); HEMOGLOBIN 7.5 gm/dL (14.0-18.0)
--- NOTE | 2018-06-16 06:10 | NUR ---
PATIENT SLEPT MOST OF THE NIGHT. PATIENT WAS GIVEN PAIN MEDICINE ABOUT EVERY FOUR HOURS. DRESSING TO RIGHT STUMP REMAINS DRY AND INTACT WITH IMMOBILIZER IN PLACE. WILL CONTINUE TO MONITOR.
[2018-06-16 08:00] VITALS: BP 120/64
--- NOTE | 2018-06-16 11:07 | PATH ---
[address] [address] PATHOLOGY RPT PROCEDURE Name: ANGEL LEE Room: [facility] IN .R.#: [id number] Admission: 06/11/18 Date of : 87 Discharge: Report #: [id number] Path Case #: [id number] LCA Accession Number: [id number] . 01 Material submitted: . RIGHT LOWER LEG (BKA) . 01 Clinical history: . Pre-op diagnosis: Osteomyelitis right foot Post-op diagnosis: Right lower extremity osteomyelitis . 02 Diagnosis: Right lower lobe, below knee amputation: - Benign right lower extremity with missing forefoot and with large nonspecific ulceration and chronic and acute inflammation of soft tissues at distal aspect with osteomyelitis of distal fibular and tibial bones. - Nonspecific ulceration of posterior lateral aspect just above calcaneus region. - Skin tattoo at proximal soft tissue margin with viable and noninflamed proximal tibial and fibular bone margins. - Minimal arteriosclerosis of anterior and posterior tibial arteries. (MORA:demetris; 06/13/2018) QMS/06/13/2018 . 02 Electronically signed: . Lefty Valerio MD, Pathologist NPI- [id number] . 01 Gross description: . The specimen is received fresh, labeled "Angel Lee Jr., right lower leg". Received is a below the knee amputation, with all five toes and most of the forefoot absent, measuring 17.2 cm from distal aspect of foot to heal, 21.6 cm from heel to skin margin, 36.1 cm from heel to tibial margin and 36.6 cm from heel to fibular margin. The bone margins are blunt in appearance, consistent with transection. The proximal skin and soft tissue margins appear viable. Along the lateral aspect of the skin margin near the proximal aspect, there is evidence of a tattoo. The distal aspect of the foot displays an open, inflamed to necrotic lesion measuring 10.1 x 6.6 cm. Further opening of the wound, both tibial and fibular distal articular surfaces are identified. On the posterior/lateral aspect of the specimen, just above the calcaneus, there is a well-circumscribed, irregular in contour and white-wright to light wright lesion measuring 2.8 x 2.5 cm, which is 15.0 cm from the skin margin. Sectioning through the anterior and tibial vasculatures reveals patent lumens with no gross evidence of calcification. The specimen is submitted representatively as follows: . A1 skin and soft tissue margin to include aforementioned tattoo A2 apprenticeship representative sections from skin surrounding [place] [address] PATHOLOGY RPT PROCEDURE Name: ANGEL LEE JR Room: [address] IN M.R.#: [id number] Admission: 06/11/18 Date of : 87 Discharge: Report #: [id number] Path Case #: [id number] aspect of foot A3 apprenticeship representative section of soft tissue from inside the wound near distal tibial bone margin A4 apprenticeship representative section of lesion and underlying bone on posterior/lateral aspect of specimen above calcaneus, following decalcification A5 distal fibular bone, following decalcification A6 distal tibial bone, following calcification A7 anterior tibial vasculature A8 posterior tibial vasculature A9 tibial bone margin, following decalcification A10 fibular bone margin, following decalcification. (CAA; 06/12/2018) QAC/QAC . 02 Pathologist provided ICD-10: I70.239, M86.8X6, M79.9 . 02 CPT . 404491, [id number] Specimen Comment: A courtesy copy of this report has been sent to Specimen Comment: [phone], , . Specimen Comment: Report sent to ,DR PENNINGTON / DR LLAMAS Specimen Comment: A duplicate report has been generated due to demographic updates. Performed at: 01 [facility] [address], [place], [place] [id number] MD René Arcos MD Phone: [phone] Performed at: 02 [facility] [address], [place], [place] [id number] MD Lefty Valerio MD Phone: [phone]
[2018-06-16 12:36] VITALS: BP 132/63
--- NOTE | 2018-06-16 16:36 | NUR ---
SHIFT NOTE - PT ASKING FOR PAIN MEDICATIONS SEVERAL TIMES THIS SHIFT. AT 1400, PT STATED HE WAS FEELING SHAKY AND ASKING FOR US TO CHECK HIS BLOOD SUGAR. RESULT WAS 40. PT GIVEN 2 ORANGE JUICES, MIKAL CRACKERS, AND PEANUT BUTTER. CHECKED BLOOD SUGAR IN 1 HOUR AND RESULTED 97. STATED HE IS FEELING MUCH BETTER. DR. COLLINS NOTIFIED. NO ORDERS RECEIVED. WILL CONTINUE TO MONITOR.
[2018-06-16 16:49] VITALS: BP 121/63
[2018-06-17 00:23] VITALS: BP 110/64
[2018-06-17 03:32] VITALS: BP 98/60
--- NOTE | 2018-06-17 06:11 | NUR ---
PATIENT ALERT/ORIENTED X4 AT BEGINNING OF SHIFT THEN SLEPT WELL DURING THE NIGHT. PT REQUESTED PAIN MEDICATION X2 AND RECEIVED HYDROCODONE 20MG AND MORPHINE 4MG IV. PT VERY DROWSY WHEN THESE MEDS WERE GIVEN AND WAS SOMEWHAT DISORIENTED WHEN WOKE. PT WITH STOCKING AND IMMOBOLIZER ON RT LEG. DSG C/D/I. PT ABLE TO REPOSITION HIMSELF IN BED. PT VOIDS DARK URINE PER URINAL. PT DENIES NEEDS AT THIS TIME. FREQUENTLY USED ITEMS AND CALL LIGHT WITHIN REACH. SIDERAILS UPX2. WILL CONTINUE TO MONITOR.
[2018-06-17 07:45] VITALS: BP 124/66
[2018-06-17 16:26] VITALS: BP 112/66
--- NOTE | 2018-06-17 16:48 | NUR ---
PATIENT A&OX4, ROOM AIR, PICC RIGHT UPPER ARM SINGLE LUMEN, SALINE LOCK. UP WITH ASSISTX1-2 WITH GAITBELT AND WALKER. C/O PIAN, MINIMAL TO PARTIAL RELEIF WITH MEDICATION; PIAN MORE UNDER CONTROL TODAY. DURING MORNING MED PASS, PATIENT DIDN'T WANT COLACE. EDUCATED PATIENT THAT HE HASN'T HAD BOWEL MOVEMENT FOR 7 DAYS. PATIENT STATES HE DOESN'T WANT TO USE BED FAGAN OR BEDSIDE CAMMODE, "TOO EMBARESED TO HAVE YOU GUYS CLEAN ME". RE ASSURED THAT WE ARE HERE TO HELP AND HE DOESN'T NEED TO GET A BOWEL OBSTRUCTION. PATIENT AGREED TO USE BEDSIDE CAMMODE. HAD BOWEL MOVEMENT THIS AFTERNOON. [employer] FITTED PATIENT FOR STUMP SENIOR RECRUITMENT CONSULTANT TODAY, TOLERATED WELL. IMMOBALIZER IN PLACE. BED BATH GIVEN BY SELF. NO OTHER CONCERNS AT THIS TIME. APPROPRIATE AND COOPORATIVE WITH CARE. WILL CONTINUE TO MONITOR.
[2018-06-18 04:15] LABS: HEMATOCRIT 23.2 % (42.0-52.0); HEMOGLOBIN 7.6 gm/dL (14.0-18.0); MCH 25.7 pg (26.0-34.0); MCHC 32.6 g/dL (28.0-37.0); MPV 6.9 fl. (7.2-11.1); RBC 2.94 mil/uL (4.50-6.00); RDW-CV 17.8 % (10.5-14.5); WBC 6.2 thou/uL (4.0-11.0)
[2018-06-18 04:49] LABS: CALCIUM 8.3 mg/dL (8.5-10.1); CREATININE 0.7 mg/dL (0.6-1.3); POTASSIUM 3.8 mmol/L (3.5-5.1)
--- NOTE | 2018-06-18 05:59 | NUR ---
PT SLEPT MOST OF SHIFT. ASSESSMENT DOCUMENETED. MEDS GIVEN PER E-MAR. PAIN MEDS GIVEN PER E-MAR WITH RELIEF. PICC PATENT. PT REFUSED REPOSTIONS THIS SHIFT STATING THAT HE TURNS HIMSELF. WILL CONTINUE WITH PLAN OF CARE.
[2018-06-18 07:45] VITALS: BP 124/59
--- NOTE | 2018-06-18 10:18 | NUR ---
INPATIENT REHAB CONSULT RECEIVED AND ACKNOWLEDGED BY DR ROMERO AND MAGNET PLACER. WILL FOLLOW MEDICAL CARE AND THERAPIES. THANK YOU
[2018-06-18] MEDS ORDERED: HUMALOG100 UNIT/1 SUBQ (11:37)
[2018-06-18] MEDS ORDERED: NEURONTIN600 MG PO (11:37)
[2018-06-18] MEDS ORDERED: ZOFRAN ODT4 MG PO (11:37)
[2018-06-18] MEDS ORDERED: OXYCODONE HCL10 MG PO (11:37)
[2018-06-18] MEDS ORDERED: NORCO 10-325 T1 EACH PO (11:37)
[2018-06-18] MEDS ORDERED: IBUPROFEN 400400 M2 PO (11:37)
--- NOTE | 2018-06-18 13:07 | NUR ---
PATIENT A&OX4, ROOM AIR, RIGHT UPPER ARM PICC SINGLE LUMEN, SALINE LOCK. UP WITH ASSISTX1-2 WITH GIATBELT AND WALKER. C/O PIAN, PARTIAL RELIEF WITH MEDICATION. WAITING FOR ADMISSION TO REHAB. NO OTHER CONCERNS AT THIS TIME. APPROPRIATE AND COOPORATIVE WITH CARE. WILL CONTINUE TO MONITOR.
--- NOTE | 2018-06-18 14:13 | NUR ---
ASSUMED CARE OF PATIENT AT 1300. REPORT RECEIVED. AGREE WITH PREVIOUS ASSESSMENT. PATIENT ADJUSTED TO IN BED WITH WAFFLE CUSHION IN PLACE. PICC LINE PATENT TO RIGHT UPPER ARM. PATIENT DENIES ANY FURTHER NEEDS. CALL LIGHT WITHIN REACH. WILL CONTINUE WITH PLAN OF CARE.
--- NOTE | 2018-06-18 15:21 | NUR ---
Possibility for pt to dc to inpt rehab unit. SW discussed with rehabilitation construction specialist who is reviewing referral. SW to continue to follow to assist with finalizing safe dc plan.
[2018-06-18 15:54] VITALS: BP 137/69
--- NOTE | 2018-06-18 16:57 | NUR ---
PATIENT HAS BEEN A/O X 4 THIS SHIFT. PATIENT MEDICATED THROUGHOUT THE SHIFT WITH PAIN MEDS WITH PARTIAL RELIEF. PATIENT WORKED WITH PT/OT THIS SHIFT. PATIENT'S BLOOD SUGARS MONITORED. VITALS STABLE. PATIENT'S DRESSING TO RIGHT STUMP C/D/I, IMMOBILIZER IN PLACE. PATIENT TURNED AND REPOSITIONED EVERY 2 HOURS, WAFFLE CUSHION IN PLACE. PATIENT HOPING TO BE DISCHARGED TO REHAB SOON. HOURLY ROUNDING COMPLETED. CALL LIGHT WITHIN REACH. WILL CONTINUE WITH PLAN OF CARE.
--- NOTE | 2018-06-18 17:45 | NUR ---
ASSUMED CARE OF PATIENT AT THIS TIME. REPORT RECEIVED FROM YOMAIRA CHAMBERLAIN
[2018-06-18 19:20] VITALS: BP 106/53
--- NOTE | 2018-06-19 00:47 | NUR ---
INTITAL ASSESMENT COMPLETED AT 1920. PT RESTING IN BED AT THAT TIME. PT GIVEN HS MEDS ORDERED PER EMAR. PT GIVEN PRN OXYCODONE AND NORCO FOR POST OP PAIN IN RIGHT LOWER EXTREMITY. INSULIN HELD AT HS FOR BLOOD SUGAR OF 85 AT 2100. PT ATE BOX LUNCH AND DECLINED FOLLOW UP ACCUCHECK. CALL LIGHT IN REACH. PT USING APPROPRIATELY.
--- NOTE | 2018-06-19 05:44 | NUR ---
PT SLOWLY PROGRESSING TOWARD GOALS. PAIN CONTOLLED DURING SHIFT WITH ORAL PAIN MEDICATION. PT'S VITAL SIGNS WITHIN NORMAL LIMITS. PT TAKING PO FOOD AND FLUIDS WITHOUT DIFFICULTY. NO NAUSEA OR VOMITING DURING SHIFT.
[2018-06-19 08:41] VITALS: BP 102/65
[2018-06-19 08:45] VITALS: BP 102/65
[2018-06-19 10:23] VITALS: BP 102/65
--- NOTE | 2018-06-19 12:47 | NUR ---
PT HAS BEEN APPROVED MY INSURANCE FOR INPATIENT REHAB ADMISSIONS AND WILL BE ADMITTED 06/19/18. THANK YOU
--- NOTE | 2018-06-19 13:08 | NUR ---
Pt to dc to inpt rehab today pending Medicaid insurance authorization. SW to continue to follow.
[2018-06-19 13:52] VITALS: BP 102/65
[2018-06-19 14:46] VITALS: BP 102/65
== END 2018-06-19 14:48 | DRG 617 ==
LOC: M.PRE 06:29 → M.3W 10:40 → M.TBA 10:40 → M.PRE 13:28 → M.TBA 16:11 → M.3W 16:47
PROVIDERS: Internal Medicine; Surgery; ADMIT Internal Medicine
PROC: 0Y6H0Z1 Detachment at Right Lower Leg, High, Open Approach (ICD-10-PCS; principal; 2018-06-11)
PROC: 02HV33Z Insertion of Infusion Device into Superior Vena Cava, Percutaneous Approach (ICD-10-PCS; 2018-06-12)
PROC: 30233N1 Transfusion of Nonautologous Red Blood Cells into Peripheral Vein, Percutaneous Approach (ICD-10-PCS; 2018-06-13)
DX: E11.69 Type 2 diabetes mellitus with other specified complication (principal); Z68.43 Body mass index [BMI] 50.0-59.9, adult; M86.8X6 Other osteomyelitis, lower leg; D62 Acute posthemorrhagic anemia; E11.621 Type 2 diabetes mellitus with foot ulcer; E66.01 Morbid (severe) obesity due to excess calories; F17.210 Nicotine dependence, cigarettes, uncomplicated; E11.65 Type 2 diabetes mellitus with hyperglycemia; Z79.899 Other long term (current) drug therapy; Z79.4 Long term (current) use of insulin

== ENCOUNTER 2018-06-19 12:43 | Inpatient (IN) | payer MEDICAID ==
[~2018-06-19] VITALS: Ht 193 cm; Wt 186.7 kg
--- NOTE | ~2018-06-19 | D ---
[facility] [address] [place] [address] DISCHARGE SUMMARY Name: ANGEL LEE Room: [address] IN .R.#: [id number] Admission: 06/19/18 Attend Phys: Ariadne Alvarado DO Discharge: Date of : 87 Report #: [id number] THIS REPORT FOR: //name// CC: Pato Alvarado DISCHARGE DIAGNOSIS: Right below knee amputation. DISCHARGE DISPOSITION: To the home setting with home health nursing. He will follow with Vascular Surgery on 07/24 at 10 a.m. He will follow with primary care physician in 1 week. Notifications for physician were given. DIET: Carb-controlled diabetic. Monitor weight gain. LIMITATIONS: Nonweightbearing on the right lower extremity, wheelchair for community and household ambulation, front-wheeled walker and a slide board for short distances and transfers. MEDICATIONS: Reviewed and reconciled by myself and are available in the MAR. He will maintain his home regimen for diabetic management unless otherwise noted by his primary care physician. Prescriptions were given for pain control including hydrocodone/APAP 10/325 one to two every 6 hours #180 and Oxycodone IR 10 mg 1-2 every 4 hours as needed #180. DISCHARGE PHYSICAL EXAMINATION: GENERAL: Alert, oriented, no apparent distress. VITAL SIGNS: Reviewed and are stable. HEENT: Head atraumatic, normocephalic. Pupils equal, round, reactive. ABDOMEN: Soft, nontender, nondistended. NEUROLOGIC: Cranial nerves 2 through 12 are grossly intact with no focal neuro deficits. EXTREMITIES: Right stump has stump icer machine operator on, and incision is not visualized at this time, but has been intact. By: [id number] Alvarado DO /ninoska
--- NOTE | ~2018-06-19 | H ---
[place] [address] HISTORY AND PHYSICAL Name: ANGEL LEE JR Room: [address] IN [facility].#: [id number] Admission: 06/19/18 Attend Phys: Ariadne Alvarado DO Discharge: Date of : 87 Report #: [id number] THIS REPORT FOR: //name// CC: Pato Alvarado [facility] CODE: 05.4. DATE OF SURGERY: 06/11/2018 HISTORY OF PRESENT ILLNESS: This is a 32-year-old male admitted to inpatient rehabilitation to facilitate safe discharge home, status post acute hospitalization for a 1- year history of nonhealing foot ulcer with known osteomyelitis that was not responding to conservative measures, wound care and IV antibiotics, who is now status post right below-knee amputation. He has multiple medical comorbidities and alterations in activities of daily living. His previous level of function was modified independent, independent with activities of daily living, was utilizing a cane. His current level of function is minimum assistance of 1-2 depending on therapy, activity and time of day with difficulty also with steps. He is utilizing a front-wheeled walker at this time, no significant changes since the preadmission screening. Estimated length of stay is 7-9 days with discharge disposition to the home setting where he lives in an accessible house. He does have steps to enter. He does have a girlfriend that lives with him and is able to provide some assistance. PAST MEDICAL HISTORY: Cellulitis of the right foot, dependent edema, cellulitis, right lower extremity, morbid obesity, anemia and uncontrolled diabetes type 2 with a random glucose of 200. PAST SURGICAL HISTORY: Right foot debridements, excisional transmetatarsal amputation on the right lower extremity. MEDICATIONS: Reviewed and reconciled by myself and are available in the MAR. ALLERGIES: No known drug allergies. SOCIAL HISTORY: He does smoke cigarettes 1 pack per day. No illicit drug use or alcohol use. FAMILY HISTORY: Diabetes. REVIEW OF SYSTEMS: A 14-point review of systems is done and is negative except as mentioned in the HPI, specifically no fever, chest pain, shortness of breath, abdominal pain or distention, change in bowel, change in bladder. PHYSICAL EXAMINATION: GENERAL: Alert, oriented, [place] [address] HISTORY AND PHYSICAL Name: ANGEL LEE Room: [address] IN [facility]#: [id number] Admission: 06/19/18 Attend Phys: Ariadne Alvarado DO Discharge: Date of : 87 Report #: [id number] VITAL SIGNS: Reviewed and are stable. HEENT: Head atraumatic, normocephalic. Pupils equal, round, reactive. ABDOMEN: Soft, nontender, nondistended. NEUROLOGIC: Cranial nerves 2 through 12 are grossly intact. No focal neuro deficits, 5/5 strength in bilateral upper and lower extremities. SKIN: Warm and dry. No rashes or lesions noted. Stump incision is not visualized at this time due to fresh dressing and stump hydrology professor in place. ASSESSMENT: 1. Status post right below-knee amputation due to nonhealing diabetic foot infection with osteomyelitis refractory to conservative treatment. 2. Alterations in activities of daily living, debility and mobility. 3. Multiple medical comorbidities including uncontrolled diabetes type 2. PLAN: 1. Admission to inpatient rehabilitation. 2. PT, OT, case management, nursing and HIMS to make evaluations and recommendations. 3. Plan of care is pending and we will team him weekly. 4. Pain control and pain management including neuropathic as well as musculoskeletal pain. By: [id number] Alvarado DO /nt
[~2018-06-19 12:43] MED LIST changes: +HUMALOG100 UNIT/1 SUBQ; +IBUPROFEN 400400 M2 PO; +NEURONTIN600 MG PO; -NICOTINE TRANSD21 M1; +NICOTINE TRANSD21 M1 TOP; +OXYCODONE HCL10 MG PO; +ZOFRAN ODT4 MG PO
--- NOTE | 2018-06-19 16:55 | NUR ---
ASSUMED CARE OF PT UPON ADMISSION TO UNIT, PT ALERT AND ORIENTED, DRESSING INTACT TO RIGHT LEG, IMMOBILIZER ON, PT ORIENTED TO REHAB ROUTINE, ASSESSMENT COMPLETED, HOURLY ROUNDING COMPLETE, WILL COTNINUE TO MONITOR.
[2018-06-19 19:24] VITALS: BP 110/54
--- NOTE | 2018-06-20 00:41 | NUR ---
ASSUMED CARE AT 1930. PATIENT RESTING IN BED, GIRLFRIEND PRESENT. TURNS SELF IN BED. TAKES PILLS WHOLE ALL AT ONE TIME. WANTS SLIDING SCALE CLARIFIED TOMORROW. KNEE IMMOBILIZER, STUMP INFORMATION TECHNOLOGY COORDINATOR PRESENT. DSSG C/D/I. VOIDS PER URINAL. REHAB ROUTINE REINFORCED. HOURLY ROUNDS CONTINUE. BED ALARM ON. CALL LITE IN REACH.
[2018-06-20 03:50] LABS: HEMOGLOBIN 8.3 gm/dL (14.0-18.0); MCHC 31.8 g/dL (28.0-37.0); MCV 78.5 fL (80.0-100.0); MPV 6.8 fl. (7.2-11.1); RBC 3.31 mil/uL (4.50-6.00); RDW-CV 17.9 % (10.5-14.5); WBC 9.2 thou/uL (4.0-11.0)
[2018-06-20 04:18] LABS: CALCIUM 8.5 mg/dL (8.5-10.1); CREATININE 0.8 mg/dL (0.6-1.3); POTASSIUM 4.3 mmol/L (3.5-5.1)
--- NOTE | 2018-06-20 05:47 | NUR ---
SLEPT MOST OF THE NIGHT AFTER MIDNIGHT. NO C/O PAIN. TURNS SELF. HOURLY ROUNDS CONTINUE. BED ALARM ON. CALL LITE IN REACH.
[2018-06-20 08:28] VITALS: BP 112/70
--- NOTE | 2018-06-20 16:26 | NUR ---
ASSUMMED CARE OF PT AT 0730, PT ALERT AND ORIENTED, TRANSFERS WITH SBA GB AND WALKER, AMB INTO BATHROOM HIOPPING WITH GB AND WALKER, TOLERATED WELL, PT COMPLAINS OF PAIN IN RIGHT STUMP, MEDICATED PER ORDER, DRESSING TO RIGHT STUMP C/D/I, IMMOBILIZER ON, TAKING FOOD AND FLUIDS WELL, VOIDS LARGE AMOUNTS PER URINAL, LARGE BM THIS SHIFT, TO DININGROOM FOR LUNCH, ORDER OBTAINED FOR PT TO DECIDE OWN AMOUNT OF LISPRO INSULIN, PARTICIPATED IN ALL THERAPIES, HOURLY ROUNDING COMPLETED ASSESSMENT COMPLETE WILL CONTINUE TO MONITOR.
--- NOTE | 2018-06-20 16:30 | NUR ---
SW met with pt to complete initial assessment, introduce self, and SW role on inpt rehab unit. Pt lives at home with significant other. Pt known to SW/EL due to previous record and previous hospitalizations. Pt has hx with [facility] and [facility]. Pt mentioned need of DME at dc and SW explained recommendations to be made by rehab team; SW to continue to follow to assist with safe dc planning.
[2018-06-20 20:03] VITALS: BP 137/81
--- NOTE | 2018-06-21 02:27 | NUR ---
ASSUMED CARE @ 1947-06/20-SATURDAY.AWAKE IN BED.SITS IN BED ON HIS TABLET. IMMOBILIZER IN PLACE RIGHT LE.RIGHT STUMP ON A PILLOW @ 1947.THREE URINALS W/IN REACH.LEFT HEEL-PINK @ 2199.LEFT HEEL OFF BED @ 2199.SEE PAIN MANAGEMENT @ 2199.ON HOURLY ROUNDS.POWER TRANSFORMER REPAIRER DOING ODD HOUR ROUNDS.TURNS SELF @ NIGHT.WANTS ONLY SIDERAILS X2 UP @ NIGHT.
--- NOTE | 2018-06-21 05:14 | NUR ---
SLEPT LATE @ 0000-06/21-SAT & SLEEPING GOOD ALL NIGHT.USED URINAL X1.ATE ALL TURKEY SANDWICH,PEACHES,CHIPS,MIKAL CRACKERS X3 PACKAGES W/ 2 SMALL PACKAGES PEANUT BUTTER-ALL HS SNACKS.
--- NOTE | 2018-06-21 06:25 | NUR ---
HI @ 2002-/MIN.HI RE-CHECKED @ 0649-86/MIN REGULAR.
[2018-06-21 07:00] VITALS: BP 123/68
[2018-06-21 07:57] VITALS: BP 123/68
--- NOTE | 2018-06-21 10:44 | NUR ---
AM ASSESSMENT AND VITAL SIGNS COMPLETED DOCUMENTED. PT HAS BEEN TO THE SHOWER WITH THERAPY THIS AM. PRN PAIN MEDICATION GIVEN FOR C/O PAIN IN THE RIGHT STUMP. STUMP COMBINATION MACHINE TENDER AND IMMOBILIZER ARE IN PLACE AT THIS TIME. PT REQUESTED TO HAVE HIS CARB COUNT INCREASED, EDUCATED ON THE IMPORTANCE OF WELL CONTROLLED BLOOD GLUCOSE FOR HEALING. FALL PRECAUTIONS AND HOURLY ROUNDING CONTINUE.
[2018-06-21 21:32] VITALS: BP 121/78
--- NOTE | 2018-06-22 01:40 | NUR ---
ASSUMED CARE @ -SAT.SITS IN W/C IN DINING ROOM VISITING W/ ANOTHER MALE PATIENT.RIGHT LE UP WHILE IN W/C.IMMOBILIZER IN PLACE RIGHT LE.SBA TO BED BY MANAGER REGISTRATION W/ GB & PIVOT TRANSFER @ 2034.MANAGER REGISTRATION ADJUSTED IMMOBILIZER WHILE PT IN BED.ISOLATION OBSERVED.HOB UP.WANTS ONLY SIDERAILS X2 UP,ALL LIGHTS OFF & DOOR CLOSED @ NIGHT.RIGHT STUMP UP ON A PILLOW.SEE PAIN MANAGEMENT @ 2230.PA @ 2132-100/MIN.PA RE-CHECKED @ 2200-92/MIN.THREE URINALS W/IN REACH.ON HOURLY ROUNDS.MANAGER REGISTRATION DOING ODD HOUR ROUNDS.
--- NOTE | 2018-06-22 05:23 | NUR ---
SLEPT LATE @ 2300 & SLEEPING GOOD ALL NIGHT.USED URINAL X1 ONLY.TOOK ALL DIABETIC SNACK TRAY PLUS DIET COKE X2,VANILLA ICE CREAM,& MIKAL CRACKERS X2 W/ PEANUT BUTTER HS SNACKS.
[2018-06-22 08:00] VITALS: BP 121/63
[2018-06-22 20:00] VITALS: BP 137/67
--- NOTE | 2018-06-23 01:38 | NUR ---
ASSUMED CARE @ 1924-06/22-SUN.AWAKE IN BED ON HIS SMART PHONE W/ HOB UP. IMMOBILIZER IN PLACE RIGHT LE.ISOLATION OBSERVED.WANTS ONLY SIDERAILS X2 UP, DOOR CLOSED & ALL LIGHTS OFF @ NIGHT.SEE PAIN MANAGEMENT @ 2132.URINALS X3 -ALL W/IN REACH.TURNS SELF @ NIGHT.ON HOURLY ROUNDS.SALT CUTTER DOING ODD HOUR ROUNDS.
--- NOTE | 2018-06-23 05:25 | NUR ---
SLEPT LATE @ 0100 & SLEEPING GOOD ALL NIGHT.USED URINAL X2.BRP X1 W/ SBA @ 2140-FOR LARGE BM.SBA ALSO FOR TOILETING.TOOK ALL MIKAL CRACKERS X 4 PACKAGES W/ PEANUT BUTTER X4 PACKAGES ALSO HS SNACKS.
[2018-06-23 08:30] VITALS: BP 111/63
--- NOTE | 2018-06-23 15:40 | NUR ---
ASSUMMED CARE OF PT AT 0730, PT ALERT AND ORIENTED, TRANSFERS WITH SBA AND GB WALKER WITH A STAND PIVOT,TAKING FOOD AND FLUIDS WELL, NEW ORDER TODAY THAT PT MAY BE MOD I IN ROOM, PT COMPLAINS OF RIGHT STUMP PAIN OF 8-10, MEDICATED PER ORDER, STUMP DRESSING CHANGED BY WAITER/WAITRESS SECOND CLASS, RASH NOTED ON LOWER BACK AND BUTTOCKS, MEDICATION OBTAINED AND OINTMENT APPLIED, PT PARTICIPATED IN ALL THERAPIES, HOURLY ROUNDING COMPLETED, ASSESSMENT COMPLETE, WILL CONTINUE TO MONITOR.
[2018-06-23 20:00] VITALS: BP 118/60
--- NOTE | 2018-06-24 01:09 | NUR ---
ASSUMED CARE AT 1930. PATIENT RESTING IN BED. MOD I IN ROOM WHEN USING W/C ONLY, NEEDS TO CALL IF HE NEEDS TO USE THE WALKER. VOIDS PER URINAL. TAKES MEDS WHOLE WITH WATER. TAKES INSULIN PER HIS OWN JUDGEMENT. HAD BIRTHDAY CAKE AND CHOCOLATE ICE CREAM FOR HS SNACK. RT STUMP DRESSING C/D/I, STUMP ENERGY CONTROL OFFICER IN PLACE, REFUSES IMMOBILIZER. RED, SCALY AND FLAKING RASH NOTED TO POSTERIOR THIGHS, PERINEUM AND BUTTOCKS. MEDICINE APPLIED PER ORDER BY THIS NURSE. ON ISOLATION FOR MRSA, INSTRUCTIONS GIVEN TO GIRLFRIEND WHO STAYED UNTIL AFTER 2100. CALL LITE IN REACH. HOURLY ROUNDS CONTINUE.
--- NOTE | 2018-06-24 05:33 | NUR ---
SLEPT MOST OF THE NIGHT AFTER ABOUT 2300. TURNS SELF IN BED. NO C/O PAIN. VOIDED PER URINAL. HOURLY ROUNDS CONTINUE. MOD I IN ROOM PER W/C. CALL LITE IN REACH.
[2018-06-24 07:44] VITALS: BP 105/57
--- NOTE | 2018-06-24 16:28 | NUR ---
ASSUMMED CARE OF PT AT 0730, PT ALERT AND ORIENTED, PT MOD I IN ROOM AT WHEELCHAIR LEVEL, ASSIST OF 1, GB WALKER TO AMBULATE TO BATHROOM, PT COMPLAINS OF PAIN IN HIS STUMP, MEDICATED PER ORDER, STUMP DRESSING INTACT, STUMP ELEVATED WHEN IN BED, PT TAKING FOOD AND FLUIDS WELL, PARTICIPATED IN ALL THERAPIES, HOURLY ROUNDING COMPLETED, ASSESSMENT COMPLETE, WILL CONTINUE TO MONITOR.
[2018-06-24 20:22] VITALS: BP 142/75
--- NOTE | 2018-06-25 07:15 | NUR ---
ASSUMED CARE OF PT ASSESSED AND DOCUMENTED. VITALS ARE WNL. PT IS ON ROOM AIR WITH CLEAR LUNGS. HE IS AFEBRILE. PT STATES HE IS CONCERNED ABOUT HIS AUTISTIC STEPDAUGHTER. HE STATES SHE HAS BECOME USED TO HIS MANY HOSPITALIZATIONS. PT HAS BEEN A DIABETIC SINCE THE AGE OF 11. PT IS ON FALL PRECAUTIONS PER FACILITY PROTOCOL. BED IS IN LOW POSITION CALL LIGHT IS IN REACH. WM.
[2018-06-25 08:26] VITALS: BP 106/56
--- NOTE | 2018-06-25 15:48 | NUR ---
Team conference held. Pt was in the middle of PT session during intial rounds after team. Dr Alvarado met with pt and reviewed team conference summary and plan for pt to dc home with significant other on Saturday. Pt in agreement with plan. SW to continue to follow to assist with safe dc planning.
--- NOTE | 2018-06-25 16:40 | NUR ---
PT HAS RESTED IN HIS ROOM BETWEEN THERAPY. HE HAS C/O PAIN X1 IN HIS R THIGH RATED AN 8 ON PAIN SCALE. 20 MG OF OXY GIVEN. CHANGED DRSG TO PTS STUMP AFTER CLEANING WITH WOUND CLEANSER. SANDRO ARE WELL APPROXIMATED. NO DRAINAGE NOTED. PTS GIRLFRIEND AT BEDSIDE FOR PART OF SHIFT. NYSTATIN APPLIED TO PTS RASH ON BACK AND BOTTOM. PT IS PROBABLE TO D/C HOME SATURDAY. EDUCATION GIVEN ON DEMAND. HOURLY ROUNDING CONTINUES.
[2018-06-25 20:18] VITALS: BP 122/68
--- NOTE | 2018-06-26 01:14 | NUR ---
ASSUMED CARE AT 1930. PATIENT WAS IN W/C AND IS MOD I IN ROOM WHEN USING W/C. TURNS SELF EASILY IN BED. TAKES PILLS WHOLE WITH WATER. REQUESTED 15 UNITS OF LISPRO FOR HIS SNACK OF MIKAL CRACKERS, PEANUT BUTTER AND CHOCOLATE ICE CREAM. DRESSING TO RT STUMP C/D/I, STUMP PICK UP IN PLACE. MEDICATED FOR STUMP PAIN AT HS. HOURLY ROUNDS CONTINUE. CALL LITE IN REACH.
--- NOTE | 2018-06-26 05:48 | NUR ---
SLEPT ALL NIGHT. NO FURTHER C/O PAIN. HOURLY ROUNDS CONTINUE. CALL LITE IN REACH. REMAINS ON MOD I IN ROOM WITH W/C.
[2018-06-26 07:59] VITALS: BP 123/71
[2018-06-26 15:09] VITALS: BP 123/71
--- NOTE | 2018-06-26 17:14 | NUR ---
Pt to dc home tomorrow with significant other. THADDEUS ordered RW and wc and prior authorized RW through Medicaid, Dr Alvarado to sign form from [facility] for wc authorization/necessity to be covered by Medicaid as well. [facility] to deliver equipment prior to pt dc home. THADDEUS explained to pt and SW to continue to follow to assist with safe dc planning.
--- NOTE | 2018-06-26 18:36 | NUR ---
AM ASSESSMENT AND VITAL SIGNS COMPLETED DOCUMENTED. PT CONTINUES TO WORK WITH THERAPIES AND IS MAKING PROGRESS. FALL PRECAUTIONS AND HOURLY ROUNDING CONTINUE.
[2018-06-26 20:33] VITALS: BP 114/68
--- NOTE | 2018-06-27 01:39 | NUR ---
ASSUMESD CARE @ -.SITS IN BED ON HIS TABLETIMMOBILIZER IN PLACE RIGHT STUMP.ISOLATION OBSERVED.URINALS X2 W/IN REACH.MOD IND IN ROOM W/ WALKER BUT INSTRUCTED TO CALL NURSE FOR SBA @ NIGHT IF WANTS BRP.SEE PAIN MANAGEMENT @ 1934 & 2237.APPLIES NYSTATIN CREAM IND TO RASHES LOWER BACK & BUTTOCKS. WAFFLE CUSHION IN BED ON BUTTOCK AREA.TURNS SELF @ NIGHT.WANTS ONLY SIDERAILS X2 UP,LIGHTS OFF & DOOR CLOSED @ NIGHT.HOB UP.ON HOURLY ROUNDS.BUSINESS DATABASE ANALYST DOING ODD HOUR ROUNDS.
[2018-06-27 03:05] VITALS: BP 123/71
[2018-06-27] MEDS ORDERED: NYAMYC15 GM TOP ×2 (03:24→03:26)
--- NOTE | 2018-06-27 05:09 | NUR ---
SLEEPING SINCE 2319 & SLEPT GOOD ALL NIGHT.USED URINAL X2.TOOK ALL JAVI.ICE CREAM,JAVI.PUDDING,MIKAL CRACKERS X4 PACKAGES W/ PEANUT BUTTER X4 PACKAGES HS SNACKS.FOR DISCHARGE TODAY 06/27-SATURDAY AROUND 1600.
[2018-06-27 07:00] VITALS: BP 103/54
[2018-06-27 07:54] VITALS: BP 103/54
--- NOTE | 2018-06-27 10:21 | NUR ---
AM ASSESSMENT AND VITAL SIGNS COMPLETED DOCUMENTED. PT SLEPT UNTIL 9AM THEN WOKE UP FOR BREAKFAST AND THERAPIES. PT IS UP IN A WHEELCHAIR AT THIS TIME AND IS MOD I IN HIS ROOM. STUMP MAINFRAME PROGRAMMER ANALYST AND PROTECTOR IN PLACE. PT IS LOOKING FORWARD TO GOING HOME LATER TODAY.
[2018-06-27 10:47] VITALS: BP 123/71
--- NOTE | 2018-06-27 10:53 | NUR ---
Pt to dc home with significant other today. Pt preference for [facility] services RN to follow and SW faxed referral and dc orders and med list to [facility] and spoke with Tessa in intake who accepted referral; pt was also still current with [facility]. SW finalized order for WC and RW and spoke with Shayna who confirmed delivery should be around Noon today. Pt has transportation home.
[2018-06-27] MEDS ORDERED: NORCO 10-325 T1 EACH PO (13:57)
[2018-06-27] MEDS ORDERED: OXYCODONE HCL 55 MG PO (13:58)
--- NOTE | 2018-06-27 15:02 | NUR ---
PT PROVIDED WITH DISCHARGE INSTRUCTIONS AND PRESCRIPTIONS. PT AND BELONGINGS TRANSPORTED TO EXIT. PT ASSISTED INTO CAR WITH HIS S.O., DISCHARGED HOME IN STABLE CONDITION.
--- NOTE | 2018-06-27 19:23 | NUR ---
PT. WAS DISCHARGED PER W/C WITH BELONGINGS AT 1502. 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 HE STATED HE HIT HIS RT. STUMP DURING FALL AND HE WAS HAVING SOME BLEEDING HE STATED HE WAS APPLYING PRESSURE TO AREA. INSTRUCTED HIM TO RETURN TO ER FOR THE DR. TO CHECK OUT THE STUMP AND THE BLEEDING. HE STATED HE COULDNT COME TO ER THERE WAS NO ONE THERE TO BRING HIM. HE MENTIONED HE WAS GOING TO CALL [facility] AND SEE IF THEY COULD COME TO CHECK HIM OUT ENCOURAGED HIM TO COME TO ER FOR ASSESSMENT. SPOKE TO [employer] RE THIS MATTER.
== END 2018-06-27 15:11 | disposition home health service (06) | DRG 638 ==
LOC: M.REH 12:43
PROVIDERS: ADMIT Physical Medicine & Rehabilitation
DX: E11.621 Type 2 diabetes mellitus with foot ulcer (principal); D62 Acute posthemorrhagic anemia; Z68.43 Body mass index [BMI] 50.0-59.9, adult; L97.519 Non-pressure chronic ulcer of other part of right foot with unspecified severity; E11.65 Type 2 diabetes mellitus with hyperglycemia; E66.01 Morbid (severe) obesity due to excess calories; F17.210 Nicotine dependence, cigarettes, uncomplicated; Z83.3 Family history of diabetes mellitus; Z79.4 Long term (current) use of insulin

== ENCOUNTER → 2018-08-20 | Outpatient (CLI) | payer MEDICAID ==
[~2018-08-20] MED LIST changes: +NYAMYC15 GM TOP; +OXYCODONE HCL 55 MG PO
== END ==
LOC: M.WC 07:39
DX: T87.89 Other complications of amputation stump (principal); E10.65 Type 1 diabetes mellitus with hyperglycemia; E10.42 Type 1 diabetes mellitus with diabetic polyneuropathy; E66.01 Morbid (severe) obesity due to excess calories; G40.409 Other generalized epilepsy and epileptic syndromes, not intractable, without status epilepticus; N52.9 Male erectile dysfunction, unspecified; F17.290 Nicotine dependence, other tobacco product, uncomplicated; F31.32 Bipolar disorder, current episode depressed, moderate; F41.9 Anxiety disorder, unspecified; Z79.4 Long term (current) use of insulin; Z68.43 Body mass index [BMI] 50.0-59.9, adult; Y83.5 Amputation of limb(s) as the cause of abnormal reaction of the patient, or of later complication, without mention of misadventure at the time of the procedure

== ENCOUNTER → 2018-09-10 | Outpatient (CLI) | payer MEDICAID | LOC: M.WC 08-27 04:13 | DX: T86.821 Skin graft (allograft) (autograft) failure (principal); E10.622 Type 1 diabetes mellitus with other skin ulcer; L97.811 Non-pressure chronic ulcer of other part of right lower leg limited to breakdown of skin; E10.42 Type 1 diabetes mellitus with diabetic polyneuropathy; E66.01 Morbid (severe) obesity due to excess calories; F17.200 Nicotine dependence, unspecified, uncomplicated; F31.9 Bipolar disorder, unspecified; Z89.511 Acquired absence of right leg below knee; Z68.43 Body mass index [BMI] 50.0-59.9, adult; Y83.2 Surgical operation with anastomosis, bypass or graft as the cause of abnormal reaction of the patient, or of later complication, without mention of misadventure at the time of the procedure ==

== ENCOUNTER → 2018-09-17 | Outpatient (CLI) | payer MEDICAID | LOC: M.WC 05:03 | DX: T86.821 Skin graft (allograft) (autograft) failure (principal); E10.622 Type 1 diabetes mellitus with other skin ulcer; L97.812 Non-pressure chronic ulcer of other part of right lower leg with fat layer exposed; E10.42 Type 1 diabetes mellitus with diabetic polyneuropathy; E66.01 Morbid (severe) obesity due to excess calories; F17.200 Nicotine dependence, unspecified, uncomplicated; F41.9 Anxiety disorder, unspecified; F31.9 Bipolar disorder, unspecified; Z68.43 Body mass index [BMI] 50.0-59.9, adult; Z89.511 Acquired absence of right leg below knee; Y83.2 Surgical operation with anastomosis, bypass or graft as the cause of abnormal reaction of the patient, or of later complication, without mention of misadventure at the time of the procedure ==

== ENCOUNTER → 2018-10-08 | Outpatient (CLI) | payer MEDICAID | LOC: M.WC 04:32 | DX: T86.821 Skin graft (allograft) (autograft) failure (principal); E10.622 Type 1 diabetes mellitus with other skin ulcer; L97.812 Non-pressure chronic ulcer of other part of right lower leg with fat layer exposed; E66.01 Morbid (severe) obesity due to excess calories; E10.42 Type 1 diabetes mellitus with diabetic polyneuropathy; F41.9 Anxiety disorder, unspecified; F17.200 Nicotine dependence, unspecified, uncomplicated; F31.9 Bipolar disorder, unspecified; Z68.43 Body mass index [BMI] 50.0-59.9, adult; Y83.2 Surgical operation with anastomosis, bypass or graft as the cause of abnormal reaction of the patient, or of later complication, without mention of misadventure at the time of the procedure ==

== ENCOUNTER → 2018-11-05 | Outpatient (CLI) | payer MEDICAID | LOC: M.WC 08:00 | DX: T87.89 Other complications of amputation stump (principal); E66.01 Morbid (severe) obesity due to excess calories; F31.9 Bipolar disorder, unspecified; F41.9 Anxiety disorder, unspecified; F17.200 Nicotine dependence, unspecified, uncomplicated; Z68.43 Body mass index [BMI] 50.0-59.9, adult; Y83.5 Amputation of limb(s) as the cause of abnormal reaction of the patient, or of later complication, without mention of misadventure at the time of the procedure ==